=== PATIENT | female | born 1975 ===

== ENCOUNTER 2016-12-12 16:23 | Inpatient (IN) | payer OTHER, MEDICAID ==
[~2016-12-12] VITALS: Ht 162.6 cm; Wt 93.4 kg
[~2016-12-12 16:23] MED LIST: DOXYCYCLINE MO100 MG ORAL; NORCO 10/3251 EA ORAL; VICODIN 5-3001 EACH ORAL; XANAX0.5 MG ORAL
[2016-12-12 17:06] VITALS: BP 105/67
--- NOTE | 2016-12-12 17:17 | Diagnostic Imaging Report ---
Indication: Vertebral Technique: One view of the chest Comparison: none Findings: Lungs and pleural spaces are clear. The heart size is normal. Aorta is tortuous and ectatic Impression: No acute process
[2016-12-12 17:21] LABS: BASOPHILS % (AUTO) 1.9 % (0.0-2.0); EOSINOPHILS % (AUTO) 3.5 % (0.0-3.0); LYMPHOCYTES % (AUTO) 24.6 % (20.0-45.0); MEAN CORPUSCULAR HEMOGLOBIN 21.6 PG (27.0-31.0); MEAN CORPUSCULAR HGB CONC 31.2 G/DL (32.0-36.0); MEAN CORPUSCULAR VOLUME 69 FL (80-99); MEAN PLATELET VOLUME 8.7 FL (6.5-10.1); MONOCYTES % (AUTO) 7.2 % (1.0-10.0); NEUTROPHILS % (AUTO) 62.8 % (45.0-75.0); PLATELET COUNT 333 K/UL (150-450); RED BLOOD COUNT 5.25 M/UL (4.20-5.40); RED CELL DISTRIBUTION WIDTH 14.6 % (11.6-14.8); WHITE BLOOD COUNT 9.1 K/UL (4.8-10.8)
[2016-12-12 17:37] LABS: APPEARANCE,URINE CLEAR; KETONES,URINE NEGATIVE (NEGATIVE); LEUKOCYTE ESTERASE ,URINE NEGATIVE (NEGATIVE); NITRITE,URINE NEGATIVE (NEGATIVE); PH,URINE 7 (4.5-8.0); PROTEIN,URINE NEGATIVE (NEGATIVE); UROBILINOGEN,URINE NORMAL MG/DL (0.0-1.0)
[2016-12-12 17:39] LABS: ALANINE AMINOTRANSFERASE 6 U/L (3-33); ALBUMIN/GLOBULIN RATIO 1.4 (1.0-2.7); ANION GAP 15 (5-15); ASPARTATE AMINO TRANSFERASE 11 U/L (5-40); CALCIUM 8.7 mg/dL (8.6-10.2); CARBON DIOXIDE 23 mEQ/L (20-30); CHLORIDE 99 mEQ/L (98-107); CREATININE 0.8 mg/dL (0.5-0.9); GLOMERULAR FILTRATION RATE > 60 mL/min (>60); HEMOLYSIS 3; POTASSIUM 4.2 mEQ/L (3.4-4.9); SODIUM 137 mEQ/L (135-145); TOTAL PROTEIN 6.8 g/dL (6.6-8.7); TROPONIN I < 0.30 ng/mL (<=0.30)
[2016-12-12 17:44] LABS: RBC,URINE 0-2 /HPF (0 - 2)
[2016-12-12 17:45] LABS: SQUAMOUS EPITHELIAL CELL,UR FEW /LPF (NONE/OCC); WBC,URINE 0 /HPF (0 - 2)
[2016-12-12 17:49] LABS: CKMB < 1.5 ng/mL (< 3.8)
[2016-12-12] MEDS ORDERED: XANAX0.5 MG ORAL (18:19)
--- NOTE | 2016-12-12 19:14 | History and Physical ---
History of Present Illness General Date patient seen: Dec 12, 2016 Time patient seen: 19:09 Reason for Hospitalization: Pain Present Illness HPI 41 y/o AA female with hx of hydradenitis for several years, not diagnosed until recently. She has significant disease in her groin and buttocks area. She has taken abx as an outpatient before (doxy) and that stopped working according to the pt. Denied ever having fevers/chills. She states that the pain has been increasing lately, preventing her from accomplishing some tasks, and that OTC pain meds are not longer providing relief. She has also noticed fluid draining from her buttocks the past 2 days, no fevers/chills. Denies smoking, occasional alcohol use, no recreational drug use. She just recently had surgery here and did not have periop or postop complications. Allergies: Coded Allergies: No Known Allergies (Unverified , 03/04/16) Medication History Scheduled Doxycycline Monohydrate* (Doxycycline Monohydrate*), 100 MG ORAL TWICE A DAY, ( Reported) Scheduled PRN Hydrocodone/Acetaminophen (Hydrocodon-Acetaminophn 10-325), 1 TAB ORAL Q6H PRN for For Pain, (Reported) Miscellaneous Medications Alprazolam* (Xanax*), 0.5 MG ORAL, (Reported) Patient History Healthcare decision maker Resuscitation status Advanced Directive on File Review of Systems ROS Narrative CONSTITUTIONAL: No weight loss, fever, chills, weakness or fatigue. HEENT: Eyes: No visual loss, blurred vision, double vision or yellow sclerae. Ears, Nose, Throat: No hearing loss, sneezing, congestion, runny nose or sore throat. SKIN: No rash or itching. CARDIOVASCULAR: No chest pain, chest pressure or chest discomfort. No palpitations or edema. RESPIRATORY: No shortness of breath, cough or sputum. GASTROINTESTINAL: No anorexia, nausea, vomiting or diarrhea. No abdominal pain or blood. NEUROLOGICAL: No headache, dizziness, syncope, paralysis, ataxia, numbness or tingling in the extremities. No change in bowel or bladder control. MUSCULOSKELETAL: No muscle, back pain, joint pain or stiffness. + buttocks pain , +buttocks drainage HEMATOLOGIC: No anemia, bleeding or bruising. LYMPHATICS: No enlarged nodes. No history of splenectomy. PSYCHIATRIC: No history of depression or anxiety. ENDOCRINOLOGIC: No reports of sweating, cold or heat intolerance. No polyuria or polydipsia. ALLERGIES: No history of asthma, hives, eczema or rhinitis. Physical Exam Physical Exam Narrative General: alert, cooperative, no distress, appears stated age Head: normocephalic, without obvious abnormality, atraumatic Eyes: conjunctivae/corneas clear. PERRL, EOM's intact Throat: lips, mucosa, and tongue normal. MMM Neck: supple, symmetrical, trachea midline, and no JVD Lungs: clear to auscultation bilaterally Heart: regular rate and rhythm, S1, S2 normal, no murmur, click, rub or gallop Abdomen: soft, non-tender, non-distended, bowel sounds normal; no masses or organomegaly Extremities: extremities normal, atraumatic, no cyanosis or edema. Buttocks shows a circumferential abscess with purulent fluid draining, no induration or fluctuance, no rubor, tender to palpation Pulses: 2+ and symmetric Skin: skin color, texture, turgor normal; no rashes or lesions Neurologic: grossly normal, no focal deficits Last 24 Hour Vital Signs Date Time Temp Pulse Resp B/P Pulse Ox O2 Delivery O2 Flow Rate FiO2 12/12/16 17:06 98.2 76 14 105/67 100 Room Air 12/12/16 16:29 97.9 86 19 117/78 98 Room Air Laboratory Tests Test 12/12/16 16:55 White Blood Count 9.1 K/UL (4.8-10.8) Red Blood Count 5.25 M/UL (4.20-5.40) Hemoglobin 11.4 G/DL (12.0-16.0) L Hematocrit 36.4 % (37.0-47.0) L Mean Corpuscular Volume 69 FL (80-99) L Mean Corpuscular Hemoglobin 21.6 PG (27.0-31.0) L Mean Corpuscular Hemoglobin Concent 31.2 G/DL (32.0-36.0) L Red Cell Distribution Width 14.6 % (11.6-14.8) Platelet Count 333 K/UL (150-450) Mean Platelet Volume 8.7 FL (6.5-10.1) Neutrophils (%) (Auto) 62.8 % (45.0-75.0) Lymphocytes (%) (Auto) 24.6 % (20.0-45.0) Monocytes (%) (Auto) 7.2 % (1.0-10.0) Eosinophils (%) (Auto) 3.5 % (0.0-3.0) H Basophils (%) (Auto) 1.9 % (0.0-2.0) Urine Color Pale yellow Urine Appearance Clear Urine pH 7 (4.5-8.0) Urine Specific [place] 1.005 (1.005-1.035) Urine Protein Negative (NEGATIVE) Urine Glucose (UA) Negative (NEGATIVE) Urine Ketones Negative (NEGATIVE) Urine Occult Blood 4+ (NEGATIVE) H Urine Nitrite Negative (NEGATIVE) Urine Bilirubin Negative (NEGATIVE) Urine Urobilinogen Normal MG/DL (0.0-1.0) Urine Leukocyte Esterase Negative (NEGATIVE) Urine RBC 0-2 /HPF (0 - 2) Urine WBC 0 /HPF (0 - 2) Urine Squamous Epithelial Cells Few /LPF (NONE/OCC) Urine Bacteria None /HPF (NONE) Sodium Level 137 mEQ/L (135-145) Potassium Level 4.2 mEQ/L (3.4-4.9) Chloride Level 99 mEQ/L (98-107) Carbon Dioxide Level 23 mEQ/L (20-30) Anion Gap 15 (5-15) Blood Urea Nitrogen 8 mg/dL (7-23) Creatinine 0.8 mg/dL (0.5-0.9) Estimat Glomerular Filtration Rate > 60 mL/min (>60) Glucose Level 88 mg/dL (74-106) Lactic Acid Level 1.00 mmol/L (0.66-2.22) Calcium Level 8.7 mg/dL (8.6-10.2) Total Bilirubin < 0.2 mg/dL (0.0-1.2) Aspartate Amino Transf (AST/SGOT) 11 U/L (5-40) Alanine Aminotransferase (ALT/SGPT) 6 U/L (3-33) Alkaline Phosphatase 63 U/L (35-104) Total Creatine Kinase 95 U/L (26-140) Creatine Kinase MB < 1.5 ng/mL (< 3.8) Creatine Kinase MB Relative Index 1.5 Troponin I < 0.30 ng/mL (<=0.30) Total Protein 6.8 g/dL (6.6-8.7) Albumin 4.0 g/dL (3.5-5.2) Globulin 2.8 g/dL Albumin/Globulin Ratio 1.4 (1.0-2.7) Height (Feet): 5 Height (Inches): 4.00 Weight (Pounds): 206 Medications Current Medications Medications (Trade) Dose Ordered Sig/[place] Route PRN Reason Start Time Stop Time Status Last Admin Dose Admin Acetaminophen (Tylenol) 650 mg Q4H PRN ORAL Mild Pain (Pain Scale 1-3) 12/12/16 19:15 01/11/17 19:14 UNV Acetaminophen (Tylenol) 650 mg Q4H PRN ORAL fever 12/12/16 19:15 01/11/17 19:14 UNV Al Hydroxide/Mg Hydroxide (Mylanta II) 30 ml Q6H PRN ORAL dyspepsia 12/12/16 19:15 01/11/17 19:14 UNV Bisacodyl (Dulcolax) 10 mg HSPRN PRN RECTAL Constipation 12/12/16 19:15 01/11/17 19:14 UNV Cefazolin Sodium (Ancef 1gm/50ml premix) 50 ml @ 100 mls/hr Q8HR IVPB 12/12/16 22:00 12/19/16 21:59 UNV Dextrose STAT PRN IV Hypoglycemia 12/12/16 19:15 01/11/17 19:14 UNV Dextrose/Sodium Chloride (D5ns) 1,000 ml @ 50 mls/hr Q20H IV 12/13/16 00:00 01/12/17 00:00 UNV Diphenhydramine HCl (Benadryl) 25 mg Q6H PRN ORAL Itching/Pruritis 12/12/16 19:15 01/11/17 19:14 UNV Docusate Sodium (Colace) 100 mg EVERY 12 HOURS ORAL 12/12/16 21:00 01/11/17 20:59 UNV Magnesium Hydroxide (Mom) 30 ml HSPRN PRN ORAL Constipation 12/12/16 19:15 01/11/17 19:14 UNV Morphine Sulfate (Morphine Sulfate) 2 mg Q4HR PRN IVP Moderate Pain (Pain Scale 4-6) 12/12/16 19:15 12/19/16 19:14 UNV Morphine Sulfate (Morphine Sulfate) 4 mg Q4HR PRN IVP Severe Pain (Pain Scale 7-10) 12/12/16 19:15 12/19/16 19:14 UNV Ondansetron HCl (Zofran) 4 mg Q6H PRN IVP Nausea & Vomiting 12/12/16 19:15 01/11/17 19:14 UNV Polyethylene Glycol (Miralax) 17 gm HSPRN PRN ORAL Constipation 12/12/16 19:15 01/11/17 19:14 UNV Temazepam (Restoril) 15 mg HSPRN PRN ORAL Insomnia 12/12/16 19:15 12/19/16 19:14 UNV Assessment/Plan Problem List: (1) Abscess of skin and subcutaneous tissue Assessment & Plan: Admit to inpatient Start IV abx Pain control Supp care Consult plastic surgery to determine if pt needs operative debridement or I+D f/u blood cx If patient is required to have surgery, based on the patient's medical history, and other available ancillary data, the patient is a LOW risk for an INTERMEDIATE risk procedure. Per the most recent ACC/AHA guidelines, the patient does not need any further cardiopulmonary testing prior to the procedure and there do not appear to be any clear medical contraindications to proceeding with the proposed procedure. A total of 31 mins of additional time was spent with the patient and coordination of care and counseling in addition to the face to face time spent with the patient ICD Codes: L02.91 - Cutaneous abscess, unspecified SNOMED: [id number] LEONARDO VASQUEZ Dec 12, 2016 19:14
[2016-12-12] MEDS ORDERED: Mylanta II UD 30ml ORAL PRN (19:15)
[2016-12-12] MEDS ORDERED: Morphine Sulfate 2mg/ml Inj IVP PRN (19:15)
[2016-12-12] MEDS ORDERED: Milk of Magnesia 30ml Ud ORAL PRN (19:15)
[2016-12-12] MEDS ORDERED: Morphine Sulfate 4mg/ml Inj IVP PRN (19:15)
[2016-12-12] MEDS ORDERED: Miralax 17gm pkt ORAL PRN (19:15)
[2016-12-12 19:31] VITALS: BP 111/71
[2016-12-12 20:00] VITALS: BP 102/70
--- NOTE | 2016-12-12 20:08 | Emergency Room Report ---
History of Present Illness General Chief Complaint: Pain Source: Patient Present Illness HPI 41-year-old female sent to ED for evaluation. Patient referred here by Dr. Sloan. Patient has history of hidradenitis in multiple areas of her body. patient has had multiple surgeries over the years. Patient was sent here today because she had drainage from hidradenitis on her left buttocks. Denies any pain. Denies any fevers or chills. No aggravating or relieving factors. Denies any other associated symptoms Allergies: Coded Allergies: No Known Allergies (Unverified , 03/04/16) Patient History Past Medical History: none Past Surgical History: none Pertinent Family History: none Social History: Denies: alcohol use, drug use, smoking Last Menstrual Period: 12/10/16 Now: No Immunizations: UTD Reviewed Nursing Documentation: PMH: Agreed, PSxH: Agreed Nursing Documentation-PMH Past Medical History: No History, Except For Hx Cardiac Problems: No Hx Cancer: No Hx Gastrointestinal Problems: No Hx Neurological Problems: No - hidradenitis Review of Systems All Other Systems: negative except mentioned in HPI Physical Exam Vital Signs Date Time Temp Pulse Resp B/P Pulse Ox O2 Delivery O2 Flow Rate FiO2 12/12/16 16:29 97.9 86 19 117/78 98 Room Air Sp02 EP Interpretation: reviewed, normal General Appearance: no apparent distress, alert, GCS 15, non-toxic Head: normocephalic ENT: normal ENT inspection Neck: normal inspection Respiratory: chest non-tender, lungs clear, normal breath sounds, speaking full sentences Cardiovascular #1: regular rate, rhythm, no edema Gastrointestinal: normal bowel sounds, non tender, soft, non-distended, no guarding, no rebound Rectal: deferred Genitourinary: no CVA tenderness Musculoskeletal: normal inspection Neurologic: alert, oriented x3, responsive, motor strength/tone normal, sensory intact, speech normal Psychiatric: normal inspection Skin: other - hidradenitis to L buttock with drainage noted Lymphatic: normal inspection Medical Decision Making Diagnostic Impression: Primary Impression: infected hidradenitis ER Course Hospital Course 41-year-old female referred to ED for evaluation of drainage from her buttock. History of hidradenitis Differential diagnoses include: cellulitis, hidradenitis, fistula Clinical course Patient placed on stretcher. After initial history and physical I ordered labs , blood Cx, EKG, CXR labs reviewed -no leukocytosis, Hb/Hct stable, no electrolyte abnormalities. EKG - NSR, no ischemic changes CXR unremarkable wound culture obtained antibiotics given. Case discussed with Dr Ware and he agreed to accept the patient to his service for further care and support Diagnosis - infected hidradenitis Patient admitted to floor in serious condition Labs Test 12/12/16 16:55 White Blood Count 9.1 K/UL (4.8-10.8) Red Blood Count 5.25 M/UL (4.20-5.40) Hemoglobin 11.4 G/DL (12.0-16.0) Hematocrit 36.4 % (37.0-47.0) Mean Corpuscular Volume 69 FL (80-99) Mean Corpuscular Hemoglobin 21.6 PG (27.0-31.0) Mean Corpuscular Hemoglobin Concent 31.2 G/DL (32.0-36.0) Red Cell Distribution Width 14.6 % (11.6-14.8) Platelet Count 333 K/UL (150-450) Mean Platelet Volume 8.7 FL (6.5-10.1) Neutrophils (%) (Auto) 62.8 % (45.0-75.0) Lymphocytes (%) (Auto) 24.6 % (20.0-45.0) Monocytes (%) (Auto) 7.2 % (1.0-10.0) Eosinophils (%) (Auto) 3.5 % (0.0-3.0) Basophils (%) (Auto) 1.9 % (0.0-2.0) Urine Color Pale yellow Urine Appearance Clear Urine pH 7 (4.5-8.0) Urine Specific [place] 1.005 (1.005-1.035) Urine Protein Negative (NEGATIVE) Urine Glucose (UA) Negative (NEGATIVE) Urine Ketones Negative (NEGATIVE) Urine Occult Blood 4+ (NEGATIVE) Urine Nitrite Negative (NEGATIVE) Urine Bilirubin Negative (NEGATIVE) Urine Urobilinogen Normal MG/DL (0.0-1.0) Urine Leukocyte Esterase Negative (NEGATIVE) Urine RBC 0-2 /HPF (0 - 2) Urine WBC 0 /HPF (0 - 2) Urine Squamous Epithelial Cells Few /LPF (NONE/OCC) Urine Bacteria None /HPF (NONE) Sodium Level 137 mEQ/L (135-145) Potassium Level 4.2 mEQ/L (3.4-4.9) Chloride Level 99 mEQ/L (98-107) Carbon Dioxide Level 23 mEQ/L (20-30) Anion Gap 15 (5-15) Blood Urea Nitrogen 8 mg/dL (7-23) Creatinine 0.8 mg/dL (0.5-0.9) Estimat Glomerular Filtration Rate > 60 mL/min (>60) Glucose Level 88 mg/dL (74-106) Lactic Acid Level 1.00 mmol/L (0.66-2.22) Calcium Level 8.7 mg/dL (8.6-10.2) Total Bilirubin < 0.2 mg/dL (0.0-1.2) Aspartate Amino Transf (AST/SGOT) 11 U/L (5-40) Alanine Aminotransferase (ALT/SGPT) 6 U/L (3-33) Alkaline Phosphatase 63 U/L (35-104) Total Creatine Kinase 95 U/L (26-140) Creatine Kinase MB < 1.5 ng/mL (< 3.8) Creatine Kinase MB Relative Index 1.5 Troponin I < 0.30 ng/mL (<=0.30) Total Protein 6.8 g/dL (6.6-8.7) Albumin 4.0 g/dL (3.5-5.2) Globulin 2.8 g/dL Albumin/Globulin Ratio 1.4 (1.0-2.7) EKG Diagnostic Results Rate: normal Rhythm: NSR ST Segments: no acute changes ASA given to the pt in ED: No Rhythm Strip Diag. Results EP Interpretation: yes Rhythm: NSR, no PVC's, no ectopy Chest X-Ray Diagnostic Results EP Interpretation: No Findings: no consolidation, no effusion, no pneumothorax, no acute cardiopulmonary disease Number of Views: 1 Last Vital Signs Date Time Temp Pulse Resp B/P Pulse Ox O2 Delivery O2 Flow Rate FiO2 12/12/16 19:36 98.4 71 16 111/71 100 Room Air Status: improved Disposition: ADMITTED INPATIENT Condition: Serious Referrals: NON PHYSICIAN (PCP) LEON AYERS M.D. Dec 12, 2016 20:08
[2016-12-12] MEDS: Docusate 100mg cap ORAL SCH (21:00)
[2016-12-12] MEDS: ceFAZolin sod 1 GM in D5W 55 ML IVP SCH (22:19)
[2016-12-13] VITALS (16 sets, daily range): BP systolic 106–138; BP diastolic 60–83
[2016-12-13] MEDS: D5NS 1,000 ML IV SCH ×2 (01:59→20:00)
[2016-12-13] MEDS: ceFAZolin sod 1 GM in D5W 55 ML IVP SCH ×3 (05:55→21:47)
[2016-12-13 07:31] LABS: ANION GAP 14 (5-15); CALCIUM 7.9 mg/dL (8.6-10.2); CARBON DIOXIDE 24 mEQ/L (20-30); CHLORIDE 104 mEQ/L (98-107); CREATININE 0.8 mg/dL (0.5-0.9); GLOMERULAR FILTRATION RATE > 60 mL/min (>60); HEMOLYSIS 0; POTASSIUM 3.9 mEQ/L (3.4-4.9); SODIUM 142 mEQ/L (135-145)
[2016-12-13 07:37] LABS: PROTHROMBIN TIME 10.5 SEC (9.30-11.50)
[2016-12-13] MEDS: Docusate 100mg cap ORAL SCH ×2 (09:00→21:47)
--- NOTE | 2016-12-13 09:00 | Pre-Procedure Note/Attestation ---
Pre-Procedure Note/Attestation Complete Prior to Procedure Planned Procedure: left Procedure Narrative: Left breast wound closure and excision of pilonidal cyst with flap closure Attestation I attest that I discussed the nature of the procedure; its benefits; risks and complications; and alternatives (and the risks and benefits of such alternatives ), prior to the procedure, with the patient (or the patient's legal leather goods sales representative). I attest that, if there was a reasonable possibility of needing a blood transfusion, the patient (or the patient's legal leather goods sales representative) was given the [facility] standardized written summary, pursuant to the Bhaskar [place] Blood Safety Act ([place] Health and Safety Code # 1645, as amended). I attest that I re-evaluated the patient just prior to the surgery and that there has been no change in the patient's H&P, except as documented below: WANDER CHAUHAN Dec 13, 2016 09:00
--- NOTE | 2016-12-13 09:01 | Operative Note - PDOC ---
Operative Note Operative Note Pre-op Diagnosis: Left breast wound and infected pilonidal cyst Procedure: Closure of left breast wounds and excision of infected pilonidal cyst with flap closure Post-op Diagnosis: same as pre-op Surgeon: Luther Holder Pile Driving: Terrell Anesthesia: general Specimen: yes Complications: none Condition: stable Estimated Blood Loss: minimal Drains: JOHANA Implant(s) used?: No WANDER CHAUHAN Dec 13, 2016 09:01
[2016-12-13] MEDS ORDERED: Zolpidem 5mg tab ORAL PRN (09:15)
[2016-12-13] MEDS ORDERED: Bacitracin 50000 Units Vial ONE (09:34)
[2016-12-13] MEDS ORDERED: Lidocaine 1% 10mg/ml/Epi 0.005mg/ml 30ml vial INJ ONE (09:34)
[2016-12-13] MEDS ORDERED: NS Irrig 1000ml IRRIG ONE (09:50)
[2016-12-13] MEDS ORDERED: Zemuron 50mg/5ml Inj IV ONE (10:00)
[2016-12-13] MEDS ORDERED: fentaNYL 250mcg/5ml ONE (10:00)
[2016-12-13] MEDS ORDERED: Sterile Water Irrig 1000ml IRRIG ONE (10:00)
[2016-12-13] MEDS ORDERED: Midazolam 2mg/2ml Inj ONE (10:00)
[2016-12-13] MEDS ORDERED: Glycopyrrolate 0.2mg/ml 1ml Vial ONE (10:00)
[2016-12-13] MEDS ORDERED: Ketorolac 30mg Inj ONE (10:00)
[2016-12-13] MEDS ORDERED: NS Irrig 1000ml ONE (10:00)
[2016-12-13] MEDS ORDERED: Propofol 10mg/ml 20ml IV ONE ×2 (10:00)
[2016-12-13] MEDS ORDERED: Succinylcholine 20mg/ml 10ml vial ONE (10:00)
[2016-12-13] MEDS ORDERED: Neostigmine 1mg/ml 10ml Inj ONE (10:00)
[2016-12-13] MEDS ORDERED: LR 1000ml ONE (10:00)
[2016-12-13] MEDS ORDERED: Surgicel 4in x 8in TOPIC ONE (10:23)
--- NOTE | 2016-12-13 10:29 | Anethesia Preoperative Eval ---
Anesthesia Pre-op PMH/ROS General Date of Evaluation: Dec 13, 2016 Time of Evaluation: 09:10 Anesthesiologist: Ovidio ASA Score: ASA 2 Mallampati Score Class I : Soft palate, uvula, fauces, pillars visible Class II: Soft palate, uvula, fauces visible Class III: Soft palate, base of uvula visible Class IV: Only hard plate visible Mallampati Classification: Class II Surgeon: Layla Diagnosis: L breas wound dehisense infected pilonidal cyst Surgical Procedure: Revision and closure of L breast wound excision of pilonidal cyst Anesthesia History: none Family History: no anesthesia problems Allergies: Coded Allergies: No Known Allergies (Unverified , 03/04/16) Past Medical History Cardiovascular: Denies: CAD, HTN, ID, arrhythmia, other, valve dz Pulmonary: Denies: COPD, DARLENE, asthma, other Gastrointestinal/Genitourinary: Reports: GERD, Denies: CRI, ESRD, other Neurologic/Psychiatric: Denies: CVA, TIA, dementia, depression/anxiety, other Endocrine: Denies: DM, hypothyroidism, other, steroids HEENT: Denies: [place] (L), [place] (R), cataract (L), cataract (R), glaucoma, other Hematology/Immune: Reports: anemia - mild, Denies: DVT, bleeding disorder, other Musculoskeletal/Integumentary: Reports: other - Recurrent HS, Denies: DDD, DJD, OA, RA, edema Other: obesity PMH Narrative: as above PSxH Narrative: Multiple Sx for HS treatment, breasts reduction Anesthesia Pre-op Phys. Exam Physician Exam Last Vital Signs Date Time Temp Pulse Resp B/P Pulse Ox O2 Delivery O2 Flow Rate FiO2 12/13/16 08:00 97.3 65 21 118/83 99 Room Air Constitutional: NAD Neurologic: CN 2-12 intact Cardiovascular: RRR, no M/R/G Respiratory: CTA Gastrointestinal: other - obesity Airway Exam Mallampati Score: Class II MO: full Neck: flexible ROM: full Teeth: intact Dentures: no lower, no upper Anesthesia Pre-op A/P Labs Hematology Test 12/12/16 16:55 White Blood Count 9.1 K/UL (4.8-10.8) Red Blood Count 5.25 M/UL (4.20-5.40) Hemoglobin 11.4 G/DL (12.0-16.0) L Hematocrit 36.4 % (37.0-47.0) L Mean Corpuscular Volume 69 FL (80-99) L Mean Corpuscular Hemoglobin 21.6 PG (27.0-31.0) L Mean Corpuscular Hemoglobin Concent 31.2 G/DL (32.0-36.0) L Red Cell Distribution Width 14.6 % (11.6-14.8) Platelet Count 333 K/UL (150-450) Mean Platelet Volume 8.7 FL (6.5-10.1) Neutrophils (%) (Auto) 62.8 % (45.0-75.0) Lymphocytes (%) (Auto) 24.6 % (20.0-45.0) Monocytes (%) (Auto) 7.2 % (1.0-10.0) Eosinophils (%) (Auto) 3.5 % (0.0-3.0) H Basophils (%) (Auto) 1.9 % (0.0-2.0) Coagulation Test 12/13/16 06:40 Prothrombin Time 10.5 SEC (9.30-11.50) Prothromb Time International Ratio 1.0 (0.9-1.1) Activated Partial Thromboplast Time 28 SEC (23-33) Chemistry Test 12/12/16 16:55 12/13/16 06:40 Sodium Level 137 mEQ/L (135-145) 142 mEQ/L (135-145) Potassium Level 4.2 mEQ/L (3.4-4.9) 3.9 mEQ/L (3.4-4.9) Chloride Level 99 mEQ/L (98-107) 104 mEQ/L (98-107) Carbon Dioxide Level 23 mEQ/L (20-30) 24 mEQ/L (20-30) Anion Gap 15 (5-15) 14 (5-15) Blood Urea Nitrogen 8 mg/dL (7-23) 7 mg/dL (7-23) Creatinine 0.8 mg/dL (0.5-0.9) 0.8 mg/dL (0.5-0.9) Estimat Glomerular Filtration Rate > 60 mL/min (>60) > 60 mL/min (>60) Glucose Level 88 mg/dL (74-106) 97 mg/dL (74-106) Lactic Acid Level 1.00 mmol/L (0.66-2.22) Calcium Level 8.7 mg/dL (8.6-10.2) 7.9 mg/dL (8.6-10.2) L Total Bilirubin < 0.2 mg/dL (0.0-1.2) Aspartate Amino Transf (AST/SGOT) 11 U/L (5-40) Alanine Aminotransferase (ALT/SGPT) 6 U/L (3-33) Alkaline Phosphatase 63 U/L (35-104) Total Creatine Kinase 95 U/L (26-140) Creatine Kinase MB < 1.5 ng/mL (< 3.8) Creatine Kinase MB Relative Index 1.5 Troponin I < 0.30 ng/mL (<=0.30) Total Protein 6.8 g/dL (6.6-8.7) Albumin 4.0 g/dL (3.5-5.2) Globulin 2.8 g/dL Albumin/Globulin Ratio 1.4 (1.0-2.7) Urine Test Test 12/13/16 08:00 Urine HCG, Qualitative Negative Risk Assessment & Plan Assessment: ASA 2 Plan: GA with ETT prone position for 2-nd part Status Change Before Surgery: No Pre-Antibiotics Drug: Ancef 2gr. Given Within 1 Hr of Incision: Yes Time Given: 10:05 YOGI MANLEY M.D. Dec 13, 2016 10:29
[2016-12-13] MEDS ORDERED: LR 1000ml 1,000 ML IVLG SCH (11:02)
[2016-12-13] MEDS ORDERED: fentaNYL 100 mcg/2 mL IV PRN (11:15)
[2016-12-13] MEDS ORDERED: Meperidine 25mg/ml Inj IV PRN (11:15)
[2016-12-13] MEDS ORDERED: Hydromorphone 0.5mg/0.5ml inj IVP PRN (11:15)
[2016-12-13] MEDS ORDERED: Ketorolac 30mg Inj IV PRN (11:15)
[2016-12-13] MEDS ORDERED: DiphenhydrAMINE 50mg/ml Inj IVP PRN (11:15)
[2016-12-13] MEDS ORDERED: Midazolam 2mg/2ml Inj IVP PRN (11:15)
[2016-12-13] MEDS ORDERED: Metoclopramide 10mg/2ml Inj IVP PRN (11:15)
[2016-12-13] MEDS ORDERED: Rate Change PCA 1 Each MISC PRN (13:00)
[2016-12-13] MEDS: PCA shift volume MISC SCH ×3 (13:00→23:15)
--- NOTE | 2016-12-13 13:11 | Immediate Post-Op Evaluation ---
Immediate Post-Op Evalulation Immediate Post-Op Evalulation Procedure: Revision and closure of L breast wounds excision of pilonidal cyst Date of Evaluation: Dec 13, 2016 Time of Evaluation: 11:50 IV Fluids: 1200 Blood Products: none Estimated Blood Loss: 50 Urinary Output: none Blood Pressure Systolic: 124 Blood Pressure Diastolic: 72 Pulse Rate: 68 Respiratory Rate: 20 O2 Sat by Pulse Oximetry: 99 Temperature (Fahrenheit): 97.6 Pain Score (1-10): 2 Nausea: No Vomiting: No Complications none Patient Status: reacts, patent, extubated, none Hydration Status: adequate YOGI MANLEY M.D. Dec 13, 2016 13:11
[2016-12-13] MEDS ORDERED: Morphine Sulfate 4mg/ml Inj IVP PRN (13:15)
[2016-12-13] MEDS: PCA HYDROmorphone 1mg/ml 30 ML IV PRN ×2 (13:23→14:17)
[2016-12-13] MEDS ORDERED: ceFAZolin sod 1 GM in D5W 55 ML IVPB SCH (14:00)
--- NOTE | 2016-12-13 14:41 | General Progress Note ---
Assessment/Plan Problem List: (1) Abscess of skin and subcutaneous tissue Assessment & Plan: Cont IV abx Pain control Supp care Consult plastic surgery to determine if pt needs operative debridement or I+D f/u blood cx A total of 31 mins of additional time was spent with the patient and coordination of care and counseling in addition to the face to face time spent with the patient ICD Codes: L02.91 - Cutaneous abscess, unspecified SNOMED: 71366977 Subjective Date patient seen: Dec 13, 2016 Time patient seen: 14:38 ROS Limited/Unobtainable: No Allergies: Coded Allergies: No Known Allergies (Unverified , 03/04/16) Subjective s/p I+D of abscess, no periop or postop complications. No chest pain or dyspnea , no n/v. Objective Last 24 Hour Vital Signs Date Time Temp Pulse Resp B/P Pulse Ox O2 Delivery O2 Flow Rate FiO2 12/13/16 14:00 98.0 68 18 109/69 99 Room Air 12/13/16 13:55 12 12/13/16 13:53 98.0 12/13/16 13:45 66 17 108/70 99 Room Air 12/13/16 13:40 11 12/13/16 13:30 97.8 68 16 109/72 99 Room Air 12/13/16 13:23 11 12/13/16 13:15 67 16 106/71 99 Room Air 12/13/16 13:11 68 20 99 12/13/16 13:00 60 15 114/70 99 Room Air 12/13/16 12:45 60 12 116/70 100 Room Air 12/13/16 12:30 89 19 128/73 100 Room Air 12/13/16 12:15 68 16 128/75 100 Simple Mask 6.0 12/13/16 12:06 61 16 125/75 100 Simple Mask 6.0 12/13/16 11:56 68 16 120/83 100 Simple Mask 6.0 12/13/16 11:51 74 16 115/71 100 Simple Mask 6.0 12/13/16 11:46 99.4 88 15 138/78 100 Simple Mask 6.0 12/13/16 08:00 97.3 65 21 118/83 99 Room Air 12/13/16 04:00 97.7 72 20 115/65 99 Room Air 2/16/17 20:00 97.9 81 17 102/70 99 Room Air 12/12/16 19:36 98.4 71 16 111/71 100 Room Air 12/12/16 19:31 98.4 71 16 111/71 100 Room Air 12/12/16 17:06 98.2 76 14 105/67 100 Room Air 12/12/16 16:29 97.9 86 19 117/78 98 Room Air Intake and Output 12/12/16 12/13/16 18:59 06:59 Intake Total 1000 ml 1374 ml Output Total 120 ml Balance 880 ml 1374 ml Intake Oral 124 ml IV Total 1000 ml 250 ml Other 1000 ml Output Urine Total 120 ml # Voids 1 2 Laboratory Tests 12/12/16 16:55: White Blood Count 9.1, Red Blood Count 5.25, Hemoglobin 11.4L, Hematocrit 36.4L , Mean Corpuscular Volume 69L, Mean Corpuscular Hemoglobin 21.6L, Mean Corpuscular Hemoglobin Concent 31.2L, Red Cell Distribution Width 14.6, Platelet Count 333, Mean Platelet Volume 8.7, Neutrophils (%) (Auto) 62.8, Lymphocytes (%) (Auto) 24.6, Monocytes (%) (Auto) 7.2, Eosinophils (%) (Auto) 3.5H, Basophils (%) (Auto) 1.9, Urine Color Pale yellow, Urine Appearance Clear , Urine pH 7, Urine Specific [place] 1.005, Urine Protein Negative, Urine Glucose (UA) Negative, Urine Ketones Negative, Urine Occult Blood 4+H, Urine Nitrite Negative, Urine Bilirubin Negative, Urine Urobilinogen Normal, Urine Leukocyte Esterase Negative, Urine RBC 0-2, Urine WBC 0, Urine Squamous Epithelial Cells Few, Urine Bacteria None, Sodium Level 137, Potassium Level 4.2 , Chloride Level 99, Carbon Dioxide Level 23, Anion Gap 15, Blood Urea Nitrogen 8, Creatinine 0.8, Estimat Glomerular Filtration Rate > 60, Glucose Level 88, Lactic Acid Level 1.00, Calcium Level 8.7, Total Bilirubin < 0.2, Aspartate Amino Transf (AST/SGOT) 11, Alanine Aminotransferase (ALT/SGPT) 6, Alkaline Phosphatase 63, Total Creatine Kinase 95, Creatine Kinase MB < 1.5, Creatine Kinase MB Relative Index 1.5, Troponin I < 0.30, Total Protein 6.8, Albumin 4.0 , Globulin 2.8, Albumin/Globulin Ratio 1.4 12/13/16 06:40: Sodium Level 142, Potassium Level 3.9, Chloride Level 104, Carbon Dioxide Level 24, Anion Gap 14, Blood Urea Nitrogen 7, Creatinine 0.8, Estimat Glomerular Filtration Rate > 60, Glucose Level 97, Calcium Level 7.9L, Prothrombin Time 10.5, Prothromb Time International Ratio 1.0, Activated Partial Thromboplast Time 28 12/13/16 08:00: Urine HCG, Qualitative Negative Height (Feet): 5 Height (Inches): 4.00 Weight (Pounds): 206 Objective General: alert, cooperative, no distress, appears stated age Head: normocephalic, without obvious abnormality, atraumatic Eyes: conjunctivae/corneas clear. PERRL, EOM's intact Throat: lips, mucosa, and tongue normal. MMM Neck: supple, symmetrical, trachea midline, and no JVD Lungs: clear to auscultation bilaterally Heart: regular rate and rhythm, S1, S2 normal, no murmur, click, rub or gallop Abdomen: soft, non-tender, non-distended, bowel sounds normal; no masses or organomegaly Extremities: extremities normal, atraumatic, no cyanosis or edema Pulses: 2+ and symmetric Skin: skin color, texture, turgor normal; no rashes or lesions Neurologic: grossly normal, no focal deficits LEONARDO VASQUEZ Dec 13, 2016 14:41
--- NOTE | 2016-12-13 14:47 | Cardiology Report ---
APPROVED REPORT EKG Measurement Heart [id number] Normal sinus rhythm Low voltage QRS Borderline ECG
--- NOTE | 2016-12-13 15:29 | Consultation ---
DATE OF CONSULTATION: 12/13/2016 ADMITTING PHYSICIAN: Kenny Green M.D. HISTORY OF PRESENT ILLNESS: This is a 41-year-old female, who is well known to me, who presents to the emergency room for pain and drainage from her lower back pilonidal cyst and also has a small opening around her left breast. She is status post breast reduction. She presented with these symptoms. In particular, her lower back wound was causing her significant pain and drainage. She was admitted, started on IV antibiotics and I saw the patient and felt that she was an appropriate candidate for surgical management. PAST MEDICAL HISTORY: Significant for hidradenitis status post multiple surgical reconstruction. PAST SURGICAL HISTORY: As above. MEDICATIONS: None. ALLERGIES: None. PHYSICAL EXAMINATION: GENERAL: The patient is alert and oriented x3. HEART: Regular rate and rhythm. CHEST: A well healed right breast and nicely healed left breast status post breast reduction, however, there is one small opening to the lateral aspect of the nipple on the left breast, which is open and draining a bit and the patient also has an abscess in the region of the lower buttock consistent with an infected pilonidal cyst. ASSESSMENT AND PLAN: This is a 41-year-old female, admitted, started on IV antibiotics for an infected pilonidal cyst. She will be taken to the operating room today for debridement and reconstruction as well as closure of her left breast wound. Remy Sloan M.D. DR: DELIA JOB#: [id number] CC:
--- NOTE | 2016-12-13 18:39 | Operative Note - Dictated ---
DATE OF OPERATION: 12/13/2016 PREOPERATIVE DIAGNOSES: 1. Open left breast wounds x2. 2. Infected pilonidal cyst/lower back wound. POSTOPERATIVE DIAGNOSES: 1. Open left breast wounds x2. 2. Infected pilonidal cyst/lower back wound. PROCEDURES: 1. Debridement of left breast inferior pole wound. 2. Adjacent tissue transfer closure of left breast inferior pole wound. 3. Debridement of left periareolar breast wound. 4. Complex closure of left breast areolar breast wound. 5. Excision of infected pilonidal cyst. 6. Elevation of a right-sided rotational gluteal fasciocutaneous flap for delayed closure of lower back wound. 7. Elevation of a left rotational gluteal fasciocutaneous flap for delayed closure of lower back wound. SURGEON: Remy Sloan M.D. FISH NET STRINGER: Chastity Tejada M.D. ANESTHESIA: General. COMPLICATIONS: None. DRAINS: Included a wound VAC in the lower back. SPECIMEN: Included a lower back/pilonidal tissue. EBL: 10 mL. DISPOSITION: Stable to the recovery room. INDICATIONS FOR SURGERY: This is a 41-year-old female, well known to me, who was admitted to the emergency room for an infected pilonidal cyst with persistent pain and drainage. On exam, she was also noted to have open left breast wounds approximately a month status post breast reduction and she was started on IV antibiotics and admitted by the medical team. Upon evaluation by me, I felt that she was an appropriate candidate for surgical treatment and debridement of her left breast wound and closure along with radical excision of the infected pilonidal cyst with flap closure. Given the fact that there was the possibility of a significant amount of pus present in the wound, the thought was that if we came across a significant amount of infection that we would leave the wound open and bring back the patient within 72 hours for definitive closure of her wounds. She understood the risks and benefits of surgery and agreed to proceed. DETAILS OF THE OPERATION: The patient was brought to the operating room and initially placed in the supine position on the operating room table. Her left chest was prepped and draped in a sterile and usual fashion. There were two open wounds on her left breast, one at the inferior pole and the midline of the breast as well as one on the periareolar aspect of the wound on the lateral aspect. We first began by debriding the lower inferior pole breast wound down to healthy bleeding tissue. This left a defect that was approximately 2 x 1 cm that could not be closed primarily. As such, adjacent tissue transfer, had to be performed by mobilizing flaps on all three corners of the wound and once this was done, we were able to perform a relaxing incision deep to the skin to allow for adjacent tissue transfer closure of the wound. This was done using #0 and 2-0 Vicryl sutures and 3-0 Prolene was used to close the skin. This was further reinforced with Dermabond. Regarding the periareolar wound, this was also approached by incising the skin around the opening and the wound was saucerized all the way down to the base of the wound and the wound was then debrided, copiously irrigated with pulse lavage, and we placed some deep sutures to close the space that was created by the debridement and this complex closure was pursued using #0 and 2-0 Vicryl sutures and a 3-0 chromic was used to close the skin. At this point, dressings were placed on the left breast and the patient was then placed in this prone position to address her lower back wound. The area of the infection was delineated with a marking pen. It was an irregular type pattern and once the markings were made, the patient was prepped and draped and a #10 blade was then used to make the incision around the infection and the electrocautery was then used to open the wound all the way down to the level of the presacral fascia. We encountered approximately 3 mL of pus, which was evacuated and pulse lavage irrigation was performed on the wound. Given the fact that we came across this infection had solidified our plan of not performing definitive wound closure at this time. However, we did decide to proceed with elevation of bilateral rotation gluteal flaps to allow for staged closure within 72 hours. So markings were made for rotational advancement flaps on either side of the defect. The defect at this point, measured 5 x 6 cm and was not amenable to primary closure. The markings were made for the right-sided flap first. A #10 blade was then used to make the skin incision and the flap was elevated at the fasciocutaneous level for full mobilization of that flap. In a similar fashion, the contralateral left-sided rotation advancement gluteal flap was designed. A #10 blade was then used to make the superior skin incision and advanced it and was performed by releasing the flap at the fasciocutaneous junction to fully mobilize it. With the flaps fully mobilized, there were brought together in the midline and tailor tacked with otilia and they were noted to be effectively closing the wound without tension. At this point, the wound was then reopened and pulse lavage irrigation was used to further irrigate the wound and cleanse it. Hemostasis was then achieved. The flaps that were elevated were then placed back in situ using otilia and a wound VAC was then placed into the open wound to connect to the wound VAC machine. The patient tolerated the procedure well. There were no complications. The plan will be to bring the patient back to the operating room on Friday, which is in 72 hours for definitive flap inset and closure of her lower back wound. Remy Sloan M.D. DR: GIA JOB#: [id number] CC:
[2016-12-14 00:23] VITALS: BP 105/66
[2016-12-14 04:00] VITALS: BP 119/72
[2016-12-14] MEDS: ceFAZolin sod 1 GM in D5W 55 ML IVP SCH ×3 (05:52→21:51)
[2016-12-14] MEDS: PCA shift volume MISC SCH ×3 (07:00→23:41)
[2016-12-14 08:00] VITALS: BP 101/60
[2016-12-14] MEDS: Docusate 100mg cap ORAL SCH ×2 (09:13→21:51)
[2016-12-14] MEDS: Heparin 5000 units/ml inj SUBQ SCH ×2 (09:21→21:53)
--- NOTE | 2016-12-14 10:17 | 48 Hour Post Anesthesia Eval ---
Post Anesthesia Evaluation Procedure: Revision and closure of L breast wounds excision of pilonidal cyst Date of Evaluation: Dec 14, 2016 Time of Evaluation: 10:16 Blood Pressure Systolic: 116 0: 76 Pulse Rate: 82 Respiratory Rate: 20 Temperature (Fahrenheit): 97.5 O2 Sat by Pulse Oximetry: 98 Airway: patent Nausea: No Vomiting: No Pain Intensity: 2 Hydration Status: adequate Cardiopulmonary Status: stable Mental Status/LOC: patient returned to baseline Follow-up Care/Observations: n/a Post-Anesthesia Complications: none Follow-up care needed: N/A YOGI MANLEY M.D. Dec 14, 2016 10:17
--- NOTE | 2016-12-14 10:40 | General Progress Note ---
Progress Note Progress Note Pt seen and examined. POD # 1 from pilonidal excisional debridement and flap elevation with wound vac placement. Doing well and vac working fine. Plan for OR on Friday Am for definitive wound closure. WANDER Fox MD Dec 14, 2016 10:40
[2016-12-14 12:00] VITALS: BP 106/48
[2016-12-14] MEDS: PCA HYDROmorphone 1mg/ml 30 ML IV PRN (13:21)
--- NOTE | 2016-12-14 14:03 | General Progress Note ---
Assessment/Plan Problem List: (1) Abscess of skin and subcutaneous tissue Assessment & Plan: s/p I+D POD#1 Cont IV abx Pain control Supp care f/u blood cx A total of 31 mins of additional time was spent with the patient and coordination of care and counseling in addition to the face to face time spent with the patient ICD Codes: L02.91 - Cutaneous abscess, unspecified SNOMED: [id number] Subjective Date patient seen: Dec 14, 2016 Time patient seen: 14:00 ROS Limited/Unobtainable: No Allergies: Coded Allergies: No Known Allergies (Unverified , 03/04/16) Subjective s/p I+D of abscess, POD#1, no periop or postop complications. No chest pain or dyspnea, no n/v. Objective Last 24 Hour Vital Signs Date Time Temp Pulse Resp B/P Pulse Ox O2 Delivery O2 Flow Rate FiO2 12/14/16 12:00 97.7 73 17 106/48 95 Room Air 12/14/16 12:00 17 12/14/16 10:17 82 20 98 12/14/16 08:00 97.5 66 20 101/60 100 Room Air 12/14/16 08:00 17 12/14/16 04:00 97.3 68 18 119/72 98 Room Air 12/14/16 04:00 18 12/14/16 00:23 97.5 69 20 105/66 99 Room Air 12/14/16 00:00 16 12/13/16 20:00 16 12/13/16 20:00 97.3 73 17 112/60 100 Room Air 12/13/16 16:00 16 12/13/16 16:00 96.8 61 17 118/73 98 Room Air 12/13/16 15:10 18 12/13/16 14:40 18 12/13/16 14:10 18 Intake and Output 12/13/16 12/14/16 19:00 07:00 Intake Total 1750 ml 490 ml Output Total 50 ml 140 ml Balance 1700 ml 350 ml Intake Oral 240 ml IV Total 1750 ml 250 ml Drainage Total 140 ml Estimated Blood Loss 50 ml # Voids 6 Height (Feet): 5 Height (Inches): 4.00 Weight (Pounds): 206 Objective General: alert, cooperative, no distress, appears stated age Head: normocephalic, without obvious abnormality, atraumatic Eyes: conjunctivae/corneas clear. PERRL, EOM's intact Throat: lips, mucosa, and tongue normal. MMM Neck: supple, symmetrical, trachea midline, and no JVD Lungs: clear to auscultation bilaterally Heart: regular rate and rhythm, S1, S2 normal, no murmur, click, rub or gallop Abdomen: soft, non-tender, non-distended, bowel sounds normal; no masses or organomegaly Extremities: extremities normal, atraumatic, no cyanosis or edema Pulses: 2+ and symmetric Skin: skin color, texture, turgor normal; no rashes or lesions Neurologic: grossly normal, no focal deficits LEONARDO VASQUEZ Dec 14, 2016 14:03
[2016-12-14] MEDS: D5NS 1,000 ML IV SCH (14:58)
[2016-12-14 16:00] VITALS: BP 108/68
[2016-12-14 20:00] VITALS: BP 111/72
[2016-12-15 00:23] VITALS: BP 108/65
[2016-12-15 04:00] VITALS: BP 113/82
[2016-12-15] MEDS: ceFAZolin sod 1 GM in D5W 55 ML IVP SCH ×3 (05:00→23:55)
[2016-12-15] MEDS: PCA shift volume MISC SCH ×3 (07:15→23:00)
[2016-12-15] MEDS: Docusate 100mg cap ORAL SCH ×2 (07:59→21:36)
[2016-12-15 08:00] VITALS: BP 109/59
[2016-12-15] MEDS: Heparin 5000 units/ml inj SUBQ SCH ×2 (08:06→21:00)
[2016-12-15] MEDS ORDERED: Rate Change PCA 1 Each MISC PRN (11:15)
[2016-12-15] MEDS ORDERED: PCA HYDROmorphone 1mg/ml 30 ML IV PRN (12:00)
[2016-12-15 12:51] VITALS: BP 110/78
[2016-12-15] MEDS ORDERED: Morphine Sulfate 2mg/ml Inj IVP PRN (13:00)
[2016-12-15] MEDS: D5NS 1,000 ML IV SCH (13:11)
--- NOTE | 2016-12-15 13:18 | General Progress Note ---
Assessment/Plan Problem List: (1) Abscess of skin and subcutaneous tissue Assessment & Plan: s/p I+D POD#2 Cont IV abx Pain control Supp care f/u blood cx A total of 31 mins of additional time was spent with the patient and coordination of care and counseling in addition to the face to face time spent with the patient ICD Codes: L02.91 - Cutaneous abscess, unspecified SNOMED: [id number] Subjective Date patient seen: Dec 15, 2016 Time patient seen: 13:17 ROS Limited/Unobtainable: No Allergies: Coded Allergies: No Known Allergies (Unverified , 03/04/16) Subjective s/p I+D of abscess, POD#2, no periop or postop complications. No chest pain or dyspnea, no n/v. Objective Last 24 Hour Vital Signs Date Time Temp Pulse Resp B/P Pulse Ox O2 Delivery O2 Flow Rate FiO2 12/15/16 12:51 97.9 80 14 110/78 99 12/15/16 08:00 17 12/15/16 08:00 97.2 81 15 109/59 99 Room Air 12/15/16 04:00 97.3 65 20 113/82 95 Room Air 12/15/16 04:00 17 12/15/16 00:23 97.7 68 19 108/65 98 Room Air 12/15/16 00:00 17 12/14/16 20:00 97.7 76 18 111/72 98 Room Air 12/14/16 20:00 16 12/14/16 16:00 16 12/14/16 16:00 97.0 97 18 108/68 100 Room Air Intake and Output 12/14/16 12/15/16 19:00 07:00 Intake Total 680 ml 595 ml Output Total 150 ml Balance 530 ml 595 ml Intake Oral 480 ml 240 ml IV Total 200 ml 355 ml Drainage Total 150 ml # Voids 3 5 Height (Feet): 5 Height (Inches): 4.00 Weight (Pounds): 206 Objective General: alert, cooperative, no distress, appears stated age Head: normocephalic, without obvious abnormality, atraumatic Eyes: conjunctivae/corneas clear. PERRL, EOM's intact Throat: lips, mucosa, and tongue normal. MMM Neck: supple, symmetrical, trachea midline, and no JVD Lungs: clear to auscultation bilaterally Heart: regular rate and rhythm, S1, S2 normal, no murmur, click, rub or gallop Abdomen: soft, non-tender, non-distended, bowel sounds normal; no masses or organomegaly Extremities: extremities normal, atraumatic, no cyanosis or edema Pulses: 2+ and symmetric Skin: skin color, texture, turgor normal; no rashes or lesions Neurologic: grossly normal, no focal deficits LEONARDO VASQUEZ Dec 15, 2016 13:18
[2016-12-15 16:00] VITALS: BP 119/80
[2016-12-15 20:31] VITALS: BP 122/82
[2016-12-16] VITALS (14 sets, daily range): BP systolic 105–141; BP diastolic 54–94
[2016-12-16] MEDS: ceFAZolin sod 1 GM in D5W 55 ML IVP SCH ×3 (05:01→21:33)
[2016-12-16] MEDS ORDERED: Bacitracin 50000 Units Vial ONE (06:58)
[2016-12-16] MEDS ORDERED: Lidocaine 1% 10mg/ml/Epi 0.005mg/ml 30ml vial INJ ONE (06:58)
[2016-12-16] MEDS ORDERED: EPINEPHrine 1mg/1ml Amp ONE (07:16)
--- NOTE | 2016-12-16 07:19 | Pre-Procedure Note/Attestation ---
Pre-Procedure Note/Attestation Complete Prior to Procedure Planned Procedure: not applicable Procedure Narrative: Closure of lower back/sacral wound Indications for Procedure Pre-Operative Diagnosis: Open sacral wound Attestation I attest that I discussed the nature of the procedure; its benefits; risks and complications; and alternatives (and the risks and benefits of such alternatives ), prior to the procedure, with the patient (or the patient's legal medical sales representative). I attest that, if there was a reasonable possibility of needing a blood transfusion, the patient (or the patient's legal medical sales representative) was given the [facility] standardized written summary, pursuant to the Bhaskar Bartlett Blood Safety Act ([place] Health and Safety Code # 1645, as amended). I attest that I re-evaluated the patient just prior to the surgery and that there has been no change in the patient's H&P, except as documented below: WANDER CHAUHAN Dec 16, 2016 07:19
--- NOTE | 2016-12-16 07:20 | Operative Note - PDOC ---
Operative Note Operative Note Pre-op Diagnosis: Open sacral wound Procedure: Flap closure of lower back/sacral wound Post-op Diagnosis: same as pre-op Surgeon: Luther Mask Former: Terrell Anesthesia: general Specimen: yes Complications: none Condition: stable Estimated Blood Loss: minimal Drains: JOHANA Implant(s) used?: No WANDER CHAUHAN Dec 16, 2016 07:20
[2016-12-16] MEDS ORDERED: Rate Change PCA 1 Each MISC PRN (07:30)
[2016-12-16] MEDS ORDERED: Zolpidem 5mg tab ORAL PRN (07:30)
[2016-12-16] MEDS ORDERED: Neostigmine 1mg/ml 10ml Inj ONE (08:00)
[2016-12-16] MEDS ORDERED: Ketorolac 30mg Inj ONE (08:00)
[2016-12-16] MEDS: D5NS 1,000 ML IV SCH (08:00)
[2016-12-16] MEDS ORDERED: fentaNYL 250mcg/5ml ONE (08:00)
[2016-12-16] MEDS ORDERED: Zemuron 50mg/5ml Inj IV ONE (08:00)
[2016-12-16] MEDS ORDERED: LR 1000ml ONE (08:00)
[2016-12-16] MEDS ORDERED: Propofol 10mg/ml 20ml IV ONE (08:00)
[2016-12-16] MEDS ORDERED: NS Irrig 1000ml ONE (08:00)
[2016-12-16] MEDS ORDERED: Midazolam 2mg/2ml Inj ONE (08:00)
[2016-12-16] MEDS ORDERED: Glycopyrrolate 0.2mg/ml 1ml Vial ONE (08:00)
[2016-12-16] MEDS ORDERED: Sterile Water Irrig 1000ml IRRIG ONE (08:00)
[2016-12-16] MEDS: Docusate 100mg cap ORAL SCH ×2 (08:04→21:00)
[2016-12-16] MEDS: Heparin 5000 units/ml inj SUBQ SCH ×2 (08:05→21:00)
[2016-12-16] MEDS ORDERED: LR 1000ml 1,000 ML IVLG SCH (08:22)
--- NOTE | 2016-12-16 08:22 | Anethesia Preoperative Eval ---
Anesthesia Pre-op PMH/ROS General Date of Evaluation: Dec 16, 2016 Time of Evaluation: 07:20 Anesthesiologist: Ovidio ASA Score: ASA 2 Mallampati Score Class I : Soft palate, uvula, fauces, pillars visible Class II: Soft palate, uvula, fauces visible Class III: Soft palate, base of uvula visible Class IV: Only hard plate visible Mallampati Classification: Class II Surgeon: Luther Diagnosis: Infected pilonidal cyst Surgical Procedure: Revision and closure of lower back wound Anesthesia History: none Family History: no anesthesia problems Allergies: Coded Allergies: No Known Allergies (Unverified , 03/04/16) Past Medical History Cardiovascular: Denies: CAD, HTN, [place], arrhythmia, other, valve dz Pulmonary: Denies: COPD, DARLENE, asthma, other Gastrointestinal/Genitourinary: Reports: GERD, Denies: CRI, ESRD, other Neurologic/Psychiatric: Denies: CVA, TIA, dementia, depression/anxiety, other Endocrine: Denies: DM, hypothyroidism, other, steroids HEENT: Denies: RUBY (L), RUBY (R), cataract (L), cataract (R), glaucoma, other Hematology/Immune: Denies: DVT, anemia, bleeding disorder, other Musculoskeletal/Integumentary: Reports: other - Recurrent HS, Denies: DDD, DJD, OA, RA, edema Other: obesity PMH Narrative: as above PSxH Narrative: multiple Sx for HS treatment Anesthesia Pre-op Phys. Exam Physician Exam Last Vital Signs Date Time Temp Pulse Resp B/P Pulse Ox O2 Delivery O2 Flow Rate FiO2 12/16/16 04:00 97.0 65 18 108/65 98 Room Air 12/13/16 16:00 Constitutional: NAD Neurologic: CN 2-12 intact Cardiovascular: RRR, no M/R/G Respiratory: CTA Gastrointestinal: other - obesity Airway Exam Mallampati Score: Class II MO: full Neck: flexible ROM: full Teeth: intact Dentures: no lower, no upper Anesthesia Pre-op A/P Labs see chart Risk Assessment & Plan Assessment: ASA 2 Plan: GA with ETT prone position Status Change Before Surgery: No Pre-Antibiotics Drug: Ancef 1gr. Given Within 1 Hr of Incision: Yes Time Given: 07:56 YOGI MANLEY M.D. Dec 16, 2016 08:22
[2016-12-16] MEDS ORDERED: Hydromorphone 0.5mg/0.5ml inj IVP PRN (08:30)
[2016-12-16] MEDS ORDERED: Metoclopramide 10mg/2ml Inj IVP PRN (08:30)
[2016-12-16] MEDS ORDERED: DiphenhydrAMINE 50mg/ml Inj IVP PRN (08:30)
[2016-12-16] MEDS ORDERED: Midazolam 2mg/2ml Inj IVP PRN (08:30)
[2016-12-16] MEDS ORDERED: Meperidine 25mg/ml Inj IV PRN (08:30)
[2016-12-16] MEDS ORDERED: fentaNYL 100 mcg/2 mL IV PRN (08:30)
[2016-12-16] MEDS ORDERED: Ketorolac 30mg Inj IV PRN (08:30)
--- NOTE | 2016-12-16 09:38 | Immediate Post-Op Evaluation ---
Immediate Post-Op Evalulation Immediate Post-Op Evalulation Procedure: Revision and closure of lower back wound Date of Evaluation: Dec 16, 2016 Time of Evaluation: 09:37 IV Fluids: 1000 Blood Products: none Estimated Blood Loss: min Urinary Output: none Blood Pressure Systolic: 132 Blood Pressure Diastolic: 82 Pulse Rate: 78 Respiratory Rate: 20 O2 Sat by Pulse Oximetry: 99 Temperature (Fahrenheit): 98.3 Pain Score (1-10): 2 Nausea: No Vomiting: No Complications none Patient Status: reacts, patent, extubated, none Hydration Status: adequate YOGI MANLEY M.D. Dec 16, 2016 09:38
[2016-12-16] MEDS: PCA HYDROmorphone 1mg/ml 30 ML IV PRN (10:20)
--- NOTE | 2016-12-16 14:38 | General Progress Note ---
Assessment/Plan Problem List: (1) Abscess of skin and subcutaneous tissue Assessment & Plan: s/p I+D POD#3 Cont IV abx Pain control Supp care f/u blood cx A total of 31 mins of additional time was spent with the patient and coordination of care and counseling in addition to the face to face time spent with the patient ICD Codes: L02.91 - Cutaneous abscess, unspecified SNOMED: 33020746 Subjective Date patient seen: Dec 16, 2016 Time patient seen: 14:38 ROS Limited/Unobtainable: No Allergies: Coded Allergies: No Known Allergies (Unverified , 03/04/16) Subjective s/p I+D of abscess, POD#3, no periop or postop complications. No chest pain or dyspnea, no n/v. Objective Last 24 Hour Vital Signs Date Time Temp Pulse Resp B/P Pulse Ox O2 Delivery O2 Flow Rate FiO2 12/16/16 12:00 17 12/16/16 11:05 97.8 12/16/16 11:05 97.8 12/16/16 11:00 98.0 60 13 113/75 100 Nasal Cannula 3.0 12/16/16 11:00 15 12/16/16 10:45 58 13 122/70 100 Nasal Cannula 3.0 12/16/16 10:45 13 12/16/16 10:30 16 12/16/16 10:30 63 13 122/70 100 Nasal Cannula 3.0 12/16/16 10:20 71 15 122/70 100 Nasal Cannula 3.0 12/16/16 10:20 16 12/16/16 10:11 78 20 113/71 100 Nasal Cannula 3.0 12/16/16 10:00 78 22 121/71 100 Nasal Cannula 3.0 12/16/16 09:50 82 18 141/94 100 Nasal Cannula 3.0 12/16/16 09:40 70 13 122/83 100 Simple Mask 6.0 12/16/16 09:38 78 20 99 12/16/16 09:35 85 15 124/80 100 Simple Mask 6.0 12/16/16 09:28 98.1 83 14 130/74 100 Simple Mask 6.0 12/16/16 04:00 97.0 65 18 108/65 98 Room Air 12/16/16 04:00 19 12/16/16 00:00 20 12/16/16 00:00 96.6 68 18 111/54 100 Room Air 12/15/16 20:31 97.5 68 18 122/82 100 Room Air 12/15/16 16:00 95.9 79 18 119/80 98 Room Air 12/15/16 16:00 20 Intake and Output 12/15/16 12/16/16 19:00 07:00 Intake Total 1300 ml 500 ml Output Total 500 ml Balance 800 ml 500 ml Intake Oral 900 ml 240 ml IV Total 400 ml 260 ml Output Urine Total 500 ml # Voids 3 # Bowel Movements 2 Height (Feet): 5 Height (Inches): 4.00 Weight (Pounds): 206 Objective General: alert, cooperative, no distress, appears stated age Head: normocephalic, without obvious abnormality, atraumatic Eyes: conjunctivae/corneas clear. PERRL, EOM's intact Throat: lips, mucosa, and tongue normal. MMM Neck: supple, symmetrical, trachea midline, and no JVD Lungs: clear to auscultation bilaterally Heart: regular rate and rhythm, S1, S2 normal, no murmur, click, rub or gallop Abdomen: soft, non-tender, non-distended, bowel sounds normal; no masses or organomegaly Extremities: extremities normal, atraumatic, no cyanosis or edema Pulses: 2+ and symmetric Skin: skin color, texture, turgor normal; no rashes or lesions Neurologic: grossly normal, no focal deficits LEONARDO VASQUEZ Dec 16, 2016 14:38
[2016-12-16] MEDS: PCA shift volume MISC SCH ×2 (15:21→23:00)
--- NOTE | 2016-12-16 15:38 | Operative Note - Dictated ---
DATE OF OPERATION: 12/16/2016 PREOPERATIVE DIAGNOSIS: Open lower back/sacral wound. POSTOPERATIVE DIAGNOSIS: Open lower back/sacral wound. PROCEDURES: 1. Preparation of lower back wound for flap closure. 2. Readvancement of right rotational gluteal flap for closure of lower back wound. 3. Readvancement of left rotational gluteal flap for closure of lower back wound. 4. Elevation of a superiorly based posterior trunk flap for closure of sacral wound. SURGEON: Remy Sloan M.D. DESIGN ENGINEER: Chastity Tejada M.D. ANESTHESIA: General. COMPLICATIONS: None. EBL: 5 mL. DRAINS: One size #15 JOHANA. DISPOSITION: Stable to the recovery room. INDICATIONS FOR SURGERY: This is a 41-year-old female, who is now three days postop from excisional debridement of an infected pilonidal cyst in her lower back. She did well at the first operation undergoing the procedure with flap elevation, has been on a wound VAC, and has been stable since, and has been on antibiotics as well. She is prepared to undergo definitive closure of her wounds today. She understands the risks and benefits of surgery and agrees to proceed. DETAILS OF THE OPERATION: The patient was brought to the operating room and laid in the prone position on the operating room table. Her lower back and buttocks were prepped and draped in a sterile and usual fashion. We first began by debriding the nonviable tissue on the wound bed on either side of the wound as well as on the margins of the rotational flaps that have been previously elevated. Once this was done, we noted that the flaps on their own needed to be advanced further to allow for a tension-free closure. As such, both the right-sided and left-sided rotational gluteal flaps had to undergo a back cut to further mobilize them and allow for readvancement. These flaps were both based on the corresponding superior gluteal arteries on either side. With these back cuts made and both flaps readvanced, we noted that there needed to be additional tissue extruded superiorly. As such, a superiorly based posterior trunk flap was elevated based off of perforators of the superior gluteal artery as well as lumbar arteries. This was elevated just above the fascia at the level of the gluteus muscle epimysium. Once this was fully mobilized, we noted that the wound could be closed without any tension. Once all three flaps were prepared, the wound was then copiously irrigated with pulse lavage. Hemostasis was achieved, and all three flaps were then brought together and inset using a 0 Vicryl for the deep layer, 2-0 Vicryl for the superficial layer, and a 3-0 Vicryl for the dermis to close the skin. The superior aspect of the wound was closed with otilia, and the midline where the flaps came together was closed with a combination of 0 and 2-0 Prolene vertical mattress sutures. A JOHANA drain had been placed prior to closure. This was a size 15 and the drain was secured at the skin level using a 3-0 silk suture and we then placed Dermabond over the incision and then placed compressive dressings on top. The patient tolerated the procedure well, and there was no complication. Remy Sloan M.D. DR: RAFI JOB#: [id number] CC:
[2016-12-17] VITALS: BP 101/59
[2016-12-17 04:00] VITALS: BP 104/62
[2016-12-17] MEDS: D5NS 1,000 ML IV SCH ×2 (05:41→08:26)
[2016-12-17] MEDS: ceFAZolin sod 1 GM in D5W 55 ML IVP SCH ×3 (05:41→21:42)
[2016-12-17] MEDS: PCA shift volume MISC SCH ×3 (07:27→23:00)
[2016-12-17 08:07] VITALS: BP 117/75
[2016-12-17] MEDS: Docusate 100mg cap ORAL SCH ×2 (08:25→21:41)
[2016-12-17] MEDS: Heparin 5000 units/ml inj SUBQ SCH ×2 (08:26→21:50)
--- NOTE | 2016-12-17 08:27 | General Progress Note ---
Progress Note Progress Note Pt seen and examined. POD # 1 from closure of lower back wound. Doing well and pain well controlled. Dressings dry and intact. Will remove dressings in 48 hours. WANDER Fox MD Dec 17, 2016 08:27
--- NOTE | 2016-12-17 09:54 | 48 Hour Post Anesthesia Eval ---
Post Anesthesia Evaluation Procedure: Revision and closure of lower back wound Date of Evaluation: Dec 17, 2016 Time of Evaluation: 10:10 Blood Pressure Systolic: 117 0: 75 Pulse Rate: 72 Respiratory Rate: 21 Temperature (Fahrenheit): 98.4 O2 Sat by Pulse Oximetry: 97 Airway: patent Nausea: No Vomiting: No Pain Intensity: 2 Hydration Status: adequate Cardiopulmonary Status: Stable Mental Status/LOC: patient returned to baseline Follow-up Care/Observations: As per surgery Post-Anesthesia Complications: No anesthetic complication Follow-up care needed: N/A CHANEL LEDBETTER M.D. Dec 17, 2016 09:54
[2016-12-17] MEDS: PCA HYDROmorphone 1mg/ml 30 ML IV PRN (10:11)
[2016-12-17 11:56] VITALS: BP 109/79
[2016-12-17] MEDS ORDERED: D5NS 1000ml IV ONE (15:55)
[2016-12-17 16:03] VITALS: BP 111/73
--- NOTE | 2016-12-17 17:52 | General Progress Note ---
Assessment/Plan Problem List: (1) Abscess of skin and subcutaneous tissue Assessment & Plan: s/p I+D POD#4 Cont IV abx Pain control Supp care f/u blood cx A total of 31 mins of additional time was spent with the patient and coordination of care and counseling in addition to the face to face time spent with the patient ICD Codes: L02.91 - Cutaneous abscess, unspecified SNOMED: [id number] Subjective Date patient seen: Dec 17, 2016 Time patient seen: 17:52 ROS Limited/Unobtainable: No Allergies: Coded Allergies: No Known Allergies (Unverified , 03/04/16) Subjective s/p I+D of abscess, POD#4, no periop or postop complications. No chest pain or dyspnea, no n/v. Objective Last 24 Hour Vital Signs Date Time Temp Pulse Resp B/P Pulse Ox O2 Delivery O2 Flow Rate FiO2 12/17/16 16:03 97.5 65 18 111/73 99 Room Air 12/17/16 16:00 18 12/17/16 12:00 18 12/17/16 11:56 97.7 57 21 109/79 97 Room Air 12/17/16 09:54 72 21 97 12/17/16 08:07 98.4 72 21 117/75 97 Room Air 12/17/16 08:00 18 12/17/16 04:00 16 12/17/16 04:00 97.2 60 22 104/62 98 Room Air 12/17/16 00:00 18 12/17/16 00:00 97.7 63 18 101/59 98 Room Air 12/16/16 20:00 18 12/16/16 20:00 97.2 75 18 105/69 99 Room Air Intake and Output 12/16/16 12/17/16 19:00 07:00 Intake Total 1460 ml 480 ml Output Total 460 ml 410 ml Balance 1000 ml 70 ml Intake Oral 360 ml 480 ml IV Total 1100 ml Output Urine Total 450 ml 300 ml Drainage Total 0 ml 110 ml Estimated Blood Loss 10 ml # Voids 1 3 # Bowel Movements 1 Height (Feet): 5 Height (Inches): 4.00 Weight (Pounds): 206 Objective General: alert, cooperative, no distress, appears stated age Head: normocephalic, without obvious abnormality, atraumatic Eyes: conjunctivae/corneas clear. PERRL, EOM's intact Throat: lips, mucosa, and tongue normal. MMM Neck: supple, symmetrical, trachea midline, and no JVD Lungs: clear to auscultation bilaterally Heart: regular rate and rhythm, S1, S2 normal, no murmur, click, rub or gallop Abdomen: soft, non-tender, non-distended, bowel sounds normal; no masses or organomegaly Extremities: extremities normal, atraumatic, no cyanosis or edema Pulses: 2+ and symmetric Skin: skin color, texture, turgor normal; no rashes or lesions Neurologic: grossly normal, no focal deficits LEONARDO VASQUEZ Dec 17, 2016 17:52
[2016-12-17 20:00] VITALS: BP 119/72
[2016-12-18] VITALS: BP 117/90
[2016-12-18 04:00] VITALS: BP 113/57
[2016-12-18] MEDS: ceFAZolin sod 1 GM in D5W 55 ML IVP SCH ×3 (05:16→21:57)
[2016-12-18] MEDS ORDERED: Rate Change PCA 1 Each MISC PRN (07:00)
[2016-12-18] MEDS: D5NS 1,000 ML IV SCH (07:27)
[2016-12-18] MEDS ORDERED: PCA HYDROmorphone 1mg/ml 30 ML IV PRN (07:30)
[2016-12-18] MEDS: PCA shift volume MISC SCH ×3 (07:32→23:15)
[2016-12-18 08:00] VITALS: BP 108/68
[2016-12-18] MEDS: Heparin 5000 units/ml inj SUBQ SCH ×2 (09:00→22:17)
[2016-12-18] MEDS: Docusate 100mg cap ORAL SCH ×2 (09:15→21:57)
[2016-12-18 10:23] LABS: BASOPHILS % (AUTO) 1.2 % (0.0-2.0); EOSINOPHILS % (AUTO) 6.4 % (0.0-3.0); LYMPHOCYTES % (AUTO) 26.1 % (20.0-45.0); MEAN CORPUSCULAR HEMOGLOBIN 20.3 PG (27.0-31.0); MEAN CORPUSCULAR VOLUME 67 FL (80-99); MEAN PLATELET VOLUME 8.3 FL (6.5-10.1); MONOCYTES % (AUTO) 11.4 % (1.0-10.0); NEUTROPHILS % (AUTO) 54.8 % (45.0-75.0); PLATELET COUNT 290 K/UL (150-450); RED BLOOD COUNT 4.81 M/UL (4.20-5.40); RED CELL DISTRIBUTION WIDTH 14.7 % (11.6-14.8); WHITE BLOOD COUNT 6.6 K/UL (4.8-10.8)
--- NOTE | 2016-12-18 11:50 | General Progress Note ---
Assessment/Plan Problem List: (1) Abscess of skin and subcutaneous tissue Assessment & Plan: s/p I+D POD#5 Cont IV abx Pain control Supp care f/u blood cx A total of 31 mins of additional time was spent with the patient and coordination of care and counseling in addition to the face to face time spent with the patient ICD Codes: L02.91 - Cutaneous abscess, unspecified SNOMED: [id number] Subjective Date patient seen: Dec 18, 2016 Time patient seen: 11:49 ROS Limited/Unobtainable: No Allergies: Coded Allergies: No Known Allergies (Unverified , 03/04/16) Subjective s/p I+D of abscess, POD#5, no periop or postop complications. No chest pain or dyspnea, no n/v. Objective Last 24 Hour Vital Signs Date Time Temp Pulse Resp B/P Pulse Ox O2 Delivery O2 Flow Rate FiO2 12/18/16 08:00 98.1 68 18 108/68 100 Room Air 12/18/16 08:00 17 12/18/16 04:00 98.4 71 18 113/57 96 Room Air 12/18/16 04:00 16 12/18/16 00:00 97.3 70 18 117/90 98 Room Air 12/18/16 00:00 18 12/17/16 20:00 18 12/17/16 20:00 97.9 71 19 119/72 100 Room Air 12/17/16 16:03 97.5 65 18 111/73 99 Room Air 12/17/16 16:00 18 12/17/16 12:00 18 12/17/16 11:56 97.7 57 21 109/79 97 Room Air Intake and Output 12/17/16 12/18/16 19:00 07:00 Intake Total 720 ml 1190 ml Output Total 3070 ml Balance 720 ml -1880 ml Intake Oral 720 ml 840 ml IV Total 350 ml Output Urine Total 3000 ml Drainage Total 70 ml # Voids 1 Laboratory Tests 12/18/16 09:40: White Blood Count 6.6, Red Blood Count 4.81, Hemoglobin 9.7L, Hematocrit 32.4L, Mean Corpuscular Volume 67L, Mean Corpuscular Hemoglobin 20.3L, Mean Corpuscular Hemoglobin Concent 30.0L, Red Cell Distribution Width 14.7, Platelet Count 290, Mean Platelet Volume 8.3, Neutrophils (%) (Auto) 54.8, Lymphocytes (%) (Auto) 26.1, Monocytes (%) (Auto) 11.4H, Eosinophils (%) (Auto) 6.4H, Basophils (%) (Auto) 1.2 Height (Feet): 5 Height (Inches): 4.00 Weight (Pounds): 206 Objective General: alert, cooperative, no distress, appears stated age Head: normocephalic, without obvious abnormality, atraumatic Eyes: conjunctivae/corneas clear. PERRL, EOM's intact Throat: lips, mucosa, and tongue normal. MMM Neck: supple, symmetrical, trachea midline, and no JVD Lungs: clear to auscultation bilaterally Heart: regular rate and rhythm, S1, S2 normal, no murmur, click, rub or gallop Abdomen: soft, non-tender, non-distended, bowel sounds normal; no masses or organomegaly Extremities: extremities normal, atraumatic, no cyanosis or edema Pulses: 2+ and symmetric Skin: skin color, texture, turgor normal; no rashes or lesions Neurologic: grossly normal, no focal deficits LEONARDO VASQUEZ Dec 18, 2016 11:50
[2016-12-18 12:00] VITALS: BP 127/97
[2016-12-18 16:00] VITALS: BP 122/49
[2016-12-18 20:00] VITALS: BP 108/52
[2016-12-19] VITALS: BP 112/73
[2016-12-19] MEDS: Cephalexin 500mg cap ORAL SCH ×3 (05:41→21:43)
[2016-12-19 08:00] VITALS: BP 115/59
[2016-12-19] MEDS: Heparin 5000 units/ml inj SUBQ SCH ×2 (08:04→20:29)
[2016-12-19] MEDS: Docusate 100mg cap ORAL SCH ×2 (08:04→20:23)
[2016-12-19 12:00] VITALS: BP 126/62
--- NOTE | 2016-12-19 12:05 | General Progress Note ---
Assessment/Plan Problem List: (1) Abscess of skin and subcutaneous tissue Assessment & Plan: s/p I+D POD#6 Cont IV abx Pain control Supp care f/u blood cx A total of 31 mins of additional time was spent with the patient and coordination of care and counseling in addition to the face to face time spent with the patient ICD Codes: L02.91 - Cutaneous abscess, unspecified SNOMED: [id number] Subjective Date patient seen: Dec 19, 2016 Time patient seen: 12:05 ROS Limited/Unobtainable: No Allergies: Coded Allergies: No Known Allergies (Unverified , 03/04/16) Subjective s/p I+D of abscess, POD#6, no periop or postop complications. No chest pain or dyspnea, no n/v. Objective Last 24 Hour Vital Signs Date Time Temp Pulse Resp B/P Pulse Ox O2 Delivery O2 Flow Rate FiO2 12/19/16 08:00 98.2 96 20 115/59 98 Room Air 12/19/16 00:00 97.4 82 18 112/73 98 Room Air 12/18/16 20:00 16 12/18/16 20:00 97.7 94 17 108/52 99 Room Air 12/18/16 16:00 97.2 74 18 122/49 96 Room Air 12/18/16 16:00 19 Intake and Output 12/18/16 12/19/16 19:00 07:00 Intake Total 1020 ml 340 ml Output Total 40 ml 15 ml Balance 980 ml 325 ml Intake Oral 720 ml 340 ml IV Total 300 ml Drainage Total 40 ml 15 ml # Voids 4 6 Height (Feet): 5 Height (Inches): 4.00 Weight (Pounds): 206 Objective General: alert, cooperative, no distress, appears stated age Head: normocephalic, without obvious abnormality, atraumatic Eyes: conjunctivae/corneas clear. PERRL, EOM's intact Throat: lips, mucosa, and tongue normal. MMM Neck: supple, symmetrical, trachea midline, and no JVD Lungs: clear to auscultation bilaterally Heart: regular rate and rhythm, S1, S2 normal, no murmur, click, rub or gallop Abdomen: soft, non-tender, non-distended, bowel sounds normal; no masses or organomegaly Extremities: extremities normal, atraumatic, no cyanosis or edema Pulses: 2+ and symmetric Skin: skin color, texture, turgor normal; no rashes or lesions Neurologic: grossly normal, no focal deficits LEONARDO VASQUEZ Dec 19, 2016 12:05
[2016-12-19 16:17] VITALS: BP 107/62
[2016-12-19 20:00] VITALS: BP 111/74
[2016-12-20] VITALS: BP 109/79
[2016-12-20 04:00] VITALS: BP 106/63
[2016-12-20] MEDS: Cephalexin 500mg cap ORAL SCH (05:07)
[2016-12-20 08:00] VITALS: BP 84/54
[2016-12-20] MEDS: Docusate 100mg cap ORAL SCH (09:04)
[2016-12-20] MEDS: Heparin 5000 units/ml inj SUBQ SCH (09:05)
[2016-12-20] MEDS ORDERED: CEPHALEXIN500 MG ORAL (11:12)
[2016-12-20] MEDS ORDERED: PERCOCET 5-3251 EACH ORAL ×2 (11:13)
[2016-12-20] MEDS ORDERED: ANECREAM5 GM TP (11:16)
--- NOTE | 2016-12-20 11:16 | Discharge Summary ---
Discharge Summary Hospital Course Date of Admission Dec 12, 2016 at 17:13 Date of Discharge Dec 20, 2016 Admitting Diagnosis infected abscesses Reason for Hospitalization: as above TANIA Yoder is a 41 year old female who was admitted on Dec 12, 2016 at 17: 13 for Infected Hidradenitis Consultations Plastic Surgery Procedures See Operative Reports Hospital Course 41 y/o AA female with hx of hydradenitis, presented with acutely infected abscess of the buttocks and groin regions, s/p I+D and flap wound surgery by plastic surgery without periop or postop complications. She was immediately started on IV abx and continued perioperatively. No postop complications. After wound stability, and pain tolerance, she was dced home on PO abx and pain meds. She will f/u with plastic surgery as an outpt next week. Discharge Medications Continued Medications: Alprazolam* (Xanax*) 0.5 Mg Tablet 0.5 MG ORAL, TAB Discontinued Medications: Doxycycline Monohydrate* (Doxycycline Monohydrate*) 100 Mg Capsule 100 MG ORAL TWICE A DAY, #14 CAP 0 Refills Hydrocodone/Acetaminophen (Hydrocodon-Acetaminophn 10-325) 1 Ea Tab 1 TAB ORAL Q6H PRN for For Pain, #40 TAB 0 Refills Discharge Condition Upon Discharge: stable Discharge Disposition Patient was discharged to Home (01) Discharge Diagnoses: (1) Abscess of skin and subcutaneous tissue LEONARDO VASQUEZ Dec 20, 2016 11:16
[2016-12-20] MEDS ORDERED: D5NS 1000ml IV ONE (12:28)
== END 2016-12-20 12:29 | disposition home or self-care (01) | DRG 578 ==
LOC: EMR 16:50 → 3E 17:13 → EDBEDREQ 19:07 → 3E 12-14 15:14
PROC: 0JX60ZZ Transfer Chest Subcutaneous Tissue and Fascia, Open Approach (ICD-10-PCS; 2016-12-13)
PROC: 0JB60ZZ Excision of Chest Subcutaneous Tissue and Fascia, Open Approach (ICD-10-PCS; principal; 2016-12-13 09:00)
PROC: 0JQ60ZZ Repair Chest Subcutaneous Tissue and Fascia, Open Approach (ICD-10-PCS; principal; 2016-12-13 09:00)
PROC: 0H88XZZ Division of Buttock Skin, External Approach (ICD-10-PCS; principal; 2016-12-13 09:00)
PROC: 0JB90ZZ Excision of Buttock Subcutaneous Tissue and Fascia, Open Approach (ICD-10-PCS; principal; 2016-12-13 09:00)
PROC: 0JD60ZZ Extraction of Chest Subcutaneous Tissue and Fascia, Open Approach (ICD-10-PCS; principal; 2016-12-13 09:00)
PROC: 0JX90ZZ Transfer Buttock Subcutaneous Tissue and Fascia, Open Approach (ICD-10-PCS; 2016-12-16)
PROC: 0JX70ZZ Transfer Back Subcutaneous Tissue and Fascia, Open Approach (ICD-10-PCS; 2016-12-16)
DX: L05.01 Pilonidal cyst with abscess (principal); T81.89XA Other complications of procedures, not elsewhere classified, initial encounter; Y83.8 Other surgical procedures as the cause of abnormal reaction of the patient, or of later complication, without mention of misadventure at the time of the procedure; L73.2 Hidradenitis suppurativa
CPT/HCPCS: 36415; 71010; 80048; 80053; 81003; 81025; 82550; 82553; 83605; 84484; 85025; 85610; 85730; 87040; 87070; 87205; 93005; 94003; 94150; J2250; J2405; J2710; S0077

== ENCOUNTER 2016-12-31 23:20 | Inpatient (IN) | payer OTHER, MEDICAID ==
[~2016-12-31] VITALS: Ht 160 cm; Wt 91.6 kg
[~2016-12-31 23:20] MED LIST changes: +ANECREAM5 GM TP; +CEPHALEXIN500 MG ORAL; +PERCOCET 5-3251 EACH ORAL
[2016-12-31] MEDS ORDERED: NKM (23:35)
[2016-12-31] MEDS ORDERED: Oxycodone/Acetaminophen 5-325 ORAL ONE (23:45)
[2017-01-01] MEDS ORDERED: Ampicillin/Sulbactam Sod 3 GM in NS 110 ML IVPB ONE ×2
[2017-01-01] MEDS ORDERED: metroNIDAZOLE 500mg 100 ML IVPB ONE
[2017-01-01] MEDS ORDERED: Unasyn 3gm Inj ONE (00:01)
--- NOTE | 2017-01-01 00:10 | Emergency Room Report ---
History of Present Illness General Chief Complaint: General Complaint Source: Patient Present Illness HPI Patient is a 41-year-old female brought in by self after increased pain to her buttock area. Patient had recent surgical treatment for hidradenitis. Patient was noted to have attempted recent bowel movement and during straining of the surgical wound reopen. The would have been draining some material serous in nature. Patient had not been having any reported fever. She reported taking Percocet for pain Allergies: Coded Allergies: No Known Allergies (Unverified , 03/04/16) Patient History Last Menstrual Period: 12/10/2016 Now: No : 4 Para: 4 Reviewed Nursing Documentation: PMH: Agreed, PSxH: Agreed Nursing Documentation-PMH Hx Cardiac Problems: No Hx Cancer: No Hx Neurological Problems: No Review of Systems All Other Systems: negative except mentioned in HPI Physical Exam Vital Signs Date Time Temp Pulse Resp B/P Pulse Ox O2 Delivery O2 Flow Rate FiO2 12/31/16 23:24 98.2 90 16 128/78 99 Room Air Sp02 EP Interpretation: reviewed, normal General Appearance: normal inspection, well appearing, no apparent distress, alert, GCS 15 Head: atraumatic ENT: normal ENT inspection, hearing grossly normal, normal voice Neck: normal inspection, full range of motion, supple, no bony tend Respiratory: normal inspection, lungs clear, normal breath sounds, no respiratory distress, no retraction, no wheezing Cardiovascular #1: regular rate, rhythm, no edema Gastrointestinal: normal inspection, normal bowel sounds, non tender, soft, no guarding, no hernia Genitourinary: no CVA tenderness Musculoskeletal: normal inspection, back normal, normal range of motion Neurologic: normal inspection, alert, responsive, speech normal Psychiatric: normal inspection, judgement/insight normal, mood/affect normal Skin: no rash, other - open wound to lower buttock area Medical Decision Making Diagnostic Impression: Primary Impression: Wound dehiscence ER Course Patient presented for wound check. Differential diagnosis included was not limited to cellulitis, abscess, wound dehiscence, seroma among others.Because of complexity of patient's case laboratory testing and imaging studies were ordered. Patient was noted to have large area of the surgical site which was noted to be open. The inferior portion of the wound had some serous drainage. The patient was discussed with 's covering physician for inpatient management. Labs Test 12/31/16 23:59 White Blood Count 10.7 K/UL (4.8-10.8) Red Blood Count 5.15 M/UL (4.20-5.40) Hemoglobin 10.7 G/DL (12.0-16.0) Hematocrit 33.7 % (37.0-47.0) Mean Corpuscular Volume 65 FL (80-99) Mean Corpuscular Hemoglobin 20.9 PG (27.0-31.0) Mean Corpuscular Hemoglobin Concent 31.9 G/DL (32.0-36.0) Red Cell Distribution Width 14.2 % (11.6-14.8) Platelet Count 390 K/UL (150-450) Mean Platelet Volume 9.0 FL (6.5-10.1) Neutrophils (%) (Auto) 53.2 % (45.0-75.0) Lymphocytes (%) (Auto) 32.2 % (20.0-45.0) Monocytes (%) (Auto) 7.1 % (1.0-10.0) Eosinophils (%) (Auto) 5.6 % (0.0-3.0) Basophils (%) (Auto) 2.0 % (0.0-2.0) Prothrombin Time 10.4 SEC (9.30-11.50) Prothromb Time International Ratio 1.0 (0.9-1.1) Activated Partial Thromboplast Time 27 SEC (23-33) Last Vital Signs Date Time Temp Pulse Resp B/P Pulse Ox O2 Delivery O2 Flow Rate FiO2 12/31/16 23:24 98.2 90 16 128/78 99 Room Air Status: unchanged Disposition: ADMITTED INPATIENT Condition: Sabas Ash Jan 01, 2017 00:10
[2017-01-01 00:22] LABS: EOSINOPHILS % (AUTO) 5.6 % (0.0-3.0); LYMPHOCYTES % (AUTO) 32.2 % (20.0-45.0); MEAN CORPUSCULAR HEMOGLOBIN 20.9 PG (27.0-31.0); MEAN CORPUSCULAR HGB CONC 31.9 G/DL (32.0-36.0); MEAN CORPUSCULAR VOLUME 65 FL (80-99); MONOCYTES % (AUTO) 7.1 % (1.0-10.0); NEUTROPHILS % (AUTO) 53.2 % (45.0-75.0); PLATELET COUNT 390 K/UL (150-450); RED BLOOD COUNT 5.15 M/UL (4.20-5.40); RED CELL DISTRIBUTION WIDTH 14.2 % (11.6-14.8); WHITE BLOOD COUNT 10.7 K/UL (4.8-10.8)
[2017-01-01 00:34] LABS: PROTHROMBIN TIME 10.4 SEC (9.30-11.50)
[2017-01-01 00:37] VITALS: BP 126/70
[2017-01-01 00:39] LABS: ALANINE AMINOTRANSFERASE 10 U/L (3-33); ALBUMIN/GLOBULIN RATIO 1.1 (1.0-2.7); ANION GAP 15 (5-15); ASPARTATE AMINO TRANSFERASE 13 U/L (5-40); CALCIUM 8.9 mg/dL (8.6-10.2); CARBON DIOXIDE 24 mEQ/L (20-30); CHLORIDE 97 mEQ/L (98-107); CREATININE 0.8 mg/dL (0.5-0.9); GLOMERULAR FILTRATION RATE > 60 mL/min (>60); HEMOLYSIS 4; POTASSIUM 3.9 mEQ/L (3.4-4.9); SODIUM 136 mEQ/L (135-145); TOTAL PROTEIN 7.5 g/dL (6.6-8.7)
[2017-01-01 02:00] VITALS: BP 125/65
[2017-01-01 04:00] VITALS: BP 113/76
[2017-01-01] MEDS ORDERED: Unasyn 1.5gm Vial ONE (04:44)
[2017-01-01] MEDS: Ampicillin/Sulbactam Sod 1.5 GM in NS 55 ML IVPB SCH ×3 (05:09→17:58)
[2017-01-01 07:36] LABS: BASOPHILS % (AUTO) 1.1 % (0.0-2.0); EOSINOPHILS % (AUTO) 5.7 % (0.0-3.0); LYMPHOCYTES % (AUTO) 29.9 % (20.0-45.0); MEAN CORPUSCULAR HEMOGLOBIN 20.5 PG (27.0-31.0); MEAN CORPUSCULAR HGB CONC 30.9 G/DL (32.0-36.0); MEAN CORPUSCULAR VOLUME 66 FL (80-99); MEAN PLATELET VOLUME 8.9 FL (6.5-10.1); MONOCYTES % (AUTO) 8.5 % (1.0-10.0); NEUTROPHILS % (AUTO) 54.8 % (45.0-75.0); PLATELET COUNT 369 K/UL (150-450); RED BLOOD COUNT 5.09 M/UL (4.20-5.40); RED CELL DISTRIBUTION WIDTH 14.6 % (11.6-14.8)
[2017-01-01 07:50] LABS: ANION GAP 15 (5-15); CALCIUM 8.6 mg/dL (8.6-10.2); CARBON DIOXIDE 22 mEQ/L (20-30); CHLORIDE 99 mEQ/L (98-107); CREATININE 0.7 mg/dL (0.5-0.9); GLOMERULAR FILTRATION RATE > 60 mL/min (>60); HEMOLYSIS 0; POTASSIUM 3.8 mEQ/L (3.4-4.9); SODIUM 136 mEQ/L (135-145)
[2017-01-01 08:43] VITALS: BP 101/52
[2017-01-01] MEDS: Docusate 100mg cap ORAL SCH ×2 (08:59→17:59)
[2017-01-01] MEDS: Norco 10mg/325mg tab ORAL PRN ×2 (09:00→20:01)
[2017-01-01 12:00] VITALS: BP 127/68
--- NOTE | 2017-01-01 15:16 | Diagnostic Imaging Report ---
Indication: Chest Pain Comparison: 12/12/69 A single view chest radiograph was obtained. Findings: Cardiomediastinal appearance is within normal limits for age. Pulmonary vascularity is appropriate. The diaphragmatic contour is smooth and costophrenic angles are sharp. No pleural effusions are identified. The bones are unremarkable. Impression: No acute findings
[2017-01-01] MEDS: Norco 5mg/325mg tab ORAL PRN (15:56)
[2017-01-01 20:00] VITALS: BP 112/66
[2017-01-02] VITALS (12 sets, daily range): BP systolic 100–118; BP diastolic 59–88
[2017-01-02] MEDS: Ampicillin/Sulbactam Sod 1.5 GM in NS 55 ML IVPB SCH ×4 (01:41→17:39)
[2017-01-02] MEDS: Norco 5mg/325mg tab ORAL PRN (01:41)
[2017-01-02 07:05] LABS: APPEARANCE,URINE CLEAR; KETONES,URINE NEGATIVE (NEGATIVE); LEUKOCYTE ESTERASE ,URINE NEGATIVE (NEGATIVE); NITRITE,URINE NEGATIVE (NEGATIVE); PH,URINE 7 (4.5-8.0); PROTEIN,URINE NEGATIVE (NEGATIVE); UROBILINOGEN,URINE NORMAL MG/DL (0.0-1.0)
[2017-01-02 07:29] LABS: BACTERIA,URINE OCCASIONAL /HPF; RBC,URINE 0-2 /HPF (0 - 2); SQUAMOUS EPITHELIAL CELL,UR OCCASIONAL /LPF (NONE/OCC); WBC,URINE 0-2 /HPF (0 - 2)
[2017-01-02] MEDS: Docusate 100mg cap ORAL SCH ×2 (08:39→17:38)
--- NOTE | 2017-01-02 09:49 | Pre-Procedure Note/Attestation ---
Pre-Procedure Note/Attestation Complete Prior to Procedure Planned Procedure: not applicable Procedure Narrative: Debridement of lower back wound with flap closure and wound vac placement Attestation I attest that I discussed the nature of the procedure; its benefits; risks and complications; and alternatives (and the risks and benefits of such alternatives ), prior to the procedure, with the patient (or the patient's legal advertising account representative). I attest that, if there was a reasonable possibility of needing a blood transfusion, the patient (or the patient's legal advertising account representative) was given the [facility] standardized written summary, pursuant to the Bhaskar Odalys Blood Safety Act ([place] Health and Safety Code # 1645, as amended). I attest that I re-evaluated the patient just prior to the surgery and that there has been no change in the patient's H&P, except as documented below: WANDER CHAUHAN Jan 02, 2017 09:49
--- NOTE | 2017-01-02 09:50 | Operative Note - PDOC ---
Operative Note Operative Note Pre-op Diagnosis: Open lower back wound Procedure: Debridement of lower back wound with partial flap closure and wound vac placement Post-op Diagnosis: same as pre-op Surgeon: Luther Metal Ceiling Hanger: Terrell Anesthesia: general Specimen: none Complications: none Condition: stable Estimated Blood Loss: minimal Drains: wound vac Implant(s) used?: No WANDER CHAUHAN Jan 02, 2017 09:50
[2017-01-02] MEDS ORDERED: Bacitracin 50000 Units Vial ONE (09:54)
[2017-01-02] MEDS ORDERED: Lidocaine 1% 10mg/ml/Epi 0.005mg/ml 30ml vial INJ ONE (09:54)
[2017-01-02] MEDS ORDERED: Glycopyrrolate 0.2mg/ml 1ml Vial ONE (10:00)
[2017-01-02] MEDS ORDERED: Succinylcholine 20mg/ml 10ml vial ONE (10:00)
[2017-01-02] MEDS ORDERED: Zemuron 50mg/5ml Inj IV ONE (10:00)
[2017-01-02] MEDS ORDERED: NS Irrig 1000ml ONE (10:00)
[2017-01-02] MEDS ORDERED: Morphine Sulfate 10mg/ml Inj ONE (10:00)
[2017-01-02] MEDS ORDERED: Neostigmine 1mg/ml 10ml Inj ONE (10:00)
[2017-01-02] MEDS ORDERED: Ketorolac 30mg Inj ONE (10:00)
[2017-01-02] MEDS ORDERED: Sterile Water Irrig 1000ml IRRIG ONE (10:00)
[2017-01-02] MEDS ORDERED: Propofol 10mg/ml 20ml IV ONE (10:00)
[2017-01-02] MEDS ORDERED: Midazolam 2mg/2ml Inj ONE (10:00)
[2017-01-02] MEDS ORDERED: LR 1000ml ONE (10:00)
[2017-01-02] MEDS ORDERED: fentaNYL 100 mcg/2 mL IV ONE (10:00)
[2017-01-02] MEDS ORDERED: LR 1000ml 1,000 ML IVLG SCH (11:04)
--- NOTE | 2017-01-02 11:04 | Anethesia Preoperative Eval ---
Anesthesia Pre-op PMH/ROS General Date of Evaluation: Jan 02, 2017 Time of Evaluation: 09:56 Anesthesiologist: Ovidio ASA Score: ASA 2 Mallampati Score Class I : Soft palate, uvula, fauces, pillars visible Class II: Soft palate, uvula, fauces visible Class III: Soft palate, base of uvula visible Class IV: Only hard plate visible Mallampati Classification: Class II Surgeon: Luther Diagnosis: Wound dehiesence Surgical Procedure: Revision of lower back wound Anesthesia History: none Family History: no anesthesia problems Allergies: Coded Allergies: No Known Allergies (Unverified , 03/04/16) Medications: see eMAR Past Medical History Cardiovascular: Denies: CAD, HTN, PR, arrhythmia, other, valve dz Pulmonary: Reports: DARLENE, Denies: COPD, asthma, other Gastrointestinal/Genitourinary: Reports: GERD Neurologic/Psychiatric: Reports: depression/anxiety, Denies: CVA, TIA, dementia, other Endocrine: Denies: DM, hypothyroidism, other, steroids HEENT: Denies: EGEGIK (L), EGEGIK (R), cataract (L), cataract (R), glaucoma, other Hematology/Immune: Reports: anemia - mild, Denies: DVT, bleeding disorder, other Musculoskeletal/Integumentary: Reports: other - recurrent hydradenitis Other: obesity, other PMH Narrative: as above PSxH Narrative: multiple Sx for HS treatment Anesthesia Pre-op Phys. Exam Physician Exam Last Vital Signs Date Time Temp Pulse Resp B/P Pulse Ox O2 Delivery O2 Flow Rate FiO2 01/02/17 04:00 97.3 71 20 100/72 98 Room Air Constitutional: NAD Neurologic: CN 2-12 intact Cardiovascular: RRR, no M/R/G Respiratory: CTA Gastrointestinal: S/NT/ND Airway Exam Mallampati Score: Class II MO: full Neck: flexible ROM: full Teeth: intact Dentures: no lower, no upper Anesthesia Pre-op A/P Labs see chart Urine Test Test 01/02/17 02:00 Urine HCG, Qualitative Negative Risk Assessment & Plan Assessment: ASA 2 Plan: GA with ETT prone position Status Change Before Surgery: No Pre-Antibiotics Drug: Ancef 1gr. Given Within 1 Hr of Incision: Yes Time Given: 10:16 YOGI MANLEY M.D. Jan 02, 2017 11:04
[2017-01-02] MEDS ORDERED: Ketorolac 30mg Inj IV PRN (11:15)
[2017-01-02] MEDS ORDERED: Midazolam 2mg/2ml Inj IVP PRN (11:15)
[2017-01-02] MEDS ORDERED: DiphenhydrAMINE 50mg/ml Inj IVP PRN ×2 (11:15→13:00)
[2017-01-02] MEDS ORDERED: Hydromorphone 0.5mg/0.5ml inj IVP PRN (11:15)
[2017-01-02] MEDS ORDERED: fentaNYL 100 mcg/2 mL IV PRN (11:15)
[2017-01-02] MEDS ORDERED: Meperidine 25mg/ml Inj IV PRN (11:15)
[2017-01-02] MEDS ORDERED: Metoclopramide 10mg/2ml Inj IVP PRN ×2 (11:15→17:15)
--- NOTE | 2017-01-02 11:44 | Immediate Post-Op Evaluation ---
Immediate Post-Op Evalulation Immediate Post-Op Evalulation Procedure: Revision and closure of lower back wound Date of Evaluation: Jan 02, 2017 Time of Evaluation: 11:43 IV Fluids: 800 Blood Products: none Estimated Blood Loss: 50 Urinary Output: none Blood Pressure Systolic: 113 Blood Pressure Diastolic: 70 Pulse Rate: 75 Respiratory Rate: 20 O2 Sat by Pulse Oximetry: 99 Temperature (Fahrenheit): 98.4 Pain Score (1-10): 1 Nausea: No Vomiting: No Complications none Patient Status: reacts, patent, extubated, none Hydration Status: adequate YOGI MANLEY M.D. Jan 02, 2017 11:44
[2017-01-02] MEDS: PCA HYDROmorphone 1mg/ml 30 ML IV PRN (12:09)
--- NOTE | 2017-01-02 12:16 | History and Physical ---
History of Present Illness General Date patient seen: Jan 01, 2017 Time patient seen: 13:30 Reason for Hospitalization: wound dehiscence Present Illness HPI This patient was seen 01/01/2017 at 1330, H+P for that visit is being put in now. 41 y/o AA female with hx of hidradenitis, s/p multiple I+D and flap surgeries recently, dced home last month, returns to the ER with wound dehiscence in her buttocks area. She was seen by her surgeon and was sent to ED to be admitted for this. There have been no changes to her medical condition, no new meds since her last discharge. Denies fevers/chills, some pain but currently well controlled in the buttocks area Allergies: Coded Allergies: No Known Allergies (Unverified , 03/04/16) Medication History Scheduled Cephalexin* (Keflex*), 500 MG ORAL QID, (Reported) No Known Medications* (NKM - No Known Medications*), 0 ., (Reported) Scheduled PRN Lidocaine (Anecream), 1 GM TP BID PRN for prn, (Reported) Oxycodone/Acetaminophen 5-325* (Percocet 5-325 Mg Tablet*), 1 TAB ORAL Q4H PRN for For Pain, (Reported) Oxycodone/Acetaminophen 5-325* (Percocet 5-325 Mg Tablet*), 2 TAB ORAL Q6H PRN for For Pain, (Reported) Miscellaneous Medications Alprazolam* (Xanax*), 0.5 MG ORAL, (Reported) Patient History History Provided By: Patient Healthcare decision maker Resuscitation status Full Code Advanced Directive on File Family History Family History: Patient reports no known family medical history. Social History Social History: (1) No significant social history Review of Systems ROS Narrative CONSTITUTIONAL: No weight loss, fever, chills, weakness or fatigue. HEENT: Eyes: No visual loss, blurred vision, double vision or yellow sclerae. Ears, Nose, Throat: No hearing loss, sneezing, congestion, runny nose or sore throat. SKIN: No rash or itching. CARDIOVASCULAR: No chest pain, chest pressure or chest discomfort. No palpitations or edema. RESPIRATORY: No shortness of breath, cough or sputum. GASTROINTESTINAL: No anorexia, nausea, vomiting or diarrhea. No abdominal pain or blood. NEUROLOGICAL: No headache, dizziness, syncope, paralysis, ataxia, numbness or tingling in the extremities. No change in bowel or bladder control. MUSCULOSKELETAL: No muscle, back pain, joint pain or stiffness, +buttocks pain HEMATOLOGIC: No anemia, bleeding or bruising. LYMPHATICS: No enlarged nodes. No history of splenectomy. PSYCHIATRIC: No history of depression or anxiety. ENDOCRINOLOGIC: No reports of sweating, cold or heat intolerance. No polyuria or polydipsia. ALLERGIES: No history of asthma, hives, eczema or rhinitis. Physical Exam Physical Exam Narrative General: alert, cooperative, no distress, appears stated age Head: normocephalic, without obvious abnormality, atraumatic Eyes: conjunctivae/corneas clear. PERRL, EOM's intact Throat: lips, mucosa, and tongue normal. MMM Neck: supple, symmetrical, trachea midline, and no JVD Lungs: clear to auscultation bilaterally Heart: regular rate and rhythm, S1, S2 normal, no murmur, click, rub or gallop Abdomen: soft, non-tender, non-distended, bowel sounds normal; no masses or organomegaly Extremities: extremities normal, atraumatic, no cyanosis or edema- area on buttocks of wound dehiscence, no erythema/rubor/tenderness Pulses: 2+ and symmetric Skin: skin color, texture, turgor normal; no rashes or lesions Neurologic: grossly normal, no focal deficits Last 24 Hour Vital Signs Date Time Temp Pulse Resp B/P Pulse Ox O2 Delivery O2 Flow Rate FiO2 01/02/17 12:00 62 12 108/68 Nasal Cannula 3.0 01/02/17 11:48 63 15 113/65 Simple Mask 6.0 01/02/17 11:44 75 20 99 01/02/17 11:43 77 17 113/70 100 Simple Mask 6.0 01/02/17 11:38 98.4 107 30 118/78 97 Simple Mask 6.0 01/02/17 08:00 97.0 69 20 109/88 99 Room Air 01/02/17 04:00 97.3 71 20 100/72 98 Room Air 01/02/17 00:00 97.2 83 21 117/73 97 Room Air 01/01/17 21:00 99.0 01/01/17 20:00 97.7 85 16 112/66 99 Room Air 01/01/17 18:06 99.0 Intake and Output 01/01/17 01/02/17 19:00 07:00 Intake Total 470 ml 450 ml Balance 470 ml 450 ml Intake Oral 360 ml 240 ml IV Total 110 ml 210 ml # Voids 2 6 # Bowel Movements 1 Laboratory Tests Test 01/02/17 02:00 Urine Color Pale yellow Urine Appearance Clear Urine pH 7 (4.5-8.0) Urine Specific [place] 1.005 (1.005-1.035) Urine Protein Negative (NEGATIVE) Urine Glucose (UA) Negative (NEGATIVE) Urine Ketones Negative (NEGATIVE) Urine Occult Blood Negative (NEGATIVE) Urine Nitrite Negative (NEGATIVE) Urine Bilirubin Negative (NEGATIVE) Urine Urobilinogen Normal MG/DL (0.0-1.0) Urine Leukocyte Esterase Negative (NEGATIVE) Urine RBC 0-2 /HPF (0 - 2) Urine WBC 0-2 /HPF (0 - 2) Urine Squamous Epithelial Cells Occasional /LPF Urine Bacteria Occasional /HPF (NONE) Urine HCG, Qualitative Negative Height (Feet): 5 Height (Inches): 3.00 Weight (Pounds): 202 Medications Current Medications Medications (Trade) Dose Ordered Sig/Chuyita Route PRN Reason Start Time Stop Time Status Last Admin Dose Admin Acetaminophen (Tylenol) 650 mg Q4H PRN ORAL FEVER 01/02/17 10:00 02/01/17 09:59 UNV Acetaminophen/ Hydrocodone Bitart 1 ea 1 ea Q6H PRN ORAL Severe Pain (Pain Scale 7-10) 01/01/17 01:30 01/08/17 01:29 01/01/17 20:01 Acetaminophen/ Hydrocodone Bitart ([place] 5/325) 1 tab Q6H PRN ORAL Moderate Pain (Pain Scale 4-6) 01/01/17 01:30 01/08/17 01:29 01/02/17 01:41 Ampicillin Sodium/ Sulbactam Sodium 1.5 gm/Sodium Chloride 55 ml @ 110 mls/hr Q6HR IVPB 01/01/17 06:00 01/08/17 05:59 01/02/17 06:00 Dextrose/Sodium Chloride (D5ns) 1,000 ml @ 50 mls/hr Q20H IV 01/02/17 00:00 02/01/17 00:00 01/02/17 00:00 Diphenhydramine HCl (Benadryl) 25 mg Q15M PRN IVP Itching 01/02/17 11:15 01/02/17 15:00 Diphenhydramine HCl 12.5 mg 12.5 mg Q6H PRN IVP Itching/Pruritis 01/02/17 10:00 02/01/17 09:59 UNV Docusate Sodium (Colace) 100 mg TWICE A DAY ORAL 01/01/17 09:00 01/31/17 08:59 01/01/17 17:59 Fentanyl Citrate (Sublimaze 100 mcg/2 mL) 50 mcg Q10M PRN IV Moderate Pain (Pain Scale 4-6) 01/02/17 11:15 01/02/17 15:00 Heparin Sodium (Porcine) (Heparin 5000 units/ml) 5,000 units EVERY 12 HOURS SUBQ 01/02/17 21:00 02/01/17 20:59 UNV Hydromorphone HCl (Dilaudid) 0.5 mg Q15M PRN IVP Severe Pain (Pain Scale 7-10) 01/02/17 11:15 01/02/17 15:00 01/02/17 12:00 Hydromorphone HCl (Dilaudid) 2 mg Q3H PRN SUBQ Severe Pain (Pain Scale 7-10) 01/02/17 12:15 01/04/17 12:14 Hydromorphone HCl (Dilaudid) 2 mg Q4H PRN IVP Moderate Pain (Pain Scale 4-6) 01/02/17 12:30 01/09/17 12:29 Hydromorphone HCl (LAWN CARE SPECIALIST Dilaudid) 30 ml @ 0 mls/hr Q24H PRN IV For Pain 01/02/17 12:30 01/04/17 12:29 Ketorolac Tromethamine (Toradol 30mg) 30 mg Q1H PRN IV Severe Breakthru Pain (>7) 01/02/17 11:15 01/02/17 15:00 Meperidine HCl (Demerol) 50 mg Q15M PRN IV Shivering 01/02/17 11:15 01/02/17 15:00 Metoclopramide HCl (Reglan) 10 mg Q1H PRN IVP Nausea & Vomiting 01/02/17 11:15 3/9/17 15:00 Midazolam HCl (Versed 2mg/2ml vial) 1 mg Q15M PRN IVP For Anxiety 01/02/17 11:15 01/02/17 15:00 Miscellaneous Medication (LAWN CARE SPECIALIST Rate Change) 1 ea DAILY PRN MISC rate change 01/02/17 12:30 01/04/17 12:29 Miscellaneous Medication (LAWN CARE SPECIALIST shift volume) 1 ea Q8HR@07,15,23 MISC 01/02/17 15:00 01/04/17 14:59 Ondansetron HCl (Zofran) 4 mg Q6H PRN IVP Nausea & Vomiting 01/02/17 10:00 02/01/17 09:59 UNV Assessment/Plan Problem List: (1) Wound dehiscence Assessment & Plan: Admit to inpatient Check EKG/CXR Cont IV abx f/u cultures Plastic surgery consult If patient is required to have surgery, based on the patient's medical history, and other available ancillary data, the patient is a LOW risk for an INTERMEDIATE risk procedure. Per the most recent ACC/AHA guidelines, the patient does not need any further cardiopulmonary testing prior to the procedure and there do not appear to be any clear medical contraindications to proceeding with the proposed procedure. A total of 31 mins of time was spent on coordination/counseling, in addition to the time spent on the face to face visit ICD Codes: T81.30XA - Disruption of wound, unspecified, initial encounter SNOMED: 303779910 LEONARDO VASQUEZ Jan 02, 2017 12:16
[2017-01-02] MEDS ORDERED: Rate Change PCA 1 Each MISC PRN (12:30)
[2017-01-02] MEDS: PCA shift volume MISC SCH (15:00)
--- NOTE | 2017-01-02 17:18 | Operative Note - Dictated ---
DATE OF OPERATION: 01/02/2017 PREOPERATIVE DIAGNOSIS: Lower back wound dehiscence. POSTOPERATIVE DIAGNOSIS: Lower back wound dehiscence. PROCEDURE: 1. Exploration of lower back wound. 2. Debridement of lower back wound. 3. Re-elevation of left gluteal rotation flap. 4. Re-elevation of right gluteal rotation flap. 5. Re-elevation of lower posterior trunk flap. SURGEON: Remy Sloan M.D. CAMPUS DEAN: Chastity Tejada M.D. ANESTHESIA: General. COMPLICATIONS: None. DRAINS: A wound VAC. ESTIMATED BLOOD LOSS: Minimal. DISPOSITION: Stable to the recovery room. INDICATIONS FOR SURGERY: This is a 41-year-old female, who is now two weeks postoperative from debridement of lower back wound and flap closure, who had been doing well until about one week ago when she noticed that the wound started to have early areas of opening with progressive dehiscence, which was becoming difficult for her to manage and causing pain and discomfort. She presented to the emergency room last night and I evaluated the patient and felt that she would be appropriate candidate for definitive wound debridement and partial wound closure. She understood the risks and benefits of surgery and agreed to proceed. DETAILS OF THE OPERATION: The patient was brought to the operating room and laid in the prone position on the operating table. Her lower back was prepped and draped in a sterile and usual fashion. We first began by marking out on either rotational gluteal flap and additional 1.5 centimeter back cut that would be necessary to re-advance the flap for closure. Once these jimenez were made, we began by releasing all the old sutures and debrided all the skin edges as well as the wound margins and the wound bed. We have explored the wound. We did not encounter any purulent material. Once the debridement was completed, hemostasis was achieved and pulse lavage irrigation was used. Following the markings that were made for the back cuts of the rotational flap, a #15 blade was then used to make the back cuts and the rotational flaps both on the right and the left were both re-elevated and the flaps were Re mobilized both being based off of the corresponding inferior gluteal artery branches. With both flaps fully mobilized, we were then re-raised the posterior trunk flap that had been previously raised based off of perforators of the lumbar arteries. With the flap fully mobilized at this point, we decided that given the likelihood of there being a significant bacterial colonization despite the debridement that will be not prudent to definitively close the wound, as such the flaps were re-advanced superiorly and co-apted them to the lower posterior trunk flap, which allowed for closure of the superior aspect of the wound, however, the central portion was left open and covered with a wound VAC. PLAN: The plan will be to bring the patient back to the operating room for wound VAC change in three to four days, at which point in time, the wound VAC will be changed and further closure of the wound will be performed. Remy Sloan M.D. DR: DELIA JOB#: [id number] CC: ZELDA
[2017-01-02] MEDS ORDERED: D5 1/2NS 1000ml IV ONE (17:45)
--- NOTE | 2017-01-02 17:56 | General Progress Note ---
Assessment/Plan Problem List: (1) Wound dehiscence Assessment & Plan: s/p surgery for wound dehiscence POD#0 Cont IV abx f/u cultures Wound care per Plastic surgery DVT ppx Pain control Supp care A total of 31 mins of time was spent on coordination/counseling, in addition to the time spent on the face to face visit ICD Codes: T81.30XA - Disruption of wound, unspecified, initial encounter SNOMED: 901260731 Subjective Date patient seen: Jan 02, 2017 Time patient seen: 17:54 ROS Limited/Unobtainable: No Allergies: Coded Allergies: No Known Allergies (Unverified , 03/04/16) Subjective s/p surgery for wound dehiscence earlier today, no periop or postop complications. No chest pain or dyspnea, some nausea, no vomiting, postop pain well controlled. Objective Last 24 Hour Vital Signs Date Time Temp Pulse Resp B/P Pulse Ox O2 Delivery O2 Flow Rate FiO2 01/02/17 16:03 97.3 77 19 102/66 100 Nasal Cannula 3.0 01/02/17 14:03 16 01/02/17 13:33 16 01/02/17 13:23 97.9 83 18 109/59 97 Room Air 01/02/17 13:03 16 01/02/17 12:48 16 01/02/17 12:33 16 01/02/17 12:30 98.5 01/02/17 12:30 98.5 01/02/17 12:30 98.6 65 12 110/62 99 Nasal Cannula 3.0 01/02/17 12:18 16 01/02/17 12:15 62 12 108/65 99 Nasal Cannula 3.0 01/02/17 12:09 12 01/02/17 12:00 62 12 108/68 Nasal Cannula 3.0 01/02/17 11:48 63 15 113/65 Simple Mask 6.0 01/02/17 11:44 75 20 99 01/02/17 11:43 77 17 113/70 100 Simple Mask 6.0 01/02/17 11:38 98.4 107 30 118/78 97 Simple Mask 6.0 01/02/17 08:00 97.0 69 20 109/88 99 Room Air 01/02/17 04:00 97.3 71 20 100/72 98 Room Air 01/02/17 00:00 97.2 83 21 117/73 97 Room Air 01/01/17 21:00 99.0 01/01/17 20:00 97.7 85 16 112/66 99 Room Air 01/01/17 18:06 99.0 Intake and Output 01/01/17 01/02/17 19:00 07:00 Intake Total 470 ml 450 ml Balance 470 ml 450 ml Intake Oral 360 ml 240 ml IV Total 110 ml 210 ml # Voids 2 6 # Bowel Movements 1 Laboratory Tests 01/02/17 02:00: Urine Color Pale yellow, Urine Appearance Clear, Urine pH 7, Urine Specific [place] 1.005, Urine Protein Negative, Urine Glucose (UA) Negative, Urine Ketones Negative, Urine Occult Blood Negative, Urine Nitrite Negative, Urine Bilirubin Negative, Urine Urobilinogen Normal, Urine Leukocyte Esterase Negative , Urine RBC 0-2, Urine WBC 0-2, Urine Squamous Epithelial Cells Occasional, Urine Bacteria Occasional, Urine HCG, Qualitative Negative Height (Feet): 5 Height (Inches): 3.00 Weight (Pounds): 202 Objective General: alert, cooperative, no distress, appears stated age Head: normocephalic, without obvious abnormality, atraumatic Eyes: conjunctivae/corneas clear. PERRL, EOM's intact Throat: lips, mucosa, and tongue normal. MMM Neck: supple, symmetrical, trachea midline, and no JVD Lungs: clear to auscultation bilaterally Heart: regular rate and rhythm, S1, S2 normal, no murmur, click, rub or gallop Abdomen: soft, non-tender, non-distended, bowel sounds normal; no masses or organomegaly Extremities: extremities normal, atraumatic, no cyanosis or edema, +drains in buttocks region Pulses: 2+ and symmetric Skin: skin color, texture, turgor normal; no rashes or lesions Neurologic: grossly normal, no focal deficits LEONARDO VASQUEZ Jan 02, 2017 17:56
[2017-01-02] MEDS ORDERED: D5 1/2NS 500 ML IV SCH (18:00)
[2017-01-02] MEDS: D5NS 1,000 ML IV SCH ×2 (20:37)
[2017-01-03] VITALS: BP 104/65
[2017-01-03] MEDS: PCA shift volume MISC SCH ×4 (00:06→23:00)
[2017-01-03] MEDS: Ampicillin/Sulbactam Sod 1.5 GM in NS 55 ML IVPB SCH ×4 (00:44→17:52)
[2017-01-03 04:00] VITALS: BP 118/76
[2017-01-03 08:29] VITALS: BP 102/58
[2017-01-03] MEDS: Docusate 100mg cap ORAL SCH (09:20)
[2017-01-03] MEDS: Heparin 5000 units/ml inj SUBQ SCH ×2 (09:24→22:49)
--- NOTE | 2017-01-03 09:51 | 48 Hour Post Anesthesia Eval ---
Post Anesthesia Evaluation Procedure: Revision and closure of lower back wound Date of Evaluation: Jan 03, 2017 Time of Evaluation: 09:50 Blood Pressure Systolic: 136 0: 52 Pulse Rate: 74 Respiratory Rate: 20 Temperature (Fahrenheit): 97.2 O2 Sat by Pulse Oximetry: 98 Airway: patent Nausea: No Vomiting: No Pain Intensity: 2 Hydration Status: adequate Cardiopulmonary Status: stable Mental Status/LOC: patient returned to baseline Follow-up Care/Observations: n/a Post-Anesthesia Complications: none Follow-up care needed: N/A YOGI MANLEY M.D. Jan 03, 2017 09:51
[2017-01-03 11:59] VITALS: BP 92/58
[2017-01-03] MEDS: PCA HYDROmorphone 1mg/ml 30 ML IV PRN (13:16)
[2017-01-03 16:00] VITALS: BP 98/61
--- NOTE | 2017-01-03 16:38 | General Progress Note ---
Assessment/Plan Problem List: (1) Wound dehiscence Assessment & Plan: s/p surgery for wound dehiscence POD#1 Cont IV abx f/u cultures Wound care per Plastic surgery DVT ppx Pain control Supp care A total of 31 mins of time was spent on coordination/counseling, in addition to the time spent on the face to face visit ICD Codes: T81.30XA - Disruption of wound, unspecified, initial encounter SNOMED: [id number] Subjective Date patient seen: Jan 03, 2017 Time patient seen: 16:38 ROS Limited/Unobtainable: No Allergies: Coded Allergies: No Known Allergies (Unverified , 03/04/16) Subjective s/p surgery for wound dehiscence POD#1, no periop or postop complications. No chest pain or dyspnea, some nausea, no vomiting, postop pain well controlled. Objective Last 24 Hour Vital Signs Date Time Temp Pulse Resp B/P Pulse Ox O2 Delivery O2 Flow Rate FiO2 01/03/17 13:46 97.5 01/03/17 13:18 18 01/03/17 13:18 18 01/03/17 12:03 18 01/03/17 11:59 97.5 80 20 92/58 97 Room Air 01/03/17 09:51 74 20 98 01/03/17 08:29 97.7 74 18 102/58 99 Room Air 01/03/17 08:00 18 01/03/17 04:00 97.5 77 18 118/76 95 Room Air 01/03/17 04:00 18 01/03/17 00:00 97.7 78 18 104/65 98 Room Air 01/03/17 00:00 18 01/02/17 20:37 97.5 79 18 110/68 97 Room Air 01/02/17 20:00 16 Intake and Output 01/02/17 01/03/17 19:00 07:00 Intake Total 2010 ml 740 ml Output Total 50 ml 200 ml Balance 1960 ml 540 ml Intake Oral 800 ml 740 ml IV Total 1210 ml Emesis 200 ml Drainage Total 0 ml Estimated Blood Loss 50 ml # Voids 3 # Bowel Movements 1 Height (Feet): 5 Height (Inches): 3.00 Weight (Pounds): 202 Objective General: alert, cooperative, no distress, appears stated age Head: normocephalic, without obvious abnormality, atraumatic Eyes: conjunctivae/corneas clear. PERRL, EOM's intact Throat: lips, mucosa, and tongue normal. MMM Neck: supple, symmetrical, trachea midline, and no JVD Lungs: clear to auscultation bilaterally Heart: regular rate and rhythm, S1, S2 normal, no murmur, click, rub or gallop Abdomen: soft, non-tender, non-distended, bowel sounds normal; no masses or organomegaly Extremities: extremities normal, atraumatic, no cyanosis or edema, +drains in buttocks region Pulses: 2+ and symmetric Skin: skin color, texture, turgor normal; no rashes or lesions Neurologic: grossly normal, no focal deficits LEONARDO VASQUEZ Jan 03, 2017 16:38
[2017-01-03] MEDS: D5NS 1,000 ML IV SCH (17:51)
[2017-01-03] MEDS: Docusate 100mg tablet ORAL SCH (17:52)
[2017-01-03 20:00] VITALS: BP 99/52
[2017-01-04] VITALS: BP 122/78
[2017-01-04] MEDS: Ampicillin/Sulbactam Sod 1.5 GM in NS 55 ML IVPB SCH ×5 (01:50→23:30)
[2017-01-04 04:00] VITALS: BP 93/52
[2017-01-04] MEDS: PCA shift volume MISC SCH ×3 (07:13→23:16)
[2017-01-04] MEDS: Heparin 5000 units/ml inj SUBQ SCH ×2 (09:00→20:28)
--- NOTE | 2017-01-04 09:13 | General Progress Note ---
Progress Note Progress Note Pt seen and examined. She is doing well POD # 2. Wound vac in place and fxing. Plan for OR on Friday for wound vac change and further flap closure of wounds. Wander Chauhan M.D. WANDER CHAUHAN Jan 04, 2017 09:13
[2017-01-04] MEDS: Docusate 100mg tablet ORAL SCH ×2 (09:16→17:23)
[2017-01-04] MEDS ORDERED: Rate Change PCA 1 Each MISC PRN (12:00)
[2017-01-04] MEDS: D5NS 1,000 ML IV SCH ×2 (12:04→23:32)
[2017-01-04 12:08] VITALS: BP 77/40
[2017-01-04] MEDS ORDERED: Norco 10mg/325mg tab ORAL PRN ×2 (12:30)
[2017-01-04] MEDS ORDERED: Norco 5mg/325mg tab ORAL PRN (12:30)
--- NOTE | 2017-01-04 13:33 | General Progress Note ---
Assessment/Plan Problem List: (1) Wound dehiscence Assessment & Plan: s/p surgery for wound dehiscence POD#2 Cont IV abx f/u cultures Wound care per Plastic surgery DVT ppx Pain control Supp care A total of 31 mins of time was spent on coordination/counseling, in addition to the time spent on the face to face visit ICD Codes: T81.30XA - Disruption of wound, unspecified, initial encounter SNOMED: [id number] Subjective Date patient seen: Jan 04, 2017 Time patient seen: 13:32 ROS Limited/Unobtainable: No Allergies: Coded Allergies: No Known Allergies (Unverified , 03/04/16) Subjective s/p surgery for wound dehiscence POD#2, no periop or postop complications. No chest pain or dyspnea, some nausea, no vomiting, postop pain well controlled. Objective Last 24 Hour Vital Signs Date Time Temp Pulse Resp B/P Pulse Ox O2 Delivery O2 Flow Rate FiO2 01/04/17 12:10 18 01/04/17 12:08 98.1 63 18 77/40 99 Room Air 01/04/17 08:00 18 01/04/17 04:00 16 01/04/17 04:00 97.0 70 19 93/52 99 Room Air 01/04/17 00:00 98.1 80 18 122/78 96 Room Air 01/04/17 00:00 16 01/03/17 23:38 98.1 01/03/17 20:00 97.5 86 16 99/52 99 Room Air 01/03/17 20:00 16 01/03/17 16:00 16 01/03/17 16:00 98.1 69 16 98/61 99 Room Air 01/03/17 13:46 97.5 Intake and Output 01/03/17 01/04/17 19:00 07:00 Intake Total 670 ml 640 ml Output Total 100 ml 110 ml Balance 570 ml 530 ml Intake Oral 240 ml 240 ml IV Total 430 ml 400 ml Drainage Total 100 ml 110 ml # Voids 5 Height (Feet): 5 Height (Inches): 3.00 Weight (Pounds): 202 Objective General: alert, cooperative, no distress, appears stated age Head: normocephalic, without obvious abnormality, atraumatic Eyes: conjunctivae/corneas clear. PERRL, EOM's intact Throat: lips, mucosa, and tongue normal. MMM Neck: supple, symmetrical, trachea midline, and no JVD Lungs: clear to auscultation bilaterally Heart: regular rate and rhythm, S1, S2 normal, no murmur, click, rub or gallop Abdomen: soft, non-tender, non-distended, bowel sounds normal; no masses or organomegaly Extremities: extremities normal, atraumatic, no cyanosis or edema, +drains in buttocks region Pulses: 2+ and symmetric Skin: skin color, texture, turgor normal; no rashes or lesions Neurologic: grossly normal, no focal deficits LEONARDO VASQUEZ Jan 04, 2017 13:33
--- NOTE | 2017-01-04 15:07 | Cardiology Report ---
APPROVED REPORT EKG Measurement Heart [id number] Normal sinus rhythm Normal ECG
[2017-01-04 15:39] VITALS: BP 105/65
[2017-01-04] MEDS: PCA HYDROmorphone 1mg/ml 30 ML IV PRN (16:09)
[2017-01-04 17:34] VITALS: BP 102/71
[2017-01-04 20:00] VITALS: BP 146/57
[2017-01-04] MEDS ORDERED: Tubing IV Secondary IV ONE (21:49)
[2017-01-04] MEDS ORDERED: D5NS 1000ml IV ONE (21:49)
[2017-01-05] VITALS: BP 128/78
[2017-01-05] MEDS: Metoclopramide 10mg/2ml Inj IVP PRN (03:46)
[2017-01-05] MEDS: DiphenhydrAMINE 50mg/ml Inj IVP PRN (03:54)
[2017-01-05] MEDS: Ampicillin/Sulbactam Sod 1.5 GM in NS 55 ML IVPB SCH ×3 (05:06→17:05)
[2017-01-05] MEDS: PCA shift volume MISC SCH ×3 (07:00→23:00)
[2017-01-05] MEDS: Docusate 100mg tablet ORAL SCH ×2 (10:09→17:06)
[2017-01-05] MEDS: Heparin 5000 units/ml inj SUBQ SCH ×2 (10:17→21:00)
[2017-01-05 10:56] VITALS: BP 95/54
[2017-01-05] MEDS ORDERED: D5NS 1000ml IV ONE (11:40)
[2017-01-05] MEDS ORDERED: Tubing IV Secondary IV ONE (11:40)
[2017-01-05 12:22] VITALS: BP 123/66
--- NOTE | 2017-01-05 14:13 | General Progress Note ---
Assessment/Plan Problem List: (1) Wound dehiscence Assessment & Plan: s/p surgery for wound dehiscence POD#3 Cont IV abx f/u cultures Wound care per Plastic surgery DVT ppx Pain control Supp care A total of 31 mins of time was spent on coordination/counseling, in addition to the time spent on the face to face visit ICD Codes: T81.30XA - Disruption of wound, unspecified, initial encounter SNOMED: [id number] Subjective Date patient seen: Jan 05, 2017 Time patient seen: 14:13 ROS Limited/Unobtainable: No Allergies: Coded Allergies: No Known Allergies (Unverified , 03/04/16) Subjective s/p surgery for wound dehiscence POD#3, no periop or postop complications. No chest pain or dyspnea, some nausea, no vomiting, postop pain well controlled. Objective Last 24 Hour Vital Signs Date Time Temp Pulse Resp B/P Pulse Ox O2 Delivery O2 Flow Rate FiO2 01/05/17 12:22 97.9 98 18 123/66 98 Room Air 01/05/17 12:00 18 01/05/17 10:56 97.1 88 18 95/54 96 Room Air 01/05/17 04:00 18 01/05/17 00:38 16 01/05/17 00:00 97.0 72 18 128/78 98 Room Air 01/04/17 20:25 16 01/04/17 20:00 98.1 59 19 146/57 98 Nasal Cannula 2.0 01/04/17 17:34 97.9 83 16 102/71 99 Room Air 01/04/17 16:00 16 01/04/17 15:39 82 20 105/65 Intake and Output 01/04/17 01/05/17 19:00 07:00 Intake Total 1695 ml 1350 ml Output Total 0 ml 55 ml Balance 1695 ml 1295 ml Intake Oral 240 ml 740 ml IV Total 1455 ml 610 ml Drainage Total 0 ml 55 ml # Voids 5 Height (Feet): 5 Height (Inches): 3.00 Weight (Pounds): 202 Objective General: alert, cooperative, no distress, appears stated age Head: normocephalic, without obvious abnormality, atraumatic Eyes: conjunctivae/corneas clear. PERRL, EOM's intact Throat: lips, mucosa, and tongue normal. MMM Neck: supple, symmetrical, trachea midline, and no JVD Lungs: clear to auscultation bilaterally Heart: regular rate and rhythm, S1, S2 normal, no murmur, click, rub or gallop Abdomen: soft, non-tender, non-distended, bowel sounds normal; no masses or organomegaly Extremities: extremities normal, atraumatic, no cyanosis or edema, +drains in buttocks region Pulses: 2+ and symmetric Skin: skin color, texture, turgor normal; no rashes or lesions Neurologic: grossly normal, no focal deficits LEONARDO VASQUEZ Jan 05, 2017 14:13
[2017-01-05 16:00] VITALS: BP 126/71
[2017-01-05] MEDS: PCA HYDROmorphone 1mg/ml 30 ML IV PRN (17:08)
[2017-01-05 20:00] VITALS: BP 123/72
[2017-01-06] VITALS (14 sets, daily range): BP systolic 91–123; BP diastolic 48–88
[2017-01-06] MEDS: Ampicillin/Sulbactam Sod 1.5 GM in NS 55 ML IVPB SCH ×5 (00:27→23:58)
[2017-01-06] MEDS: D5NS 1,000 ML IV SCH ×3 (00:27→23:58)
[2017-01-06] MEDS: DiphenhydrAMINE 50mg/ml Inj IVP PRN (00:27)
[2017-01-06] MEDS: PCA shift volume MISC SCH ×3 (07:00→23:28)
[2017-01-06] MEDS ORDERED: Bacitracin 50000 Units Vial ONE (07:31)
[2017-01-06] MEDS ORDERED: Propofol 10mg/ml 20ml IV ONE (07:31)
[2017-01-06] MEDS ORDERED: Lidocaine 1% 10mg/ml/Epi 0.005mg/ml 30ml vial INJ ONE (07:31)
[2017-01-06] MEDS: Heparin 5000 units/ml inj SUBQ SCH (09:00)
[2017-01-06] MEDS: Docusate 100mg tablet ORAL SCH ×2 (09:00→17:40)
[2017-01-06] MEDS ORDERED: LR 1000ml ONE (10:00)
[2017-01-06] MEDS ORDERED: fentaNYL 100 mcg/2 mL IV ONE (10:00)
[2017-01-06] MEDS ORDERED: Zemuron 50mg/5ml Inj IV ONE (10:00)
[2017-01-06] MEDS ORDERED: Ketorolac 30mg Inj ONE (10:00)
[2017-01-06] MEDS ORDERED: Glycopyrrolate 0.2mg/ml 1ml Vial ONE (10:00)
[2017-01-06] MEDS ORDERED: NS Irrig 1000ml ONE (10:00)
[2017-01-06] MEDS ORDERED: Neostigmine 1mg/ml 10ml Inj ONE (10:00)
[2017-01-06] MEDS ORDERED: Sterile Water Irrig 1000ml IRRIG ONE (10:00)
[2017-01-06] MEDS ORDERED: Succinylcholine 20mg/ml 10ml vial ONE (10:00)
[2017-01-06] MEDS ORDERED: Midazolam 2mg/2ml Inj ONE (10:00)
--- NOTE | 2017-01-06 10:05 | Pre-Procedure Note/Attestation ---
Pre-Procedure Note/Attestation Complete Prior to Procedure Procedure Narrative: Partial lower back wound closure and wound vac changes. Indications for Procedure Pre-Operative Diagnosis: Open lower back wound Attestation I attest that I discussed the nature of the procedure; its benefits; risks and complications; and alternatives (and the risks and benefits of such alternatives ), prior to the procedure, with the patient (or the patient's legal specialty sales representative). I attest that, if there was a reasonable possibility of needing a blood transfusion, the patient (or the patient's legal specialty sales representative) was given the [facility] standardized written summary, pursuant to the [place] Blood Safety Act ([place] Health and Safety Code # 1645, as amended). I attest that I re-evaluated the patient just prior to the surgery and that there has been no change in the patient's H&P, except as documented below: WANDER CHAUHAN Jan 06, 2017 10:05
--- NOTE | 2017-01-06 10:06 | Operative Note - PDOC ---
Operative Note Operative Note Pre-op Diagnosis: Open lower back wound Procedure: Debridement of lower back wound with partial flap closure and wound vac placement Post-op Diagnosis: same as pre-op Surgeon: Luther Label Cutter: Terrell Anesthesia: general Specimen: none Complications: none Condition: stable Estimated Blood Loss: minimal Drains: wound vac WANDER CHAUHAN Jan 06, 2017 10:06
[2017-01-06] MEDS ORDERED: Zolpidem 5mg tab ORAL PRN (10:15)
[2017-01-06] MEDS ORDERED: Rate Change PCA 1 Each MISC PRN (10:15)
[2017-01-06] MEDS ORDERED: PCA HYDROmorphone 1mg/ml 30 ML IV PRN (10:15)
[2017-01-06] MEDS ORDERED: DiphenhydrAMINE 50mg/ml Inj IVP PRN ×2 (10:15→10:45)
[2017-01-06] MEDS ORDERED: LR 1000ml 1,000 ML IVLG SCH (10:43)
[2017-01-06] MEDS ORDERED: Midazolam 2mg/2ml Inj IVP PRN (10:45)
[2017-01-06] MEDS ORDERED: Hydromorphone 0.5mg/0.5ml inj IVP PRN (10:45)
[2017-01-06] MEDS ORDERED: Metoclopramide 10mg/2ml Inj IVP PRN (10:45)
[2017-01-06] MEDS ORDERED: Meperidine 25mg/ml Inj IV PRN (10:45)
[2017-01-06] MEDS ORDERED: fentaNYL 100 mcg/2 mL IV PRN (10:45)
--- NOTE | 2017-01-06 12:46 | Anethesia Preoperative Eval ---
Anesthesia Pre-op PMH/ROS General Date of Evaluation: Jan 06, 2017 Time of Evaluation: 09:50 Anesthesiologist: Ovidio ASA Score: ASA 2 Mallampati Score Class I : Soft palate, uvula, fauces, pillars visible Class II: Soft palate, uvula, fauces visible Class III: Soft palate, base of uvula visible Class IV: Only hard plate visible Mallampati Classification: Class II Surgeon: Luther Diagnosis: infected wounnd Surgical Procedure: Wound vac change revision and closure of lower back wound Anesthesia History: none Family History: no anesthesia problems Allergies: Coded Allergies: No Known Allergies (Unverified , 03/04/16) Medications: see eMAR Past Medical History Cardiovascular: Denies: CAD, HTN, [place], arrhythmia, other, valve dz Pulmonary: Denies: COPD, [place], asthma, other Gastrointestinal/Genitourinary: Reports: GERD Neurologic/Psychiatric: Reports: depression/anxiety, Denies: CVA, TIA, dementia, other Endocrine: Denies: DM, hypothyroidism, other, steroids HEENT: Denies: [place] (L), [place] (R), cataract (L), cataract (R), glaucoma, other Hematology/Immune: Reports: anemia - mild, Denies: DVT, bleeding disorder, other Musculoskeletal/Integumentary: Denies: DDD, DJD, OA, RA, edema, other Other: obesity PMH Narrative: as above PSxH Narrative: see chart Anesthesia Pre-op Phys. Exam Physician Exam Last Vital Signs Date Time Temp Pulse Resp B/P Pulse Ox O2 Delivery O2 Flow Rate FiO2 01/06/17 12:25 97.6 01/06/17 12:25 18 01/06/17 11:55 55 109/66 100 Nasal Cannula 3.0 Constitutional: NAD Neurologic: CN 2-12 intact Cardiovascular: RRR, no M/R/G Respiratory: CTA Gastrointestinal: S/NT/ND Airway Exam Mallampati Score: Class II MO: full Neck: flexible ROM: full Teeth: intact Dentures: no lower, no upper Anesthesia Pre-op A/P Labs see chart Risk Assessment & Plan Assessment: ASA 2 Plan: GA with ETT prone position Status Change Before Surgery: No Pre-Antibiotics Drug: Ancef 1 gr. Given Within 1 Hr of Incision: Yes Time Given: 10:20 YOGI MANLEY M.D. Jan 06, 2017 12:46
--- NOTE | 2017-01-06 12:48 | Immediate Post-Op Evaluation ---
Immediate Post-Op Evalulation Immediate Post-Op Evalulation Procedure: Revision and closure of lower back wound wound vac change Date of Evaluation: Jan 06, 2017 Time of Evaluation: 10:20 IV Fluids: 600 Blood Products: none Estimated Blood Loss: min Urinary Output: none Blood Pressure Systolic: 116 Blood Pressure Diastolic: 57 Pulse Rate: 82 Respiratory Rate: 20 O2 Sat by Pulse Oximetry: 99 Temperature (Fahrenheit): 97.6 Pain Score (1-10): 2 Nausea: No Vomiting: No Complications none Patient Status: reacts, patent, extubated, none Hydration Status: adequate YOGI MANLEY M.D. Jan 06, 2017 12:48
[2017-01-06] MEDS: ceFAZolin sod 1 GM in D5W 55 ML IVPB SCH (17:40)
--- NOTE | 2017-01-06 17:53 | General Progress Note ---
Assessment/Plan Problem List: (1) Wound dehiscence Assessment & Plan: s/p surgery for wound dehiscence POD#4 Cont IV abx f/u cultures Wound care per Plastic surgery DVT ppx Pain control Supp care A total of 31 mins of time was spent on coordination/counseling, in addition to the time spent on the face to face visit ICD Codes: T81.30XA - Disruption of wound, unspecified, initial encounter SNOMED: 593566492 Subjective Date patient seen: Jan 06, 2017 Time patient seen: 17:52 ROS Limited/Unobtainable: No Allergies: Coded Allergies: No Known Allergies (Unverified , 03/04/16) Subjective s/p surgery for wound dehiscence POD#4, no periop or postop complications. No chest pain or dyspnea, some nausea, no vomiting, postop pain well controlled. Objective Last 24 Hour Vital Signs Date Time Temp Pulse Resp B/P Pulse Ox O2 Delivery O2 Flow Rate FiO2 01/06/17 16:13 96.8 62 18 96/48 99 Room Air 01/06/17 16:00 16 01/06/17 13:30 97.7 78 18 123/88 97 Nasal Cannula 2.0 01/06/17 13:12 97.6 01/06/17 13:00 18 01/06/17 12:48 82 20 99 01/06/17 12:30 97.0 56 18 112/68 100 Nasal Cannula 2.0 01/06/17 12:25 97.6 01/06/17 12:25 97.6 01/06/17 12:25 97.6 01/06/17 12:25 18 01/06/17 12:20 18 01/06/17 12:05 18 01/06/17 11:55 17 01/06/17 11:55 97.4 55 15 109/66 100 Nasal Cannula 3.0 01/06/17 11:45 59 17 106/63 100 Nasal Cannula 3.0 01/06/17 11:42 17 01/06/17 11:35 64 19 121/83 100 Nasal Cannula 3.0 01/06/17 11:25 68 22 119/71 100 Simple Mask 6.0 01/06/17 11:20 72 18 110/70 100 Simple Mask 6.0 01/06/17 11:15 84 16 120/79 100 Simple Mask 6.0 01/06/17 11:09 97.5 102 12 91/59 100 Simple Mask 6.0 01/06/17 09:00 18 01/06/17 08:00 98.1 74 20 99/65 98 Room Air 01/06/17 08:00 18 01/06/17 04:00 18 01/06/17 04:00 98.1 69 18 107/59 97 Room Air 01/06/17 00:00 18 01/06/17 00:00 97.7 82 18 102/67 100 Room Air 01/05/17 20:01 18 01/05/17 20:00 98.2 89 18 123/72 99 Room Air Intake and Output 01/05/17 01/06/17 19:00 07:00 Intake Total 630 ml 750 ml Output Total 10 ml 40 ml Balance 620 ml 710 ml Intake Oral 430 ml 350 ml IV Total 200 ml 400 ml Drainage Total 10 ml 40 ml # Voids 2 5 Height (Feet): 5 Height (Inches): 3.00 Weight (Pounds): 202 Objective General: alert, cooperative, no distress, appears stated age Head: normocephalic, without obvious abnormality, atraumatic Eyes: conjunctivae/corneas clear. PERRL, EOM's intact Throat: lips, mucosa, and tongue normal. MMM Neck: supple, symmetrical, trachea midline, and no JVD Lungs: clear to auscultation bilaterally Heart: regular rate and rhythm, S1, S2 normal, no murmur, click, rub or gallop Abdomen: soft, non-tender, non-distended, bowel sounds normal; no masses or organomegaly Extremities: extremities normal, atraumatic, no cyanosis or edema, +drains in buttocks region Pulses: 2+ and symmetric Skin: skin color, texture, turgor normal; no rashes or lesions Neurologic: grossly normal, no focal deficits LEONARDO VASQUEZ Jan 06, 2017 17:53
--- NOTE | 2017-01-06 18:28 | Operative Note - Dictated ---
DATE OF OPERATION: 01/06/2017 PREOPERATIVE DIAGNOSIS: Open lower back wound. POSTOPERATIVE DIAGNOSIS: Open lower back wound. PROCEDURES: 1. Debridement of lower back wound. 2. Flap elevation x2 for partial closure of lower flap wound. 3. Wound VAC application to the lower back wound. SURGEON: Remy Sloan M.D. STATION AGENT: Chastity Tejada M.D. ANESTHESIA: General. COMPLICATIONS: None. DRAINS: A wound VAC set to 175 mmHg of continuous high suction. DISPOSITION: Stable to the recovery room. INDICATIONS FOR SURGERY: This is a 41-year-old female, who is now four days postoperative from debridement of the lower back wound status post dehiscence of her lower back wound closure from reconstruction of a pilonidal cyst wound. She has been doing well with a wound VAC and is ready to undergo further closure of the wound with re-application of the wound VAC. She understood the risks and benefits of surgery and agreed to proceed. DETAILS OF THE OPERATION: The patient was brought to the operating room and laid in prone position on the operating table. Her lower back was prepped and draped in a sterile and usual fashion. We first began by debriding some of the wound bed of some of the nonviable tissue and we then began to raise fasciocutaneous flap to the inferior aspect of the wound, raising first a right-sided fasciocutaneous flap based off of perforators of the inferior gluteal artery, and then proximal distal incision was made to fully mobilize the flap and then in a similar fashion, a left-sided fasciocutaneous flap based off of perforators of the inferior gluteal artery was elevated with proximal and distal incisions made to fully mobilize the flap. The wound was then copiously irrigated with pulse lavage, and the flaps were brought together in the lower aspect of the wound using #0 and 2-0 Vicryl sutures and the skin was then closed with multiple interrupted vertical mattress 2-0 Prolene sutures. The superior aspect of the wound at this time was then dressed with a wound VAC sponge, which was then secured in place and following the completion of the partial lower wound flap closure, the wound dimensions decreased by approximately 40%. The VAC device was then turned on and the suction was noted to be working fine. The patient tolerated the procedure well. There were no complications. Remy Sloan M.D. DR: RAFI JOB#: [id number] CC:
[2017-01-06] MEDS ORDERED: D5NS 1000ml IV ONE (18:58)
[2017-01-06] MEDS: HYDROmorphone 1mg/ml Carpuject IVP PRN (19:22)
[2017-01-06] MEDS: Metoclopramide 10mg/2ml Inj IVP PRN (21:32)
[2017-01-07 00:52] VITALS: BP 117/59
[2017-01-07] MEDS: ceFAZolin sod 1 GM in D5W 55 ML IVPB SCH ×3 (01:27→18:15)
[2017-01-07 04:00] VITALS: BP 119/61
[2017-01-07] MEDS: Ampicillin/Sulbactam Sod 1.5 GM in NS 55 ML IVPB SCH ×3 (05:13→20:42)
[2017-01-07] MEDS: PCA shift volume MISC SCH (07:00)
[2017-01-07 08:00] VITALS: BP 113/69
--- NOTE | 2017-01-07 08:29 | General Progress Note ---
Progress Note Progress Note Pt seen and examined. POD# 1 from wound vac change and partial wound closure of lower back. Doing well but wound vac came off last night. Plan: Woundcare nurse to replace the wound vac. To OR in a few days for wound vac change and will arrange for outpt wound vac changes. WANDER Fox M.D. Jan 07, 2017 08:29
[2017-01-07] MEDS: Docusate 100mg tablet ORAL SCH ×2 (08:36→18:15)
[2017-01-07] MEDS: Heparin 5000 units/ml inj SUBQ SCH ×2 (08:43→20:44)
[2017-01-07] MEDS: HYDROmorphone 1mg/ml Carpuject IVP PRN ×5 (08:50→23:16)
--- NOTE | 2017-01-07 10:31 | Wound Nurse Progress Note ---
Wound RN Progress Note Wound Consult Wound Vac Changed as per Dr. Sloan, foam remains intact to middle of buttock , remains clean , noted otilia intact, surrounding skin was cleansed, applied skin barrier protectant film, created a bridge to left side buttocks , skin barrier film and clear tegaderm placed under bridge for skin management, dry gauze placed on staple site, dressing was reinforced ,was able to obtain a complete seal with complete suction as ordered, with low leakage levels, wound vac dressing intact and working well. Patient tolerated dressing change well, no c/o pain or discomfort upon providing treatment. LOREE BLANCO Jan 07, 2017 10:31
--- NOTE | 2017-01-07 11:52 | 48 Hour Post Anesthesia Eval ---
Post Anesthesia Evaluation Procedure: Revision and closure of lower back wound wound vac change Date of Evaluation: Jan 07, 2017 Time of Evaluation: 09:30 Blood Pressure Systolic: 113 0: 69 Pulse Rate: 80 Respiratory Rate: 18 Temperature (Fahrenheit): 97.9 O2 Sat by Pulse Oximetry: 100 Airway: patent Nausea: No Vomiting: No Pain Intensity: 3 Hydration Status: adequate Cardiopulmonary Status: Stable Mental Status/LOC: patient returned to baseline Follow-up Care/Observations: As per surgery Post-Anesthesia Complications: No anesthetic complication Follow-up care needed: N/A CHANEL LEDBETTER M.D. Jan 07, 2017 11:52
[2017-01-07 12:00] VITALS: BP 118/64
--- NOTE | 2017-01-07 15:38 | General Progress Note ---
Assessment/Plan Problem List: (1) Wound dehiscence Assessment & Plan: s/p surgery for wound dehiscence POD#5 Cont IV abx f/u cultures Wound care per Plastic surgery DVT ppx Pain control Supp care A total of 31 mins of time was spent on coordination/counseling, in addition to the time spent on the face to face visit ICD Codes: T81.30XA - Disruption of wound, unspecified, initial encounter SNOMED: [id number] Subjective Date patient seen: Jan 07, 2017 Time patient seen: 15:37 ROS Limited/Unobtainable: No Allergies: Coded Allergies: No Known Allergies (Unverified , 03/04/16) Subjective s/p surgery for wound dehiscence POD#5, no periop or postop complications. No chest pain or dyspnea, some nausea, no vomiting, postop pain well controlled. Objective Last 24 Hour Vital Signs Date Time Temp Pulse Resp B/P Pulse Ox O2 Delivery O2 Flow Rate FiO2 01/07/17 14:54 97.9 01/07/17 12:00 98.0 69 18 118/64 95 Room Air 01/07/17 11:52 80 18 100 01/07/17 08:00 18 01/07/17 08:00 97.9 80 18 113/69 100 Room Air 01/07/17 04:00 17 01/07/17 04:00 98.1 67 20 119/61 100 Room Air 01/07/17 00:52 97.9 69 21 117/59 100 Room Air 01/07/17 00:00 16 01/06/17 20:37 98.1 80 19 123/74 100 Room Air 01/06/17 20:00 16 01/06/17 16:13 96.8 62 18 96/48 99 Room Air 01/06/17 16:00 16 Intake and Output 01/06/17 01/07/17 19:00 07:00 Intake Total 1415 ml 395 ml Output Total 30 ml Balance 1385 ml 395 ml Intake Oral 610 ml 240 ml IV Total 805 ml 155 ml Drainage Total 20 ml Estimated Blood Loss 10 ml # Voids 4 Height (Feet): 5 Height (Inches): 3.00 Weight (Pounds): 202 Objective General: alert, cooperative, no distress, appears stated age Head: normocephalic, without obvious abnormality, atraumatic Eyes: conjunctivae/corneas clear. PERRL, EOM's intact Throat: lips, mucosa, and tongue normal. MMM Neck: supple, symmetrical, trachea midline, and no JVD Lungs: clear to auscultation bilaterally Heart: regular rate and rhythm, S1, S2 normal, no murmur, click, rub or gallop Abdomen: soft, non-tender, non-distended, bowel sounds normal; no masses or organomegaly Extremities: extremities normal, atraumatic, no cyanosis or edema, +drains in buttocks region Pulses: 2+ and symmetric Skin: skin color, texture, turgor normal; no rashes or lesions Neurologic: grossly normal, no focal deficits LEONARDO VASQUEZ Jan 07, 2017 15:38
[2017-01-07 16:33] VITALS: BP 100/72
[2017-01-07 20:24] VITALS: BP 97/71
[2017-01-07] MEDS: D5NS 1,000 ML IV SCH (20:42)
[2017-01-08] MEDS: Ampicillin/Sulbactam Sod 1.5 GM in NS 55 ML IVPB SCH ×3 (00:34→13:39)
[2017-01-08 00:56] VITALS: BP 124/72
[2017-01-08] MEDS: ceFAZolin sod 1 GM in D5W 55 ML IVPB SCH ×3 (01:52→19:41)
[2017-01-08] MEDS: HYDROmorphone 1mg/ml Carpuject IVP PRN ×3 (03:18→22:10)
[2017-01-08 04:00] VITALS: BP 110/55
[2017-01-08] MEDS: Docusate 100mg tablet ORAL SCH ×2 (10:19→18:00)
[2017-01-08] MEDS: Heparin 5000 units/ml inj SUBQ SCH ×2 (10:29→21:00)
[2017-01-08 14:00] VITALS: BP 118/68
--- NOTE | 2017-01-08 15:22 | General Progress Note ---
Assessment/Plan Status: stable Assessment/Plan (1) Wound dehiscence Assessment & Plan: s/p surgery for wound dehiscence POD#6 Cont IV abx f/u cultures Wound care per Plastic surgery DVT ppx Pain control Supp care ICD Codes: T81.30XA - Disruption of wound, unspecified, initial encounter SNOMED: [id number] [2] Dysuria Check U/A w/ reflex A total of 31 mins of time was spent on coordination/counseling, in addition to the time spent on the face to face visit. D/w surgery re plan of care. D/w patient re pain mgmt, urinary symptoms. D/w surgery re plan of care Subjective Date patient seen: Jan 08, 2017 Time patient seen: 15:22 ROS Limited/Unobtainable: No Constitutional: Reports: no symptoms HEENT: Reports: no symptoms Cardiovascular: Reports: no symptoms Respiratory: Reports: no symptoms Gastrointestinal/Abdominal: Reports: no symptoms Genitourinary: Reports: no symptoms Neurologic/Psychiatric: Reports: no symptoms Endocrine: Reports: no symptoms Hematologic/Lymphatic: Reports: no symptoms Allergies: Coded Allergies: No Known Allergies (Unverified , 03/04/16) All Systems: reviewed and negative except above Subjective Pain controlled OOB C/o burning pain when urinating Objective Last 24 Hour Vital Signs Date Time Temp Pulse Resp B/P Pulse Ox O2 Delivery O2 Flow Rate FiO2 01/08/17 14:00 98.0 86 20 118/68 97 Room Air 01/08/17 10:49 98.1 01/08/17 04:00 98.1 70 21 110/55 98 Room Air 01/08/17 00:56 98.1 67 20 124/72 98 Room Air 01/07/17 20:24 98.2 75 18 97/71 100 Room Air 01/07/17 16:33 98.2 90 19 100/72 99 Room Air Intake and Output 01/07/17 01/08/17 19:00 07:00 Intake Total 650 ml 290 ml Balance 650 ml 290 ml Intake Oral 650 ml 240 ml IV Total 50 ml # Voids 5 Height (Feet): 5 Height (Inches): 3.00 Weight (Pounds): 202 Objective General: alert, cooperative, no distress, appears stated age Head: normocephalic, without obvious abnormality, atraumatic Eyes: conjunctivae/corneas clear. PERRL, EOM's intact Throat: lips, mucosa, and tongue normal. MMM Neck: supple, symmetrical, trachea midline, and no JVD Lungs: clear to auscultation bilaterally Heart: regular rate and rhythm, S1, S2 normal, no murmur, click, rub or gallop Abdomen: soft, non-tender, non-distended, bowel sounds normal; no masses or organomegaly Extremities: extremities normal, atraumatic, no cyanosis or edema Pulses: 2+ and symmetric Skin: skin color, texture, turgor normal; no rashes or lesions Neurologic: grossly normal, no focal deficits Jane Malcolm M.D. Jan 08, 2017 15:22
[2017-01-08 16:00] VITALS: BP 136/82
[2017-01-08] MEDS: D5NS 1,000 ML IV SCH (19:41)
[2017-01-08 20:00] VITALS: BP 104/63
[2017-01-09] VITALS (12 sets, daily range): BP systolic 97–126; BP diastolic 55–92
[2017-01-09] MEDS: HYDROmorphone 1mg/ml Carpuject IVP PRN ×5 (01:47→20:32)
[2017-01-09] MEDS: ceFAZolin sod 1 GM in D5W 55 ML IVPB SCH (02:37)
[2017-01-09] MEDS ORDERED: Bacitracin 50000 Units Vial ONE (06:30)
[2017-01-09] MEDS ORDERED: EPINEPHrine 1mg/1ml Amp ONE (06:30)
[2017-01-09] MEDS ORDERED: Lidocaine 1% 10mg/ml/Epi 0.005mg/ml 30ml vial INJ ONE (06:31)
[2017-01-09] MEDS ORDERED: Morphine Sulfate 10mg/ml Inj ONE (07:00)
[2017-01-09] MEDS ORDERED: Sterile Water Irrig 1000ml IRRIG ONE (07:00)
[2017-01-09] MEDS ORDERED: LR 1000ml ONE (07:00)
[2017-01-09] MEDS ORDERED: fentaNYL 100 mcg/2 mL IV ONE (07:00)
[2017-01-09] MEDS ORDERED: Ketorolac 30mg Inj ONE (07:00)
[2017-01-09] MEDS ORDERED: Zemuron 50mg/5ml Inj IV ONE (07:00)
[2017-01-09] MEDS ORDERED: Propofol 10mg/ml 20ml IV ONE (07:00)
[2017-01-09] MEDS ORDERED: NS Irrig 1000ml ONE (07:00)
[2017-01-09] MEDS ORDERED: Midazolam 2mg/2ml Inj ONE (07:00)
[2017-01-09] MEDS ORDERED: Succinylcholine 20mg/ml 10ml vial ONE (07:00)
--- NOTE | 2017-01-09 07:03 | Pre-Procedure Note/Attestation ---
Pre-Procedure Note/Attestation Complete Prior to Procedure Planned Procedure: left Procedure Narrative: Left breast wound closure and wound vac change lower back Indications for Procedure Pre-Operative Diagnosis: Open breast and Open lower back wound Attestation I attest that I discussed the nature of the procedure; its benefits; risks and complications; and alternatives (and the risks and benefits of such alternatives ), prior to the procedure, with the patient (or the patient's legal member service representative). I attest that, if there was a reasonable possibility of needing a blood transfusion, the patient (or the patient's legal member service representative) was given the [facility] standardized written summary, pursuant to the Bhaskar Odalys Blood Safety Act ([place] Health and Safety Code # 1645, as amended). I attest that I re-evaluated the patient just prior to the surgery and that there has been no change in the patient's H&P, except as documented below: WANDER CHAUHAN Jan 09, 2017 07:03
--- NOTE | 2017-01-09 07:03 | Operative Note - PDOC ---
Operative Note Operative Note Pre-op Diagnosis: Open breast and Open lower back wound Procedure: CLosure of left breast wound and wound vac change to lower back wound Post-op Diagnosis: same as pre-op Surgeon: Luther Ammunition Officer: Terrell Anesthesia: general Specimen: none Complications: none Condition: stable Estimated Blood Loss: minimal Drains: wound vac Implant(s) used?: WANDER [place] Jan 09, 2017 07:03
[2017-01-09] MEDS ORDERED: LR 1000ml 1,000 ML IVLG SCH (07:59)
--- NOTE | 2017-01-09 07:59 | Anethesia Preoperative Eval ---
Anesthesia Pre-op PMH/ROS General Date of Evaluation: Jan 09, 2017 Time of Evaluation: 06:50 Anesthesiologist: Ovidio ASA Score: ASA 2 Mallampati Score Class I : Soft palate, uvula, fauces, pillars visible Class II: Soft palate, uvula, fauces visible Class III: Soft palate, base of uvula visible Class IV: Only hard plate visible Mallampati Classification: Class II Surgeon: Luther Diagnosis: Recurrent HS Surgical Procedure: Back wound vac change R breast wound closure Anesthesia History: none Family History: no anesthesia problems Allergies: Coded Allergies: No Known Allergies (Unverified , 03/04/16) Past Medical History Cardiovascular: Denies: CAD, HTN, [place], arrhythmia, other, valve dz Pulmonary: Denies: COPD, [place], asthma, other Gastrointestinal/Genitourinary: Reports: GERD Neurologic/Psychiatric: Denies: CVA, TIA, dementia, depression/anxiety, other Endocrine: Denies: DM, hypothyroidism, other, steroids HEENT: Denies: [place] (L), [place] (R), cataract (L), cataract (R), glaucoma, other Hematology/Immune: Denies: DVT, anemia, bleeding disorder, other Musculoskeletal/Integumentary: Reports: other - recfurrent HS Other: other - overweight PSxH Narrative: as above Anesthesia Pre-op Phys. Exam Physician Exam Last Vital Signs Date Time Temp Pulse Resp B/P Pulse Ox O2 Delivery O2 Flow Rate FiO2 01/09/17 05:18 97.5 01/09/17 04:00 69 18 120/75 97 Room Air 01/06/17 13:30 2.0 Constitutional: NAD Neurologic: CN 2-12 intact Cardiovascular: RRR, no M/R/G Respiratory: CTA Gastrointestinal: S/NT/ND Airway Exam Mallampati Score: Class II MO: full Neck: flexible Anesthesia Pre-op A/P Labs see chart Risk Assessment & Plan Assessment: ASA 2 Plan: GA with ETT prone and supine position Status Change Before Surgery: No Pre-Antibiotics Drug: Ancef 1gr. Given Within 1 Hr of Incision: Yes Time Given: 07:20 YOGI MANLEY M.D. Jan 09, 2017 07:59
[2017-01-09] MEDS ORDERED: Meperidine 25mg/ml Inj IV PRN (08:00)
[2017-01-09] MEDS ORDERED: Metoclopramide 10mg/2ml Inj IVP PRN (08:00)
[2017-01-09] MEDS ORDERED: fentaNYL 100 mcg/2 mL IV PRN (08:00)
[2017-01-09] MEDS ORDERED: DiphenhydrAMINE 50mg/ml Inj IVP PRN ×2 (08:00)
[2017-01-09] MEDS ORDERED: Midazolam 2mg/2ml Inj IVP PRN (08:00)
[2017-01-09] MEDS ORDERED: Ketorolac 30mg Inj IV PRN (08:00)
[2017-01-09] MEDS ORDERED: Hydromorphone 0.5mg/0.5ml inj IVP PRN ×2 (08:00→08:05)
[2017-01-09] MEDS: Docusate 100mg tablet ORAL SCH ×2 (09:00→17:17)
[2017-01-09] MEDS: Heparin 5000 units/ml inj SUBQ SCH ×2 (09:00→20:35)
--- NOTE | 2017-01-09 09:48 | Immediate Post-Op Evaluation ---
Immediate Post-Op Evalulation Immediate Post-Op Evalulation Procedure: Revision and closure of lower back wound wound vac change Date of Evaluation: Jan 09, 2017 Time of Evaluation: 08:40 IV Fluids: 800 Blood Products: none Estimated Blood Loss: min Urinary Output: none Blood Pressure Systolic: 132 Blood Pressure Diastolic: 62 Pulse Rate: 74 Respiratory Rate: 20 O2 Sat by Pulse Oximetry: 99 Temperature (Fahrenheit): 97.1 Pain Score (1-10): 2 Nausea: No Vomiting: No Complications none Patient Status: awake, reacts, patent, extubated, none Hydration Status: adequate YOGI MANLEY M.D. Jan 09, 2017 09:48
[2017-01-09] MEDS: D5NS 1,000 ML IV SCH ×2 (10:23→12:00)
--- NOTE | 2017-01-09 10:28 | Operative Note - Dictated ---
DATE OF OPERATION: 01/09/2017 PREOPERATIVE DIAGNOSES: 1. Open lower back wound. 2. Opened lower left breast wound. POSTOPERATIVE DIAGNOSES: 1. Open lower back wound. 2. Opened lower left breast wound. PROCEDURES: 1. Debridement of lower back wound. 2. Wound VAC placement to the lower back wound. 3. Debridement and preparation of lower breast wound for flap closure. 4. Aligned flap advancement closure with 4-0 strangled for closure of the left breast wound. SURGEON: Remy Sloan M.D. NEWS WIRE PHOTO OPERATOR: Chastity Tejada M.D. ANESTHESIA: General. COMPLICATIONS: None. DRAINS: Wound VAC. DISPOSITION: Stable to the recovery room INDICATIONS FOR SURGERY: This is a 41-year-old, black female, who is well known to me who has had recent wound VAC change in her lower back and also has a lower left breast wound secondary to delayed healing of a breast reduction incision, who is presenting to the operating room today for definitive closure of left breast wound and wound VAC replacement to the lower back wound. She understands the risks and benefits of surgery and agreed to proceed. The patient brought to the operating room, and initially laid in the prone position on the operating table. Her lower back was prepped and draped in a sterile and usual fashion. The lower buttock wound was noted to be healing well. There was some surface exudate which was debrided with sharply with a #10 blade. The wound was then copiously irrigated with pulse lavage and a small wound VAC device. A small VAC sponge was then inserted into the wound and connected to suction and was noted to be working just fine. The wound measured 5 x 3 cm with 2.5 cm depth. The dressings were then applied. The patient was then flipped and placed in the supine position. Her chest was prepped and draped in the usual fashion. The wound below lower breast at the T point of the breast reduction scar measured approximately 2 x 2 cm and had a long course of healing and at this point, a circular designed around the scar was made, a #15 blade was then used to excise the edges of the wound and rectangular advancement flap was designed and a Alex flap with 4-0 strangled on either side of the flaps to allow for full advancement. The incisions were made on the flap and 4-0 strangles were excised. The flap was then elevated and the wound was irrigated. Hemostasis was achieved in the right flap was then advanced into the wound and the wound prior to advancing the flap into the wound. The wound was debrided down to healthy punctate bleeding. The flap was then advanced into the wound bed using 2-0 and 3-0 Vicryl sutures. The skin was closed with a interrupted 3-0 Prolene sutures. The patient tolerated the procedure well. There is no complications. Remy Sloan M.D. DR: Lorin JOB#: [id number] CC: ZELDA
[2017-01-09] MEDS ORDERED: D5NS 1000ml IV ONE (15:10)
--- NOTE | 2017-01-09 17:03 | Discharge Instructions ---
Discharge Instructions Discharge Instructions Follow up with: Dr. Sloan in 1 week Call MD/Return to Hospital if: fevers, chills, chest pain, SOB Services at Discharge: home health services Diet: regular Resume Normal Activity?: Yes Activity: resume normal activities For Surgical Patients Dressing Care: keep dry and clean For Congestive Heart Failure Reminder Report to your physician any weight gain of 5 pounds or more in one week. Jane Malcolm M.D. Jan 09, 2017 17:03
[2017-01-09] MEDS: ceFAZolin sod 1 GM in D5W 55 ML IV SCH (17:16)
[2017-01-09] MEDS ORDERED: Zolpidem 5mg tab ORAL PRN (21:00)
--- NOTE | 2017-01-09 21:33 | General Progress Note ---
Assessment/Plan Status: stable Assessment/Plan (1) Wound dehiscence Assessment & Plan: s/p surgery for wound dehiscence POD#7 s/p debridement and wound vac placement on 01/09/17 Cont IV abx f/u cultures Wound care per Plastic surgery DVT ppx Pain control Supp care ICD Codes: T81.30XA - Disruption of wound, unspecified, initial encounter SNOMED: [id number] [2] Dysuria Check U/A w/ reflex--neg. Symptoms resolved A total of 30 mins of time was spent on coordination/counseling, in addition to the time spent on the face to face visit. D/w surgery re plan of care. D/w patient re procedure, dispo, meds, outpt f/u Subjective Date patient seen: Jan 09, 2017 Time patient seen: 16:00 ROS Limited/Unobtainable: No Constitutional: Reports: no symptoms HEENT: Reports: no symptoms Cardiovascular: Reports: no symptoms Respiratory: Reports: no symptoms Gastrointestinal/Abdominal: Reports: no symptoms Genitourinary: Reports: no symptoms Neurologic/Psychiatric: Reports: no symptoms Endocrine: Reports: no symptoms Hematologic/Lymphatic: Reports: no symptoms Allergies: Coded Allergies: No Known Allergies (Unverified , 03/04/16) All Systems: reviewed and negative except above Subjective s/p debridement and wound vac placement earlier today Pain controlled OOB Awaiting wound vac delivery prior to return home Objective Last 24 Hour Vital Signs Date Time Temp Pulse Resp B/P Pulse Ox O2 Delivery O2 Flow Rate FiO2 01/09/17 17:46 98.2 01/09/17 16:00 98.2 69 17 112/55 98 Room Air 01/09/17 12:00 97.7 76 18 118/64 100 Nasal Cannula 2.0 01/09/17 11:00 97.5 60 20 120/73 100 Nasal Cannula 2.0 01/09/17 09:48 74 20 99 01/09/17 09:30 97.3 68 16 122/61 100 Nasal Cannula 3.0 01/09/17 09:28 97.1 01/09/17 09:20 58 13 114/67 100 Nasal Cannula 3.0 01/09/17 09:15 60 14 125/83 100 Nasal Cannula 3.0 01/09/17 09:00 62 16 121/81 100 Nasal Cannula 3.0 01/09/17 08:45 64 15 122/63 99 Simple Mask 6.0 01/09/17 08:40 66 15 123/70 99 Simple Mask 6.0 01/09/17 08:36 97.8 92 36 126/92 99 Simple Mask 6.0 01/09/17 05:18 97.5 01/09/17 04:00 97.9 69 18 120/75 97 Room Air Intake and Output 01/08/17 01/09/17 19:00 07:00 Intake Total 1205 ml 400 ml Balance 1205 ml 400 ml Intake Oral 600 ml IV Total 605 ml 400 ml # Voids 1 1 # Bowel Movements 3 1 Height (Feet): 5 Height (Inches): 3.00 Weight (Pounds): 202 Objective General: alert, cooperative, no distress, appears stated age Head: normocephalic, without obvious abnormality, atraumatic Eyes: conjunctivae/corneas clear. PERRL, EOM's intact Throat: lips, mucosa, and tongue normal. MMM Neck: supple, symmetrical, trachea midline, and no JVD Lungs: clear to auscultation bilaterally Heart: regular rate and rhythm, S1, S2 normal, no murmur, click, rub or gallop Abdomen: soft, non-tender, non-distended, bowel sounds normal; no masses or organomegaly Extremities: extremities normal, atraumatic, no cyanosis or edema Pulses: 2+ and symmetric Skin: skin color, texture, turgor normal; no rashes or lesions Neurologic: grossly normal, no focal deficits Jane Malcolm M.D. Jan 09, 2017 21:33
[2017-01-10] VITALS: BP 131/71
[2017-01-10] MEDS: D5NS 1,000 ML IV SCH (00:02)
[2017-01-10] MEDS: ceFAZolin sod 1 GM in D5W 55 ML IV SCH (00:03)
[2017-01-10] MEDS: HYDROmorphone 1mg/ml Carpuject IVP PRN ×2 (01:01→08:40)
[2017-01-10 01:25] LABS: APPEARANCE,URINE CLEAR; KETONES,URINE NEGATIVE (NEGATIVE); LEUKOCYTE ESTERASE ,URINE NEGATIVE (NEGATIVE); NITRITE,URINE NEGATIVE (NEGATIVE); PH,URINE 7 (4.5-8.0); PROTEIN,URINE NEGATIVE (NEGATIVE); UROBILINOGEN,URINE NORMAL MG/DL (0.0-1.0)
[2017-01-10 04:00] VITALS: BP 109/72
[2017-01-10 08:00] VITALS: BP 106/64
[2017-01-10] MEDS: Docusate 100mg tablet ORAL SCH (08:40)
[2017-01-10] MEDS: Heparin 5000 units/ml inj SUBQ SCH (08:44)
[2017-01-10] MEDS ORDERED: CEPHALEXIN500 MG ORAL (09:36)
[2017-01-10] MEDS ORDERED: NORCO 10-325 T1 EACH ORAL (09:36)
[2017-01-10] MEDS ORDERED: DILAUDID2 MG ORAL (09:37)
[2017-01-10 10:27] VITALS: BP 106/64
--- NOTE | 2017-01-10 10:27 | 48 Hour Post Anesthesia Eval ---
Post Anesthesia Evaluation Procedure: Revision and closure of lower back wound wound vac change Date of Evaluation: Jan 10, 2017 Time of Evaluation: 10:26 Blood Pressure Systolic: 106 0: 64 Pulse Rate: 69 Respiratory Rate: 20 Temperature (Fahrenheit): 98 O2 Sat by Pulse Oximetry: 96 Airway: patent Nausea: No Vomiting: No Pain Intensity: 3 Hydration Status: adequate Cardiopulmonary Status: Stable Mental Status/LOC: patient returned to baseline Follow-up Care/Observations: Na Post-Anesthesia Complications: na Follow-up care needed: N/A OMAR DOUGLASS M.D. Jan 10, 2017 10:27
[2017-01-10] MEDS ORDERED: D5NS 1000ml IV ONE (10:41)
--- NOTE | 2017-01-10 16:20 | Discharge Summary ---
Discharge Summary Hospital Course Date of Admission Jan 01, 2017 at 00:00 Date of Discharge Jan 10, 2017 at 10:42 Admitting Diagnosis wound dehiscence Reason for Hospitalization: wound dehiscence, abscess HPI 41 y/o AA female with hx of hidradenitis, s/p multiple I+D and flap surgeries recently, dced home last month, returns to the ER with wound dehiscence in her buttocks area. She was seen by her surgeon and was sent to ED to be admitted for this. There have been no changes to her medical condition, no new meds since her last discharge. Denies fevers/chills, some pain but currently well controlled in the buttocks area Consultations Plastic surgery Procedures 01/02/17: 1. Exploration of lower back wound. 2. Debridement of lower back wound. 3. Re-elevation of left gluteal rotation flap. 4. Re-elevation of right gluteal rotation flap. 5. Re-elevation of lower posterior trunk flap. 01/06/17: 1. Debridement of lower back wound. 2. Flap elevation x2 for partial closure of lower flap wound. 3. Wound VAC application to the lower back wound. 01/09/17: 1. Debridement of lower back wound. 2. Wound VAC placement to the lower back wound. 3. Debridement and preparation of lower breast wound for flap closure. 4. Aligned flap advancement closure with 4-0 strangled for closure of the left breast wound. Hospital Course Pt was admitted and seen by plastic surgery. She underwent exploration and debridment of lower back wound on 01/02/17, debridement and flap elevation for partial closure w/ wound VAC application of lower back wound n 01/06/17, and then finally debridement, wound WAC placement and aligned flap adancement closure of left breast wound on 01/09/17. Pt tolerated the procedures well. Once pain controlled and wounds stable, pt was discharge home with wound WAC and with home health. Discharge Medications Continued Medications: Alprazolam* (Xanax*) 0.5 Mg Tablet 0.5 MG ORAL, TAB Cephalexin* (Keflex*) 500 Mg Capsule 500 MG ORAL QID, #20 CAP Hydrocodone Bit/Acetaminophen 10-325* (Doon 10-325*) 1 Each Tablet 1 TAB ORAL Q6H PRN for For Pain, #30 TAB 0 Refills PRN PAIN Hydromorphone HCl (Dilaudid) 2 Mg Tablet 2 MG ORAL Q6H PRN for Severe Pain (Pain Scale 7-10), #30 TAB 0 Refills Lidocaine (Anecream) 5 Gm Cream..g. 1 GM TP BID PRN for prn, #1 GM 0 Refills No Known Medications* (NKM - No Known Medications*) . 0 ., 0 Refills Discontinued Medications: Oxycodone/Acetaminophen 5-325* (Percocet 5-325 Mg Tablet*) 1 Each Tablet 1 TAB ORAL Q4H PRN for For Pain, #40 TAB Oxycodone/Acetaminophen 5-325* (Percocet 5-325 Mg Tablet*) 1 Each Tablet 2 TAB ORAL Q6H PRN for For Pain, #40 TAB 0 Refills Discharge Condition Upon Discharge: stable Discharge Disposition Patient was discharged to Home with Home Health() Discharge Diagnoses: (1) Abscess of skin and subcutaneous tissue (2) Wound dehiscence (3) Hidradenitis suppurativa Discharge Instructions Discharge Instructions Follow up with: Dr. Sloan in 1 week Call MD/Return to Hospital if: fevers, chills, chest pain, SOB Services Upon Discharge: home health services Activity: resume normal activities For Surgical Patients Dressing Care: keep dry and clean Jane Malcolm M.D. Jan 10, 2017 16:20
== END 2017-01-10 10:42 | disposition home health service (06) | DRG 574 ==
LOC: EMR 23:48 → EDBEDREQ 23:53 → 3E 01-01 → EDBEDREQ 01-01 00:23
PROC: 0H88XZZ Division of Buttock Skin, External Approach (ICD-10-PCS; principal; 2017-01-02 10:00)
PROC: 0H86XZZ Division of Back Skin, External Approach (ICD-10-PCS; principal; 2017-01-02 10:00)
PROC: 0JB70ZZ Excision of Back Subcutaneous Tissue and Fascia, Open Approach (ICD-10-PCS; principal; 2017-01-02 10:00)
PROC: 0H86XZZ Division of Back Skin, External Approach (ICD-10-PCS; 2017-01-06)
PROC: 0JX70ZZ Transfer Back Subcutaneous Tissue and Fascia, Open Approach (ICD-10-PCS; 2017-01-06)
PROC: 0JX60ZZ Transfer Chest Subcutaneous Tissue and Fascia, Open Approach (ICD-10-PCS; 2017-01-09)
PROC: 0JB70ZZ Excision of Back Subcutaneous Tissue and Fascia, Open Approach (ICD-10-PCS; 2017-01-09)
PROC: 0JB60ZZ Excision of Chest Subcutaneous Tissue and Fascia, Open Approach (ICD-10-PCS; 2017-01-09)
DX: L02.31 Cutaneous abscess of buttock (principal); T81.30XA Disruption of wound, unspecified, initial encounter; T81.89XA Other complications of procedures, not elsewhere classified, initial encounter; L73.2 Hidradenitis suppurativa; Y83.8 Other surgical procedures as the cause of abnormal reaction of the patient, or of later complication, without mention of misadventure at the time of the procedure
CPT/HCPCS: 36415; 71010; 80048; 80053; 81001; 81003; 81025; 85025; 85610; 85730; 86850; 86900; 86901; 86920; 93005; 94003; 94150; J2180; J2250; J2405; J2710; J2765

== ENCOUNTER 2017-01-29 19:05 | Inpatient (IN) | payer OTHER, MEDICAID ==
[~2017-01-29] VITALS: Ht 162.6 cm; Wt 92.5 kg
[~2017-01-29 19:05] MED LIST changes: +DILAUDID2 MG ORAL; +NKM; +NORCO 10-325 T1 EACH ORAL
[2017-01-29 20:06] VITALS: BP 113/74
[2017-01-29 20:30] LABS: PROTHROMBIN TIME 10.2 SEC (9.30-11.50)
[2017-01-29 20:37] LABS: APPEARANCE,URINE CLEAR; KETONES,URINE NEGATIVE (NEGATIVE); LEUKOCYTE ESTERASE ,URINE NEGATIVE (NEGATIVE); NITRITE,URINE NEGATIVE (NEGATIVE); PH,URINE 6 (4.5-8.0); PROTEIN,URINE NEGATIVE (NEGATIVE); UROBILINOGEN,URINE NORMAL MG/DL (0.0-1.0)
--- NOTE | 2017-01-29 20:37 | Emergency Room Report ---
History of Present Illness General Chief Complaint: General Complaint Present Illness HPI 41YOF patient of Dr Contreras sent to [facility] ED for pre-op preparation for wound dehiscence s/p surgery 01/03. Denies fever/chills. Some wound drainage. Wound Care nurse stated unable to continue to care for wound with just wound vac. Recently completed Keflex Abx. Allergies: Coded Allergies: No Known Allergies (Unverified , 03/04/16) Patient History Past Medical History: none Past Surgical History: other - See triage note Pertinent Family History: none Social History: Denies: alcohol use, drug use, smoking Last Menstrual Period: 12/29/16 Now: No Immunizations: UTD Reviewed Nursing Documentation: PMH: Agreed, PSxH: Agreed Nursing Documentation-PMH Hx Cardiac Problems: No Hx Cancer: No Hx Neurological Problems: No Review of Systems All Other Systems: negative except mentioned in HPI Physical Exam Vital Signs Date Time Temp Pulse Resp B/P Pulse Ox O2 Delivery O2 Flow Rate FiO2 01/29/17 19:14 97.9 82 14 113/74 99 Room Air Sp02 EP Interpretation: reviewed, normal General Appearance: normal inspection, well appearing, no apparent distress, alert, GCS 15, non-toxic Head: normocephalic, atraumatic Eyes: bilateral eye EOMI, bilateral eye PERRL ENT: normal ENT inspection, hearing grossly normal, normal voice Neck: normal inspection, full range of motion, supple, no bony tend Respiratory: normal inspection, lungs clear, normal breath sounds, no respiratory distress, no retraction, no wheezing Cardiovascular #1: regular rate, rhythm, no edema Gastrointestinal: normal inspection, normal bowel sounds, non tender, soft, no guarding, no hernia Genitourinary: no CVA tenderness Musculoskeletal: normal inspection, back normal, normal range of motion, Betty' s Sign negative Neurologic: normal inspection, alert, responsive, speech normal Psychiatric: normal inspection, judgement/insight normal, mood/affect normal Skin: other - Patient has wound vac in place. Showed me pics on phone of wound : There is generalized wound dehiscence with missing otilia to T-shaped area incision of lower back/between gluteal folds. No obvious cellulitis on visual inspection. Medical Decision Making Diagnostic Impression: Primary Impression: Hidradenitis suppurativa ER Course Labs in progress Endorsed to Dr Chaz Contreras at 8pm for med/surg admission EKG Diagnostic Results Rate: normal Rhythm: NSR ST Segments: no acute changes ASA given to the pt in ED: No Chest X-Ray Diagnostic Results EP Interpretation: Yes Findings: no consolidation, no effusion, no pneumothorax, no acute cardiopulmonary disease Number of Views: 1 Last Vital Signs Date Time Temp Pulse Resp B/P Pulse Ox O2 Delivery O2 Flow Rate FiO2 01/29/17 20:06 97.9 78 14 113/74 99 Room Air Status: improved Disposition: ADMITTED INPATIENT Condition: Serious KATIA WILDE M.D. Jan 29, 2017 20:37
[2017-01-29 20:42] LABS: ALANINE AMINOTRANSFERASE 9 U/L (3-33); ALBUMIN/GLOBULIN RATIO 1.1 (1.0-2.7); ANION GAP 17 (5-15); ASPARTATE AMINO TRANSFERASE 14 U/L (5-40); CALCIUM 8.9 mg/dL (8.6-10.2); CARBON DIOXIDE 22 mEQ/L (20-30); CHLORIDE 98 mEQ/L (98-107); CREATININE 0.8 mg/dL (0.5-0.9); GLOMERULAR FILTRATION RATE > 60 mL/min (>60); HEMOLYSIS 3; LIPASE 71 U/L (< 60); POTASSIUM 3.8 mEQ/L (3.4-4.9); SODIUM 137 mEQ/L (135-145); TOTAL PROTEIN 7.2 g/dL (6.6-8.7)
[2017-01-29 20:43] LABS: EOSINOPHILS % (AUTO) 5.4 % (0.0-3.0); LYMPHOCYTES % (AUTO) 26.1 % (20.0-45.0); MEAN CORPUSCULAR HEMOGLOBIN 18.7 PG (27.0-31.0); MEAN CORPUSCULAR HGB CONC 28.1 G/DL (32.0-36.0); MEAN CORPUSCULAR VOLUME 67 FL (80-99); MEAN PLATELET VOLUME 8.7 FL (6.5-10.1); MONOCYTES % (AUTO) 5.9 % (1.0-10.0); NEUTROPHILS % (AUTO) 61.5 % (45.0-75.0); PLATELET COUNT 315 K/UL (150-450); RED BLOOD COUNT 5.25 M/UL (4.20-5.40); RED CELL DISTRIBUTION WIDTH 14.7 % (11.6-14.8); WHITE BLOOD COUNT 8.8 K/UL (4.8-10.8)
[2017-01-29] MEDS ORDERED: Oxycodone/Acetaminophen 5-325 ORAL ONE (20:45)
--- NOTE | 2017-01-29 21:26 | History and Physical ---
History of Present Illness General Date patient seen: Jan 30, 2017 Time patient seen: 09:00 Reason for Hospitalization: General Complaint Present Illness HPI 41YOF patient with groin abscesses, s/p recent surgery for I+D and complex wound reconstruction, sent to [place] ED for wound dehiscence s/p surgery 01/03. Denies fever/chills. Some wound drainage. Wound Care nurse stated unable to continue to care for wound with just wound vac. Recently completed Keflex Abx. Allergies: Coded Allergies: No Known Allergies (Unverified , 03/04/16) Medication History Scheduled Cephalexin* (Keflex*), 500 MG ORAL QID, (Reported) Cephalexin* (Keflex*), 500 MG ORAL QID, (Reported) No Known Medications* (NKM - No Known Medications*), 0 ., (Reported) Scheduled PRN Hydrocodone Bit/Acetaminophen 10-325* (R[place] 10-325*), 1 TAB ORAL Q6H PRN for For Pain, (Reported) Hydromorphone HCl (Dilaudid), 2 MG ORAL Q6H PRN for Severe Pain (Pain Scale 7-10 ), (Reported) Lidocaine (Anecream), 1 GM TP BID PRN for prn, (Reported) Miscellaneous Medications Alprazolam* (Xanax*), 0.5 MG ORAL, (Reported) Patient History History Provided By: Patient Healthcare decision maker Resuscitation status Advanced Directive on File Past Medical/Surgical History Past Medical/Surgical History: (1) Hidradenitis suppurativa Family History Family History: Patient reports no known family medical history. Social History Social History: (1) No significant social history Review of Systems ROS Narrative CONSTITUTIONAL: No weight loss, fever, chills, weakness or fatigue. HEENT: Eyes: No visual loss, blurred vision, double vision or yellow sclerae. Ears, Nose, Throat: No hearing loss, sneezing, congestion, runny nose or sore throat. SKIN: No rash or itching. CARDIOVASCULAR: No chest pain, chest pressure or chest discomfort. No palpitations or edema. RESPIRATORY: No shortness of breath, cough or sputum. GASTROINTESTINAL: No anorexia, nausea, vomiting or diarrhea. No abdominal pain or blood. NEUROLOGICAL: No headache, dizziness, syncope, paralysis, ataxia, numbness or tingling in the extremities. No change in bowel or bladder control. MUSCULOSKELETAL: No muscle, back pain, joint pain or stiffness. HEMATOLOGIC: No anemia, bleeding or bruising. LYMPHATICS: No enlarged nodes. No history of splenectomy. PSYCHIATRIC: No history of depression or anxiety. ENDOCRINOLOGIC: No reports of sweating, cold or heat intolerance. No polyuria or polydipsia. ALLERGIES: No history of asthma, hives, eczema or rhinitis. Physical Exam Physical Exam Narrative General: alert, cooperative, no distress, appears stated age Head: normocephalic, without obvious abnormality, atraumatic Eyes: conjunctivae/corneas clear. PERRL, EOM's intact Throat: lips, mucosa, and tongue normal. MMM Neck: supple, symmetrical, trachea midline, and no JVD Lungs: clear to auscultation bilaterally Heart: regular rate and rhythm, S1, S2 normal, no murmur, click, rub or gallop Abdomen: soft, non-tender, non-distended, bowel sounds normal; no masses or organomegaly Extremities: extremities normal, atraumatic, no cyanosis or edema Pulses: 2+ and symmetric Skin: skin color, texture, turgor normal; no rashes or lesions Neurologic: grossly normal, no focal deficits Last 24 Hour Vital Signs Date Time Temp Pulse Resp B/P Pulse Ox O2 Delivery O2 Flow Rate FiO2 01/29/17 20:06 97.9 78 14 113/74 99 Room Air 01/29/17 19:14 97.9 82 14 113/74 99 Room Air Laboratory Tests Test 01/29/17 19:55 White Blood Count 8.8 K/UL (4.8-10.8) Red Blood Count 5.25 M/UL (4.20-5.40) Hemoglobin 9.8 G/DL (12.0-16.0) L Hematocrit 34.9 % (37.0-47.0) L Mean Corpuscular Volume 67 FL (80-99) L Mean Corpuscular Hemoglobin 18.7 PG (27.0-31.0) L Mean Corpuscular Hemoglobin Concent 28.1 G/DL (32.0-36.0) L Red Cell Distribution Width 14.7 % (11.6-14.8) Platelet Count 315 K/UL (150-450) Mean Platelet Volume 8.7 FL (6.5-10.1) Neutrophils (%) (Auto) 61.5 % (45.0-75.0) Lymphocytes (%) (Auto) 26.1 % (20.0-45.0) Monocytes (%) (Auto) 5.9 % (1.0-10.0) Eosinophils (%) (Auto) 5.4 % (0.0-3.0) H Basophils (%) (Auto) 1.0 % (0.0-2.0) Prothrombin Time 10.2 SEC (9.30-11.50) Prothromb Time International Ratio 1.0 (0.9-1.1) Activated Partial Thromboplast Time 29 SEC (23-33) Urine Color Pale yellow Urine Appearance Clear Urine pH 6 (4.5-8.0) Urine Specific [employer] 1.010 (1.005-1.035) Urine Protein Negative (NEGATIVE) Urine Glucose (UA) Negative (NEGATIVE) Urine Ketones Negative (NEGATIVE) Urine Occult Blood Negative (NEGATIVE) Urine Nitrite Negative (NEGATIVE) Urine Bilirubin Negative (NEGATIVE) Urine Urobilinogen Normal MG/DL (0.0-1.0) Urine Leukocyte Esterase Negative (NEGATIVE) Sodium Level 137 mEQ/L (135-145) Potassium Level 3.8 mEQ/L (3.4-4.9) Chloride Level 98 mEQ/L (98-107) Carbon Dioxide Level 22 mEQ/L (20-30) Anion Gap 17 (5-15) H Blood Urea Nitrogen 11 mg/dL (7-23) Creatinine 0.8 mg/dL (0.5-0.9) Estimat Glomerular Filtration Rate > 60 mL/min (>60) Glucose Level 106 mg/dL (74-106) Calcium Level 8.9 mg/dL (8.6-10.2) Total Bilirubin < 0.2 mg/dL (0.0-1.2) Aspartate Amino Transf (AST/SGOT) 14 U/L (5-40) Alanine Aminotransferase (ALT/SGPT) 9 U/L (3-33) Alkaline Phosphatase 65 U/L (35-104) Total Protein 7.2 g/dL (6.6-8.7) Albumin 3.8 g/dL (3.5-5.2) Globulin 3.4 g/dL Albumin/Globulin Ratio 1.1 (1.0-2.7) Lipase 71 U/L (< 60) H Height (Feet): 5 Height (Inches): 4.00 Weight (Pounds): 204 Assessment/Plan Problem List: (1) Wound dehiscence Assessment & Plan: Admit to inpatient Pain control Supp care IV abx check cultures If patient is required to have surgery, based on the patient's medical history, and other available ancillary data, the patient is a LOW risk for an INTERMEDIATE risk procedure. Per the most recent ACC/AHA guidelines, the patient does not need any further cardiopulmonary testing prior to the procedure and there do not appear to be any clear medical contraindications to proceeding with the proposed procedure. a total of 31 minutes of prolonged service time was spent with the patient, in addition to the time spent on face to face interaction for this visit ICD Codes: T81.30XA - Disruption of wound, unspecified, initial encounter SNOMED: [id number] LEONARDO VASQUEZ Jan 29, 2017 21:26
[2017-01-29] MEDS ORDERED: Morphine Sulfate 4mg/ml Inj IVP PRN (21:30)
[2017-01-29] MEDS ORDERED: Mylanta II UD 30ml ORAL PRN (21:30)
[2017-01-29] MEDS ORDERED: Morphine Sulfate 2mg/ml Inj IVP PRN (21:30)
[2017-01-29] MEDS ORDERED: Milk of Magnesia 30ml Ud ORAL PRN (21:30)
[2017-01-29] MEDS ORDERED: Miralax 17gm pkt ORAL PRN (21:30)
[2017-01-29] MEDS ORDERED: LORazepam Inj 2mg/ml 1ml IV PRN (21:30)
[2017-01-29 21:33] VITALS: BP 96/58
[2017-01-29] MEDS: D5NS 1,000 ML IV SCH (22:39)
[2017-01-29] MEDS: ceFAZolin 1gm in D5W 55ml IVPB SCH (22:45)
[2017-01-29 22:51] VITALS: BP 123/73
[2017-01-30] VITALS (17 sets, daily range): BP systolic 96–164; BP diastolic 53–95
[2017-01-30] MEDS: ceFAZolin 1gm in D5W 55ml IVPB SCH ×3 (05:07→21:13)
[2017-01-30 07:38] LABS: ANION GAP 18 (5-15); CALCIUM 8.6 mg/dL (8.6-10.2); CARBON DIOXIDE 21 mEQ/L (20-30); CHLORIDE 99 mEQ/L (98-107); CREATININE 0.7 mg/dL (0.5-0.9); GLOMERULAR FILTRATION RATE > 60 mL/min (>60); HEMOLYSIS 0; POTASSIUM 3.7 mEQ/L (3.4-4.9); SODIUM 138 mEQ/L (135-145)
[2017-01-30] MEDS ORDERED: Lidocaine 1% 10mg/ml/Epi 0.005mg/ml 30ml vial INJ ONE (07:43)
[2017-01-30] MEDS ORDERED: Bacitracin 50000 Units Vial ONE (07:43)
[2017-01-30] MEDS: Docusate 100mg tablet ORAL SCH ×2 (08:39→21:12)
[2017-01-30] MEDS ORDERED: Zemuron 50mg/5ml Inj IV ONE (09:00)
[2017-01-30] MEDS ORDERED: Morphine Sulfate 10mg/ml Inj ONE (09:00)
[2017-01-30] MEDS ORDERED: Ketorolac 30mg Inj ONE (09:00)
[2017-01-30] MEDS ORDERED: LR 1000ml ONE (09:00)
[2017-01-30] MEDS ORDERED: fentaNYL 100 mcg/2 mL IV ONE (09:00)
[2017-01-30] MEDS ORDERED: Succinylcholine 20mg/ml 10ml vial ONE (09:00)
[2017-01-30] MEDS ORDERED: Midazolam 2mg/2ml Inj ONE (09:00)
[2017-01-30] MEDS ORDERED: NS Irrig 1000ml ONE (09:00)
[2017-01-30] MEDS ORDERED: Neostigmine 1mg/ml 10ml Inj ONE (09:00)
[2017-01-30] MEDS ORDERED: Propofol 10mg/ml 20ml IV ONE (09:00)
[2017-01-30] MEDS ORDERED: Sterile Water Irrig 1000ml IRRIG ONE (09:00)
[2017-01-30] MEDS ORDERED: Glycopyrrolate 0.2mg/ml 1ml Vial ONE (09:00)
--- NOTE | 2017-01-30 09:00 | Pre-Procedure Note/Attestation ---
Pre-Procedure Note/Attestation Complete Prior to Procedure Planned Procedure: not applicable Procedure Narrative: Lower back wound washout and partial closure with wound vac placement Attestation I attest that I discussed the nature of the procedure; its benefits; risks and complications; and alternatives (and the risks and benefits of such alternatives ), prior to the procedure, with the patient (or the patient's legal nutrition representative). I attest that, if there was a reasonable possibility of needing a blood transfusion, the patient (or the patient's legal nutrition representative) was given the [facility] standardized written summary, pursuant to the Bhaskar Odalys Blood Safety Act ([place] Health and Safety Code # 1645, as amended). I attest that I re-evaluated the patient just prior to the surgery and that there has been no change in the patient's H&P, except as documented below: WANDER CHAUHAN Jan 30, 2017 09:00
--- NOTE | 2017-01-30 09:01 | Operative Note - PDOC ---
Operative Note Operative Note Pre-op Diagnosis: Lower back wound Procedure: Lower back wound debridement and partial closure with wound vac change Post-op Diagnosis: same as pre-op Surgeon: Luther Cop Winder: Terrell Anesthesia: general Specimen: none Complications: none Condition: stable Estimated Blood Loss: minimal Drains: wound vac Implant(s) used?: No WANDER CHAUHAN Jan 30, 2017 09:01
[2017-01-30] MEDS ORDERED: Zolpidem 5mg tab ORAL PRN (09:15)
[2017-01-30] MEDS ORDERED: Hydromorphone 0.5mg/0.5ml inj IVP PRN ×2 (09:15→10:15)
[2017-01-30] MEDS ORDERED: NS Irrig 1000ml IRRIG ONE (09:15)
[2017-01-30] MEDS ORDERED: Metoclopramide 10mg/2ml Inj IVP PRN ×2 (09:15→10:15)
--- NOTE | 2017-01-30 10:03 | Anethesia Preoperative Eval ---
Anesthesia Pre-op PMH/ROS General Date of Evaluation: Jan 30, 2017 Time of Evaluation: 09:10 Anesthesiologist: Ovidio ASA Score: ASA 2 Mallampati Score Class I : Soft palate, uvula, fauces, pillars visible Class II: Soft palate, uvula, fauces visible Class III: Soft palate, base of uvula visible Class IV: Only hard plate visible Mallampati Classification: Class II Surgeon: Luther Diagnosis: Recurrent hydradenitis Surgical Procedure: Revision and closure of lower back wound Anesthesia History: none Family History: no anesthesia problems Allergies: Coded Allergies: No Known Allergies (Unverified , 03/04/16) Medications: see eMAR Past Medical History Cardiovascular: Denies: CAD, HTN, DC, arrhythmia, other, valve dz Pulmonary: Denies: COPD, DARLENE, asthma, other Gastrointestinal/Genitourinary: Reports: GERD, Denies: CRI, ESRD, other Neurologic/Psychiatric: Reports: depression/anxiety, Denies: CVA, TIA, dementia, other Endocrine: Denies: DM, hypothyroidism, other, steroids HEENT: Denies: [place] (L), [place] (R), cataract (L), cataract (R), glaucoma, other Hematology/Immune: Reports: anemia, Denies: DVT, bleeding disorder, other Musculoskeletal/Integumentary: Denies: DDD, DJD, OA, RA, edema, other Other: other - overweight PMH Narrative: as above PSxH Narrative: See chart Anesthesia Pre-op Phys. Exam Physician Exam Last Vital Signs Date Time Temp Pulse Resp B/P Pulse Ox O2 Delivery O2 Flow Rate FiO2 01/30/17 08:00 98.4 74 20 96/57 98 Room Air Constitutional: NAD Neurologic: CN 2-12 intact Cardiovascular: RRR, no M/R/G Respiratory: CTA Gastrointestinal: S/NT/ND Airway Exam Mallampati Score: Class II MO: full Neck: flexible ROM: full Teeth: intact Dentures: no lower, no upper Anesthesia Pre-op A/P Labs Hematology Test 01/29/17 19:55 White Blood Count 8.8 K/UL (4.8-10.8) Red Blood Count 5.25 M/UL (4.20-5.40) Hemoglobin 9.8 G/DL (12.0-16.0) L Hematocrit 34.9 % (37.0-47.0) L Mean Corpuscular Volume 67 FL (80-99) L Mean Corpuscular Hemoglobin 18.7 PG (27.0-31.0) L Mean Corpuscular Hemoglobin Concent 28.1 G/DL (32.0-36.0) L Red Cell Distribution Width 14.7 % (11.6-14.8) Platelet Count 315 K/UL (150-450) Mean Platelet Volume 8.7 FL (6.5-10.1) Neutrophils (%) (Auto) 61.5 % (45.0-75.0) Lymphocytes (%) (Auto) 26.1 % (20.0-45.0) Monocytes (%) (Auto) 5.9 % (1.0-10.0) Eosinophils (%) (Auto) 5.4 % (0.0-3.0) H Basophils (%) (Auto) 1.0 % (0.0-2.0) Coagulation Test 01/29/17 19:55 Prothrombin Time 10.2 SEC (9.30-11.50) Prothromb Time International Ratio 1.0 (0.9-1.1) Activated Partial Thromboplast Time 29 SEC (23-33) Chemistry Test 01/29/17 19:55 01/30/17 06:50 Sodium Level 137 mEQ/L (135-145) 138 mEQ/L (135-145) Potassium Level 3.8 mEQ/L (3.4-4.9) 3.7 mEQ/L (3.4-4.9) Chloride Level 98 mEQ/L (98-107) 99 mEQ/L (98-107) Carbon Dioxide Level 22 mEQ/L (20-30) 21 mEQ/L (20-30) Anion Gap 17 (5-15) H 18 (5-15) H Blood Urea Nitrogen 11 mg/dL (7-23) 7 mg/dL (7-23) Creatinine 0.8 mg/dL (0.5-0.9) 0.7 mg/dL (0.5-0.9) Estimat Glomerular Filtration Rate > 60 mL/min (>60) > 60 mL/min (>60) Glucose Level 106 mg/dL (74-106) 95 mg/dL (74-106) Calcium Level 8.9 mg/dL (8.6-10.2) 8.6 mg/dL (8.6-10.2) Total Bilirubin < 0.2 mg/dL (0.0-1.2) Aspartate Amino Transf (AST/SGOT) 14 U/L (5-40) Alanine Aminotransferase (ALT/SGPT) 9 U/L (3-33) Alkaline Phosphatase 65 U/L (35-104) Total Protein 7.2 g/dL (6.6-8.7) Albumin 3.8 g/dL (3.5-5.2) Globulin 3.4 g/dL Albumin/Globulin Ratio 1.1 (1.0-2.7) Lipase 71 U/L (< 60) H Urine Test Test 01/30/17 07:30 Urine HCG, Qualitative Negative Risk Assessment & Plan Assessment: ASA 2 Plan: GA with ETT prone position Pre-Antibiotics Drug: Ancef 1gr. Given Within 1 Hr of Incision: Yes Time Given: 10:28 YOGI MANLEY M.D. Jan 30, 2017 10:03
[2017-01-30] MEDS ORDERED: LR 1000ml 1,000 ML IVLG SCH (10:08)
[2017-01-30] MEDS ORDERED: DiphenhydrAMINE 50mg/ml Inj IVP PRN (10:15)
[2017-01-30] MEDS ORDERED: Midazolam 2mg/2ml Inj IVP PRN (10:15)
[2017-01-30] MEDS ORDERED: fentaNYL 100 mcg/2 mL IV PRN (10:15)
--- NOTE | 2017-01-30 10:44 | Immediate Post-Op Evaluation ---
Immediate Post-Op Evalulation Immediate Post-Op Evalulation Procedure: Revision and partial closure of sacral wound Date of Evaluation: Jan 30, 2017 Time of Evaluation: 10:43 IV Fluids: 700 Blood Products: none Estimated Blood Loss: <50 Urinary Output: none Blood Pressure Systolic: 132 Blood Pressure Diastolic: 71 Pulse Rate: 94 Respiratory Rate: 22 O2 Sat by Pulse Oximetry: 99 Temperature (Fahrenheit): 97.3 Pain Score (1-10): 2 Nausea: No Vomiting: No Complications none Patient Status: reacts, patent, extubated, none Hydration Status: adequate YOGI MANLEY M.D. Jan 30, 2017 10:44
--- NOTE | 2017-01-30 11:34 | Diagnostic Imaging Report ---
Indication: SOB Technique: One view of the chest Comparison: 01/01/2017 Findings: Patient is rotated to the right. Lungs and pleural spaces are clear. Heart size is normal aorta is tortuous and ectatic. No significant change Impression: No acute process
[2017-01-30] MEDS: D5NS 1,000 ML IV SCH (13:21)
--- NOTE | 2017-01-30 16:48 | Operative Note - Dictated ---
DATE OF OPERATION: 01/30/2017 PREOPERATIVE DIAGNOSIS: Open lower back wound. POSTOPERATIVE DIAGNOSIS: Open lower back wound. PROCEDURES: 1. Debridement of lower back wound in preparation for flap transfer. 2. Elevation of a right-sided gluteal flap for partial closure of wound. 3. Elevation of a lower back fasciocutaneous flap for closure of lower back wound. SURGEON: Remy Sloan M.D. PRODUCTION ASSOCIATE: Chastity Tejada M.D. ANESTHESIA: General. COMPLICATIONS: None. DRAINS: A wound VAC. EBL: Minimal. DISPOSITION: Stable to the recovery room. INDICATIONS FOR SURGERY: This is a 41-year-old, female, who is well known to me, who has undergone previous lower back wound reconstruction, who presented to the emergency room with pain and drainage with dehiscence of the right side of her wound. I felt that she would be an appropriate candidate for debridement and preparation of wound for partial flap coverage. She understood the risks and benefits of surgery and agreed to proceed. DETAILS OF THE OPERATION: The patient was brought to the operating room and laid in the prone position on the operating room table. Her lower back was prepped and draped in a sterile and usual fashion. We first began by debriding the wound bed and the preparation for flap transfer. The previously raised right gluteal flap that was a rotational flap was reelevated by first debriding the superior skin edges of some of the nonviable tissue and a flap was then reelevated at the fasciocutaneous level. With this done, we noted that in order to accomplish partial closure of the superior aspect of the wound, a corresponding lower back fasciocutaneous flap had also to be elevated. This was elevated just at above the level of the paraspinous muscles with contribution of the lumbar perforators as far as the blood supply to the flap. Once these flaps were both fully mobilized, the wound was copiously irrigated. The flaps were advanced to allow for partial closure of the wound with #0 and 2-0 Vicryl sutures and otilia were used to close the skin. The central aspect of the wound was left open and looked quite healthy and was re-dressed with the wound VAC set at 175 mmHg on high continuous suction. The patient tolerated the procedure well. There were no complications. Remy Sloan M.D. DR: RAFI JOB#: [id number] CC:
[2017-01-30] MEDS: HYDROmorphone 1mg/ml Carpuject IVP PRN ×2 (16:52→22:11)
--- NOTE | 2017-01-30 20:13 | Cardiology Report ---
APPROVED REPORT EKG Measurement Heart [id number] Sinus rhythm with short DE Otherwise normal ECG
[2017-01-30] MEDS: Heparin 5000 units/ml inj SUBQ SCH (21:30)
[2017-01-31] VITALS: BP 129/69
[2017-01-31] MEDS: D5NS 1,000 ML IV SCH ×3 (00:40→21:50)
[2017-01-31] MEDS: HYDROmorphone 1mg/ml Carpuject IVP PRN ×6 (01:57→18:38)
[2017-01-31 04:00] VITALS: BP 99/56
[2017-01-31] MEDS: ceFAZolin 1gm in D5W 55ml IVPB SCH ×3 (05:26→21:50)
[2017-01-31 08:00] VITALS: BP 117/68
[2017-01-31] MEDS: Docusate 100mg tablet ORAL SCH ×2 (08:45→21:50)
[2017-01-31] MEDS: Heparin 5000 units/ml inj SUBQ SCH ×2 (08:52→21:58)
--- NOTE | 2017-01-31 10:17 | General Progress Note ---
Assessment/Plan Problem List: (1) Wound dehiscence Assessment & Plan: s/p gluteal wound surgery POD#1 Pain control Supp care IV abx f/u cultures a total of 31 minutes of prolonged service time was spent with the patient, in addition to the time spent on face to face interaction for this visit ICD Codes: T81.30XA - Disruption of wound, unspecified, initial encounter SNOMED: [id number] Subjective Date patient seen: Jan 31, 2017 Time patient seen: 10:15 ROS Limited/Unobtainable: No Allergies: Coded Allergies: No Known Allergies (Unverified , 03/04/16) Subjective s/p wound surgery POD#1, no periop or postop complications. No chest pain or dyspnea, postop pain well controlled. Objective Last 24 Hour Vital Signs Date Time Temp Pulse Resp B/P Pulse Ox O2 Delivery O2 Flow Rate FiO2 01/31/17 09:15 97.9 01/31/17 08:00 97.2 68 20 117/68 100 01/31/17 04:00 97.9 58 18 99/56 100 Room Air 01/31/17 00:00 97.9 73 18 129/69 97 Room Air 01/30/17 20:00 97.5 60 16 104/53 96 Room Air 01/30/17 16:00 96.6 64 16 105/53 98 Room Air 01/30/17 13:45 97.9 77 20 108/68 99 Room Air 01/30/17 13:40 98.8 01/30/17 13:15 97.9 77 19 107/75 99 Room Air 01/30/17 13:00 97.9 87 17 110/68 100 Room Air 01/30/17 12:45 98.2 69 18 102/65 99 Room Air 2.0 01/30/17 12:30 98.0 78 18 99/60 99 Nasal Cannula 2.0 01/30/17 11:26 98.8 68 18 107/60 98 Nasal Cannula 3.0 01/30/17 11:16 98.8 65 18 113/71 98 Nasal Cannula 3.0 01/30/17 11:00 67 18 97/75 100 Nasal Cannula 3.0 01/30/17 10:45 107 18 139/73 100 Simple Mask 10.0 01/30/17 10:44 94 22 99 01/30/17 10:38 99 18 132/71 100 Simple Mask 10.0 01/30/17 10:33 114 18 164/95 100 Simple Mask 10.0 01/30/17 10:28 98.7 134 18 124/56 100 Simple Mask 10.0 Intake and Output 01/30/17 01/31/17 19:00 07:00 Intake Total 1265 ml 1065 ml Output Total 50 ml Balance 1265 ml 1015 ml Intake Oral 390 ml 540 ml IV Total 875 ml 525 ml Output Drainage Total 50 ml # Voids 1 3 Height (Feet): 5 Height (Inches): 4.00 Weight (Pounds): 204 Objective General: alert, cooperative, no distress, appears stated age Head: normocephalic, without obvious abnormality, atraumatic Eyes: conjunctivae/corneas clear. PERRL, EOM's intact Throat: lips, mucosa, and tongue normal. MMM Neck: supple, symmetrical, trachea midline, and no JVD Lungs: clear to auscultation bilaterally Heart: regular rate and rhythm, S1, S2 normal, no murmur, click, rub or gallop Abdomen: soft, non-tender, non-distended, bowel sounds normal; no masses or organomegaly Extremities: gluteal wound c/d/i Pulses: 2+ and symmetric Skin: skin color, texture, turgor normal; no rashes or lesions Neurologic: grossly normal, no focal deficits LEONARDO VASQUEZ Jan 31, 2017 10:17
--- NOTE | 2017-01-31 11:31 | General Progress Note ---
Progress Note Progress Note Pt seen and examined. POD# 1and doing well. Wound vac is fxing well. Plan for DC in or Friday. WANDER Fox MD Jan 31, 2017 11:31
--- NOTE | 2017-01-31 11:44 | 48 Hour Post Anesthesia Eval ---
Post Anesthesia Evaluation Procedure: Revision and partial closure of sacral wound Date of Evaluation: Jan 31, 2017 Time of Evaluation: 11:43 Blood Pressure Systolic: 114 0: 68 Pulse Rate: 74 Respiratory Rate: 22 Temperature (Fahrenheit): 97.6 O2 Sat by Pulse Oximetry: 99 Airway: patent Nausea: No Vomiting: No Pain Intensity: 3 Hydration Status: adequate Cardiopulmonary Status: stable Mental Status/LOC: patient returned to baseline Follow-up Care/Observations: n/a Post-Anesthesia Complications: none Follow-up care needed: N/A YOGI MANLEY M.D. Jan 31, 2017 11:44
[2017-01-31 12:11] VITALS: BP 126/77
[2017-01-31 16:00] VITALS: BP 113/63
[2017-01-31] MEDS ORDERED: D5NS 1000ml IV ONE (16:41)
[2017-01-31] MEDS ORDERED: Tubing IV Secondary IV ONE (16:41)
[2017-01-31 20:00] VITALS: BP 136/64
[2017-01-31] MEDS ORDERED: Norco 5mg/325mg tab ORAL PRN (22:00)
[2017-02-01] VITALS (7 sets, daily range): BP systolic 97–133; BP diastolic 55–80
[2017-02-01] MEDS: HYDROmorphone 1mg/ml Carpuject IVP PRN ×4 (00:21→13:21)
[2017-02-01] MEDS: ceFAZolin 1gm in D5W 55ml IVPB SCH ×3 (06:38→21:55)
[2017-02-01] MEDS: Docusate 100mg tablet ORAL SCH ×2 (09:18→21:20)
--- NOTE | 2017-02-01 09:19 | General Progress Note ---
Progress Note Progress Note Pt seen and examined. Doing well. Plan on dc in am. WANDER Fox MD Feb 01, 2017 09:19
[2017-02-01] MEDS: Heparin 5000 units/ml inj SUBQ SCH ×2 (09:23→21:27)
[2017-02-01] MEDS ORDERED: Zolpidem 5mg tab ORAL PRN (11:30)
--- NOTE | 2017-02-01 13:17 | General Progress Note ---
RAFAEL VÁSQUEZ N.P. 02/01/17 1317: Assessment/Plan Status: doing well, stable Assessment/Plan (1) Wound dehiscence Assessment & Plan: s/p gluteal wound surgery POD#2 Pain control, okay on dilaudid IVP prn Supp care; had ambien last night; able to sleep IV abx; no fevers on current management Multiple questions discussed with patient; warning sides and symptoms of infection discussed at length in preparation for discharge f/u cultures a total of 31 minutes of prolonged service time was spent with the patient, in addition to the time spent on face to face interaction for this visit Subjective Date patient seen: Feb 01, 2017 Time patient seen: 13:12 Constitutional: Denies: chills, diaphoresis, fever HEENT: Denies: blurred vision, eye pain, mouth pain, mouth swelling, tearing Cardiovascular: Denies: chest pain, edema, irregular heart rate Respiratory: Denies: cough, orthopnea, shortness of breath Gastrointestinal/Abdominal: Denies: abdomen distended, abdominal pain Genitourinary: Denies: burning, discharge, flank pain, frequency Neurologic/Psychiatric: Reports: anxiety, Denies: depressed, emotional problems , headache Endocrine: Denies: excessive sweating, flushing, intolerance to cold Hematologic/Lymphatic: Denies: anemia, easy bleeding, easy bruising Allergies: Coded Allergies: No Known Allergies (Unverified , 03/04/16) Subjective Patient has multiple questions, states she feels anxious d/t loss of control being a patient. Wound care discussed. Assessed by Dr. Sloan earlier today; recommending no dressing changes at this time. Objective Last 24 Hour Vital Signs Date Time Temp Pulse Resp B/P Pulse Ox O2 Delivery O2 Flow Rate FiO2 02/01/17 12:00 98.2 72 18 113/80 94 Room Air 02/01/17 10:07 98.1 02/01/17 08:08 98.1 64 17 98/64 97 Room Air 02/01/17 04:00 97.2 74 19 133/71 99 Room Air 02/01/17 00:00 97.9 66 18 107/62 100 Room Air 01/31/17 20:00 97.9 82 18 136/64 100 Room Air 01/31/17 16:00 98.2 79 17 113/63 99 Room Air Intake and Output 01/31/17 02/01/17 19:00 07:00 Intake Total 1280 ml 1080 ml Output Total 75 ml 970 ml Balance 1205 ml 110 ml Intake Oral 700 ml 480 ml IV Total 580 ml 600 ml Output Urine Total 900 ml Drainage Total 75 ml 70 ml # Voids 2 5 Height (Feet): 5 Height (Inches): 4.00 Weight (Pounds): 204 General Appearance: WD/WN, no apparent distress, alert EENT: PERRL/EOMI, normal ENT inspection, TMs normal Neck: non-tender, normal alignment, supple Cardiovascular: normal peripheral pulses Respiratory/Chest: chest wall non-tender, lungs clear, normal breath sounds Abdomen: normal bowel sounds, non tender, soft, no organomegaly Pelvis: other - Bilateral wound dressing in place over gluteal area. Wound vac in place, left gluteal area. no pus, no erythema. Sue in place on right gluteal are without dehisence, pus, warmth. Edema: no edema noted Arm (L), no edema noted Arm (R), no edema noted Leg (L), no edema noted Leg (R), no edema noted Pedal (L), no edema noted Pedal (R), no edema noted Generalized LEONARDO VASQUEZ 02/06/17 1620: Assessment/Plan Assessment/Plan I saw and examined the patient, reviewed the case in detail, reviewed radiology and EKG if applicable, in addition reviewing the laboratory data and microbiology. I agree with the history, physical examination findings, assessment and plan of care as outlined above by the Nurse Practitioner with any additions or modifications noted. Subjective Allergies: Coded Allergies: No Known Allergies (Unverified , 03/04/16) RAFAEL VÁSQUEZ N.P. Feb 01, 2017 13:17 LEONARDO VASQUEZ Feb 06, 2017 16:20
[2017-02-01] MEDS: D5NS 1,000 ML IV SCH (17:26)
[2017-02-02 00:09] VITALS: BP 110/69
[2017-02-02] MEDS: HYDROmorphone 1mg/ml Carpuject IVP PRN ×3 (00:58→13:20)
[2017-02-02 04:00] VITALS: BP 111/64
[2017-02-02] MEDS: D5NS 1,000 ML IV SCH (06:00)
[2017-02-02] MEDS: ceFAZolin 1gm in D5W 55ml IVPB SCH ×2 (06:33→13:20)
[2017-02-02] MEDS: Docusate 100mg tablet ORAL SCH (08:28)
[2017-02-02 08:29] VITALS: BP 99/60
[2017-02-02] MEDS ORDERED: Tubing IV Secondary IV ONE (08:50)
[2017-02-02] MEDS ORDERED: D5NS 1000ml IV ONE (08:51)
[2017-02-02] MEDS ORDERED: AMBIEN5 MG ORAL ×2 (08:52→15:45)
--- NOTE | 2017-02-02 08:54 | Discharge Instructions ---
Discharge Instructions Discharge Instructions Follow up with: Dr. Sloan as directed Call MD/Return to Hospital if: if you notice increase in yellow, green pus, swelling, redness at the skin Resume Normal Activity?: No - avoid high impact activities while skin heals For Surgical Patients Clean and Dry: surgical site For Congestive Heart Failure Reminder Report to your physician any weight gain of 5 pounds or more in one week. RAFAEL VÁSQUEZ N.P. Feb 02, 2017 08:54
[2017-02-02] MEDS: Heparin 5000 units/ml inj SUBQ SCH (09:00)
--- NOTE | 2017-02-02 09:06 | Discharge Summary ---
RAFAEL VÁSQUEZ NCaioPCaio 02/02/17 0906: Discharge Summary Hospital Course Date of Admission Jan 29, 2017 at 20:59 Date of Discharge January 31, 2017 Admitting Diagnosis Hidradenitis suppurativa/PRE-OP Reason for Hospitalization: revision and partial closure of sacral wound on 01/30 HPI Courtney Yoder is a 41 year old female who was admitted on Jan 29, 2017 at 20:59 for Hidradenitis Suppurativa,Pre-Op. Hospital Course She was started received IV antibiotics for soft skin infection. She was seen by plastic surgery (Dr. Sloan) and taken to OR on 01/30/17 for revision and partial closure of sacral wound on 01/30/17. Her surgical sites were dressed and continually assessed and remained free from an post-op complications. On day of discharge, is ambulatory, afebrile, and able to tolerate PO food and fluid. She is to go home with wound vac, 7 day course of Doxycycline, PO narcotics. She is to follow up with Dr. Sloan after discharge. Discharge Discharge Disposition Patient was discharged to home Discharge Diagnoses: (1) Wound dehiscence (2) Hidradenitis suppurativa (3) Abscess of skin and subcutaneous tissue Discharge Instructions Discharge Instructions Follow up with: Dr. Sloan as directed Call MD/Return to Hospital if: if you notice increase in yellow, green pus, swelling, redness at the skin For Surgical Patients Clean and Dry: surgical site LEONARDO VASQUEZ 02/06/17 1623: Discharge Summary Discharge Discharge Disposition I saw and examined the patient, reviewed the case in detail, reviewed radiology and EKG if applicable, in addition reviewing the laboratory data and microbiology. I agree with the history, physical examination findings, assessment and plan of care as outlined above by the Nurse Practitioner with any additions or modifications noted. Discharge Diagnoses: RAFAEL VÁSQUEZ N.P. Feb 02, 2017 09:06 LEONARDO VASQUEZ Feb 06, 2017 16:23
[2017-02-02 12:00] VITALS: BP 111/64
[2017-02-02] MEDS ORDERED: COLACE100 MG ORAL (15:45)
[2017-02-02] MEDS ORDERED: DOXYCYCLINE MO100 MG ORAL (15:45)
[2017-02-02] MEDS ORDERED: ceFAZolin sod 1 GM in NS 55 ML IVP SCH (22:00)
== END 2017-02-02 16:36 | disposition home or self-care (01) | DRG 908 ==
LOC: EMR 20:10 → EDBEDREQ 20:38 → 3E 20:59 → EDBEDREQ 21:13 → 3E 01-31 18:24
PROC: 0JX90ZZ Transfer Buttock Subcutaneous Tissue and Fascia, Open Approach (ICD-10-PCS; principal; 2017-01-30 09:30)
PROC: 0JX70ZZ Transfer Back Subcutaneous Tissue and Fascia, Open Approach (ICD-10-PCS; principal; 2017-01-30 09:30)
PROC: 0HD6XZZ Extraction of Back Skin, External Approach (ICD-10-PCS; principal; 2017-01-30 09:30)
DX: T81.31XA Disruption of external operation (surgical) wound, not elsewhere classified, initial encounter (principal); L02.212 Cutaneous abscess of back [any part, except buttock and flank]; X58.XXXA Exposure to other specified factors, initial encounter; L73.2 Hidradenitis suppurativa
CPT/HCPCS: 36415; 71010; 80048; 80053; 81003; 81025; 83690; 85025; 85610; 85730; 86850; 86900; 86901; 93005; 94003; 94150; J2250; J2405; J2710